=== PATIENT | male | born 1960 | race Caucasian/White ===

== ENCOUNTER 2021-07-25 10:04 | Outpatient (REF) | payer OTHER, SELFPAY ==
[2021-07-25 13:41] LABS: MANUAL DIFF FLAG NO
[2021-07-25 13:45] LABS: Basophils Absolute Auto 0.1 X10*3/uL (0.0-0.2); Basophils Percent Auto 0.6 % (0-2); Eosinophils Absolute Auto 0.6 X10*3/uL (0.0-0.4); Eosinophils Percent Auto 6.8 % (0-4); Hematocrit 40.7 % (42.0-52.0); Hemoglobin 13.5 g/dl (14.0-18.0); Imm Gran Abs Auto 0.03 X10*3/uL (0.00-0.03); Imm Gran Pct Auto 0.4 % (0.0-0.4); Lymphocytes Absolute Auto 1.2 X10*3/uL (1.2-4.9); Mean Corpuscular HGB Conc 33.2 g/dl (31.0-36.0); Mean Corpuscular Hemoglobin 29.6 pg (27.0-33.0); Mean Corpuscular Volume 89.3 fL (80.0-98.0); Mean Platelet Volume 10.1 fL (9.4-12.4); Monocytes Absolute Auto 0.6 X10*3/uL (0.1-1.2); Monocytes Percent Auto 7.4 % (2-11); Neutrophils Absolute Auto 6.01 x10*3/uL (2.0-8.3); Neutrophils Percent Auto 70.8 % (45-73); Platelet Count 219 X10*3/uL (160-400); Red Blood Count 4.56 X10*6/uL (4.60-5.80); Red Cell Distribution Width 13.2 % (11.0-16.0); White Blood Count 8.5 X10*3/uL (4.8-10.8)
[2021-07-25 13:58] LABS: Estimated Average Glucose 171 mg/dL; Hemoglobin A1c % 7.6 %
[2021-07-25 14:12] LABS: Creatinine Urine 132.69 mg/dL
[2021-07-25 14:19] LABS: Alanine Aminotransferase 27 U/L (0-40); Albumin Level 4.4 g/dL (3.5-5.0); Alkaline Phosphatase 170 U/L (39-117); Anion Gap 14 (12-20); Aspartate Amino Transferase 29 U/L (5-37); Bilirubin Total 0.6 mg/dL (0.0-1.0); Blood Urea Nitrogen 18 mg/dL (9-16); Calcium 9.2 mg/dL (8.4-10.2); Carbon Dioxide 24 mmol/L (22-29); Chloride 104 mmol/L (96-108); Cholesterol 175 mg/dL; Estimated Glomerular Filt Rate 55; Glucose Fasting 179 mg/dL (60-99); HDL Cholesterol 28 mg/dL; LDL Cholesterol Calculated 83 mg/dl; Potassium 4.6 mmol/L (3.3-5.1); Sodium 137 mmol/L (135-145); Total Protein 7.2 g/dL (6.5-8.0); Triglycerides 322 mg/dL
[2021-07-25 14:33] LABS: Prostate Specific Antigen Scr 0.93 ng/mL (<0.05-4.0)
== END 2021-07-25 10:05 | disposition home or self-care (01) ==
LOC: HO.10HDL 10:04
PROVIDERS: Visit Provider Internal Medicine
DX: Z12.5 Encounter for screening for malignant neoplasm of prostate (principal); E78.00 Pure hypercholesterolemia, unspecified; I12.9 Hypertensive chronic kidney disease with stage 1 through stage 4 chronic kidney disease, or unspecified chronic kidney disease; N18.9 Chronic kidney disease, unspecified; E11.22 Type 2 diabetes mellitus with diabetic chronic kidney disease; R35.1 Nocturia
CPT/HCPCS: 36415; 80053; 80061; 82043; 83036; 84153; 85025

== ENCOUNTER 2022-02-11 09:25 | Outpatient (REF) | payer OTHER, SELFPAY ==
[2022-02-11 10:22] LABS: MANUAL DIFF FLAG NO
[2022-02-11 10:24] LABS: Basophils Absolute Auto 0.1 X10*3/uL (0.0-0.2); Basophils Percent Auto 0.8 % (0-2); Eosinophils Absolute Auto 0.5 X10*3/uL (0.0-0.4); Eosinophils Percent Auto 5.9 % (0-4); Hematocrit 41.7 % (42.0-52.0); Hemoglobin 14.1 g/dl (14.0-18.0); Imm Gran Abs Auto 0.06 X10*3/uL (0.00-0.03); Imm Gran Pct Auto 0.7 % (0.0-0.4); Lymphocytes Absolute Auto 1.5 X10*3/uL (1.2-4.9); Lymphocytes Percent Auto 17.9 % (20-40); Mean Corpuscular HGB Conc 33.8 g/dl (31.0-36.0); Mean Corpuscular Hemoglobin 29.9 pg (27.0-33.0); Mean Corpuscular Volume 88.3 fL (80.0-98.0); Mean Platelet Volume 9.7 fL (9.4-12.4); Monocytes Absolute Auto 0.7 X10*3/uL (0.1-1.2); Monocytes Percent Auto 8.4 % (2-11); Neutrophils Absolute Auto 5.7 x10*3/uL (2.0-8.3); Neutrophils Percent Auto 66.3 % (45-73); Platelet Count 229 X10*3/uL (160-400); Red Blood Count 4.72 X10*6/uL (4.60-5.80); Red Cell Distribution Width 13.2 % (11.0-16.0); White Blood Count 8.5 X10*3/uL (4.8-10.8)
[2022-02-11 10:49] LABS: Carbon Dioxide 22 mmol/L (22-29); Chloride 106 mmol/L (96-108); Potassium 4.5 mmol/L (3.3-5.1); Sodium 137 mmol/L (135-145)
[2022-02-11 10:50] LABS: Alanine Aminotransferase 28 U/L (0-40); Albumin Level 4.5 g/dL (3.5-5.0); Alkaline Phosphatase 170 U/L (39-117); Anion Gap 14 (12-20); Aspartate Amino Transferase 26 U/L (5-37); Bilirubin Total 0.3 mg/dL (0.0-1.0); Blood Urea Nitrogen 22 mg/dL (9-16); Calcium 9.7 mg/dL (8.4-10.2); Cholesterol 196 mg/dL; Estimated Glomerular Filt Rate 53; Glucose Fasting 142 mg/dL (60-99); HDL Cholesterol 30 mg/dL; LDL Cholesterol Calculated 108 mg/dl; Total Protein 7.6 g/dL (6.5-8.0); Triglycerides 292 mg/dL
[2022-02-11 10:52] LABS: Creatinine Urine 82.01 mg/dL; Microalbum/Creatinine Ratio Ur 41.4 ug/mg cr
[2022-02-11 11:04] LABS: Estimated Average Glucose 169 mg/dL; Hemoglobin A1c % 7.5 %
== END 2022-02-11 09:26 | disposition home or self-care (01) ==
LOC: HO.10HDL 09:25
PROVIDERS: Visit Provider Internal Medicine
DX: I12.9 Hypertensive chronic kidney disease with stage 1 through stage 4 chronic kidney disease, or unspecified chronic kidney disease (principal); N18.9 Chronic kidney disease, unspecified; E11.22 Type 2 diabetes mellitus with diabetic chronic kidney disease; E78.5 Hyperlipidemia, unspecified
CPT/HCPCS: 36415; 80053; 80061; 82043; 83036; 85025

== ENCOUNTER 2022-08-06 11:39 | Outpatient (REF) | payer OTHER, SELFPAY ==
[2022-08-06 13:59] LABS: MANUAL DIFF FLAG NO
[2022-08-06 14:18] LABS: Basophils Absolute Auto 0.1 X10*3/uL (0.0-0.2); Basophils Percent Auto 0.7 % (0-2); Eosinophils Absolute Auto 0.7 X10*3/uL (0.0-0.4); Eosinophils Percent Auto 8.1 % (0-4); Hematocrit 38.7 % (42.0-52.0); Hemoglobin 12.6 g/dl (14.0-18.0); Imm Gran Abs Auto 0.02 X10*3/uL (0.00-0.03); Imm Gran Pct Auto 0.2 % (0.0-0.4); Lymphocytes Absolute Auto 1.6 X10*3/uL (1.2-4.9); Lymphocytes Percent Auto 19.1 % (20-40); Mean Corpuscular HGB Conc 32.6 g/dl (31.0-36.0); Mean Corpuscular Hemoglobin 29.4 pg (27.0-33.0); Mean Corpuscular Volume 90.4 fL (80.0-98.0); Mean Platelet Volume 9.9 fL (9.4-12.4); Monocytes Absolute Auto 0.6 X10*3/uL (0.1-1.2); Monocytes Percent Auto 7.4 % (2-11); Neutrophils Absolute Auto 5.3 x10*3/uL (2.0-8.3); Neutrophils Percent Auto 64.5 % (45-73); Platelet Count 217 X10*3/uL (160-400); Red Blood Count 4.28 X10*6/uL (4.60-5.80); Red Cell Distribution Width 14.4 % (11.0-16.0); White Blood Count 8.2 X10*3/uL (4.8-10.8)
[2022-08-06 14:21] LABS: Alanine Aminotransferase 33 U/L (0-40); Albumin Level 4.3 g/dL (3.5-5.0); Alkaline Phosphatase 150 U/L (39-117); Anion Gap 14 (12-20); Aspartate Amino Transferase 33 U/L (5-37); Bilirubin Total 0.4 mg/dL (0.0-1.0); Blood Urea Nitrogen 14 mg/dL (9-16); Calcium 8.8 mg/dL (8.4-10.2); Carbon Dioxide 24 mmol/L (22-29); Chloride 107 mmol/L (96-108); Estimated Glomerular Filt Rate 58; Glucose Random 144 mg/dL (60-115); Potassium 4.4 mmol/L (3.3-5.1); Sodium 141 mmol/L (135-145); Total Protein 7.1 g/dL (6.5-8.0)
[2022-08-06 14:26] LABS: Estimated Average Glucose 148 mg/dL; Hemoglobin A1c % 6.8 %
== END 2022-08-06 11:40 | disposition home or self-care (01) ==
LOC: HO.HMGCLDS 11:39
PROVIDERS: PCP Internal Medicine; Visit Provider Internal Medicine
DX: E11.22 Type 2 diabetes mellitus with diabetic chronic kidney disease (principal); I12.9 Hypertensive chronic kidney disease with stage 1 through stage 4 chronic kidney disease, or unspecified chronic kidney disease; N18.9 Chronic kidney disease, unspecified; Z79.4 Long term (current) use of insulin
CPT/HCPCS: 36415; 80053; 83036; 85025

== ENCOUNTER 2023-01-09 11:47 | Outpatient (REF) | payer OTHER, SELFPAY ==
[2023-01-09 13:35] LABS: MANUAL DIFF FLAG NO
[2023-01-09 13:37] LABS: Basophils Absolute Auto 0.1 X10*3/uL (0.0-0.2); Basophils Percent Auto 0.7 % (0-2); Eosinophils Absolute Auto 0.3 X10*3/uL (0.0-0.4); Hematocrit 40.5 % (42.0-52.0); Hemoglobin 13.8 g/dl (14.0-18.0); Imm Gran Abs Auto 0.04 X10*3/uL (0.00-0.03); Imm Gran Pct Auto 0.6 % (0.0-0.4); Lymphocytes Absolute Auto 1.4 X10*3/uL (1.2-4.9); Lymphocytes Percent Auto 19.5 % (20-40); Mean Corpuscular HGB Conc 34.1 g/dl (31.0-36.0); Mean Corpuscular Hemoglobin 30.8 pg (27.0-33.0); Mean Corpuscular Volume 90.4 fL (80.0-98.0); Monocytes Absolute Auto 0.6 X10*3/uL (0.1-1.2); Monocytes Percent Auto 8.9 % (2-11); Neutrophils Absolute Auto 4.8 x10*3/uL (2.0-8.3); Neutrophils Percent Auto 66.3 % (45-73); Platelet Count 205 X10*3/uL (160-400); Red Blood Count 4.48 X10*6/uL (4.60-5.80); Red Cell Distribution Width 14.1 % (11.0-16.0); White Blood Count 7.2 X10*3/uL (4.8-10.8)
[2023-01-09 13:54] LABS: Estimated Average Glucose 171 mg/dL; Hemoglobin A1c % 7.6 %
[2023-01-09 14:00] LABS: Alanine Aminotransferase 30 U/L (0-40); Albumin Level 4.2 g/dL (3.5-5.0); Alkaline Phosphatase 168 U/L (39-117); Anion Gap 16 (12-20); Aspartate Amino Transferase 22 U/L (5-37); Bilirubin Total 0.5 mg/dL (0.0-1.0); Blood Urea Nitrogen 25 mg/dL (9-16); Calcium 8.8 mg/dL (8.4-10.2); Carbon Dioxide 20 mmol/L (22-29); Chloride 107 mmol/L (96-108); Cholesterol 185 mg/dL; Estimated Glomerular Filt Rate 42; Glucose Fasting 174 mg/dL (60-99); HDL Cholesterol 30 mg/dL; LDL Cholesterol Calculated 106 mg/dl; Sodium 138 mmol/L (135-145); Total Protein 6.7 g/dL (6.5-8.0); Triglycerides 249 mg/dL
[2023-01-09 14:07] LABS: Creatinine Urine 121.86 mg/dL; Microalbum/Creatinine Ratio Ur 22.9 ug/mg cr
== END 2023-01-09 11:48 | disposition home or self-care (01) ==
LOC: HO.10HDL 11:47
PROVIDERS: Visit Provider Internal Medicine
DX: Z12.5 Encounter for screening for malignant neoplasm of prostate (principal); I12.9 Hypertensive chronic kidney disease with stage 1 through stage 4 chronic kidney disease, or unspecified chronic kidney disease; E11.22 Type 2 diabetes mellitus with diabetic chronic kidney disease; N18.9 Chronic kidney disease, unspecified; R35.1 Nocturia
CPT/HCPCS: 36415; 80053; 80061; 82043; 83036; 84153; 85025

== ENCOUNTER 2023-07-07 11:30 | Outpatient (REF) | payer OTHER, SELFPAY ==
[2023-07-07 13:09] LABS: MANUAL DIFF FLAG NO
[2023-07-07 13:28] LABS: Basophils Absolute Auto 0.1 X10*3/uL (0.0-0.2); Basophils Percent Auto 0.5 % (0-2); Eosinophils Absolute Auto 0.3 X10*3/uL (0.0-0.4); Eosinophils Percent Auto 3.3 % (0-4); Hematocrit 39.5 % (42.0-52.0); Imm Gran Abs Auto 0.06 X10*3/uL (0.00-0.03); Imm Gran Pct Auto 0.6 % (0.0-0.4); Lymphocytes Absolute Auto 1.4 X10*3/uL (1.2-4.9); Lymphocytes Percent Auto 13.7 % (20-40); Mean Corpuscular HGB Conc 32.9 g/dl (31.0-36.0); Mean Corpuscular Hemoglobin 29.8 pg (27.0-33.0); Mean Corpuscular Volume 90.6 fL (80.0-98.0); Mean Platelet Volume 9.8 fL (9.4-12.4); Monocytes Absolute Auto 0.7 X10*3/uL (0.1-1.2); Monocytes Percent Auto 6.5 % (2-11); Neutrophils Absolute Auto 7.6 x10*3/uL (2.0-8.3); Neutrophils Percent Auto 75.4 % (45-73); Platelet Count 233 X10*3/uL (160-400); Red Blood Count 4.36 X10*6/uL (4.60-5.80); Red Cell Distribution Width 14.2 % (11.0-16.0); White Blood Count 10.1 X10*3/uL (4.8-10.8)
[2023-07-07 13:55] LABS: Alanine Aminotransferase 28 U/L (0-40); Albumin Level 4.3 g/dL (3.5-5.0); Alkaline Phosphatase 142 U/L (39-117); Anion Gap 17 (12-20); Aspartate Amino Transferase 25 U/L (5-37); Bilirubin Total 0.4 mg/dL (0.0-1.0); Blood Urea Nitrogen 25 mg/dL (9-16); Calcium 9.5 mg/dL (8.4-10.2); Carbon Dioxide 18 mmol/L (22-29); Chloride 106 mmol/L (96-108); Estimated Glomerular Filt Rate 52; Glucose Random 218 mg/dL (60-115); Sodium 137 mmol/L (135-145); Total Protein 7.5 g/dL (6.5-8.0)
[2023-07-07 13:58] LABS: Thyroid Stimulating Hormone 2.65 uIU/mL (0.32-4.0)
[2023-07-07 14:09] LABS: Estimated Average Glucose 148 mg/dL; Hemoglobin A1c % 6.8 % (<6.0)
[2023-07-07 14:09] LABS: Creatinine Urine 75.16 mg/dL; Microalbum/Creatinine Ratio Ur 31.9 ug/mg cr (<30)
== END 2023-07-07 11:31 | disposition home or self-care (01) ==
LOC: HO.HMGCLDS 11:30
PROVIDERS: PCP Internal Medicine; Visit Provider Internal Medicine
DX: I12.9 Hypertensive chronic kidney disease with stage 1 through stage 4 chronic kidney disease, or unspecified chronic kidney disease (principal); E11.22 Type 2 diabetes mellitus with diabetic chronic kidney disease; N18.9 Chronic kidney disease, unspecified; R60.0 Localized edema
CPT/HCPCS: 36415; 80053; 82043; 82570; 83036; 84443; 85025

== ENCOUNTER 2023-12-03 11:14 | Outpatient (REF) | payer OTHER, SELFPAY ==
[2023-12-03 13:20] LABS: MANUAL DIFF FLAG NO
[2023-12-03 13:33] LABS: Basophils Absolute Auto 0.1 X10*3/uL (0.0-0.2); Basophils Percent Auto 0.6 % (0-2); Eosinophils Absolute Auto 0.7 X10*3/uL (0.0-0.4); Eosinophils Percent Auto 8.4 % (0-4); Hematocrit 40.9 % (42.0-52.0); Hemoglobin 13.8 g/dl (14.0-18.0); Imm Gran Abs Auto 0.03 X10*3/uL (0.00-0.03); Imm Gran Pct Auto 0.4 % (0.0-0.4); Lymphocytes Absolute Auto 1.4 X10*3/uL (1.2-4.9); Lymphocytes Percent Auto 17.1 % (20-40); Mean Corpuscular HGB Conc 33.7 g/dl (31.0-36.0); Mean Corpuscular Hemoglobin 29.6 pg (27.0-33.0); Mean Corpuscular Volume 87.8 fL (80.0-98.0); Mean Platelet Volume 9.8 fL (9.4-12.4); Monocytes Absolute Auto 0.5 X10*3/uL (0.1-1.2); Monocytes Percent Auto 5.6 % (2-11); Neutrophils Absolute Auto 5.5 x10*3/uL (2.0-8.3); Neutrophils Percent Auto 67.9 % (45-73); Platelet Count 243 X10*3/uL (160-400); Red Blood Count 4.66 X10*6/uL (4.60-5.80); Red Cell Distribution Width 13.6 % (11.0-16.0); White Blood Count 8.1 X10*3/uL (4.8-10.8)
[2023-12-03 13:47] LABS: Alanine Aminotransferase 20 U/L (0-40); Albumin Level 4.3 g/dL (3.5-5.0); Alkaline Phosphatase 141 U/L (39-117); Anion Gap 12 (12-20); Aspartate Amino Transferase 24 U/L (5-37); Bilirubin Total 0.3 mg/dL (0.0-1.0); Blood Urea Nitrogen 17 mg/dL (9-16); Calcium 9.5 mg/dL (8.4-10.2); Carbon Dioxide 24 mmol/L (22-29); Chloride 108 mmol/L (96-108); Estimated Glomerular Filt Rate 59; Glucose Random 192 mg/dL (60-115); Iron 43 mcg/dL (45-160); Percent Iron Saturation 14 % (15-50); Potassium 4.1 mmol/L (3.3-5.1); Sodium 140 mmol/L (135-145); Total Iron Binding Capacity 301 mcg/dL (228-428); Total Protein 7.5 g/dL (6.5-8.0); Unsaturated Iron Binding 258 ug/dL
[2023-12-03 14:34] LABS: Vitamin B12 359 pg/mL (200-900)
[2023-12-03 15:07] LABS: Estimated Average Glucose 120 mg/dL; Hemoglobin A1c % 5.8 % (<6.0)
[2023-12-03 16:51] LABS: Creatinine Urine 142.02 mg/dL; Microalbum/Creatinine Ratio Ur 23.2 ug/mg cr (<30)
== END 2023-12-03 11:15 | disposition home or self-care (01) ==
LOC: HO.HMGCLDS 11:14
PROVIDERS: PCP Internal Medicine; Visit Provider Internal Medicine
DX: E11.9 Type 2 diabetes mellitus without complications (principal); N18.9 Chronic kidney disease, unspecified; D64.9 Anemia, unspecified
CPT/HCPCS: 36415; 80053; 82043; 82570; 82607; 83036; 83540; 85025

== ENCOUNTER 2024-01-11 12:00 | Emergency (ER) | payer OTHER, SELFPAY ==
[2024-01-11 12:05] VITALS: BP 139/76; PULSE 92; RESP 19; TEMP 36.6; O2SAT 99; BMI 42.5
--- NOTE | 2024-01-11 12:06 | ED_ITS ---
HPI - General Adult General Chief complaint: Wound/Laceration Stated complaint: Leg lac Time Seen by Provider: 01/11/24 13:24 Source: patient and family Mode of arrival: ambulatory Limitations: no limitations History of Present Illness HPI narrative: 63-year-old male with a history of diabetes presents the ER with complaints of laceration to the right lower leg. Patient reports that he has a healing wound on his right lower leg. He had it covered with a bandage and tried to cut the bandage scissors but he slipped causing a laceration to his right lower leg. Patient reports he is unable to stop the bleeding at home. He has not on any anticoagulation or aspirin therapy. He denies any associated weakness, numbness or tingling of the extremity. His last known tetanus is unknown Related Data Allergies Allergy/AdvReac Type Severity Reaction Status Date / Time No Known Allergies Allergy Verified 01/11/24 12:07 Review of Systems Review of Systems: Yes all other systems are reviewed and are negative Constitutional: Constitutional: Reports no additional constitutional complaints, Denies body ache(s), Denies chills, Denies fever(s), Denies headache(s) and Denies weakness Eyes: Eyes: Reports no additional eye complaints and Denies change in vision ENT: Reports system reviewed and no additional complaints, except as docume nted, Denies dizziness, Denies headache(s), Denies nasal congestion, Denies nasal discharge and Denies neck pain Cardiovascular: Cardiovascular: Reports no additional cardiovascular complaints, Denies chest pain, Denies leg edema and Denies dyspnea Respiratory: Respiratory: Reports no additional respiratory complaints, Denies cough and Denies dyspnea Gastrointestinal: Gastrointestinal: Reports no additional gastrointestinal complaints, Denies abdominal pain, Denies diarrhea, Denies nausea and Denies vomiting Genitourinary: Genitourinary: Denies urinary incontinence Musculoskeletal: Musculoskeletal: Reports no additional musculoskeletal complaints, Denies back pain, Denies arthralgias, Denies joint swelling, Denies neck pain, Denies numbness and Denies tingling Integumentary/Breasts: Skin/Breast: Reports system reviewed and no additional complaints, except as docu, Denies rash and Reports wounds Neurologic: Reports system reviewed and no additional complaints, except as documented, Denies Abnormal speech present, Denies dizziness, Denies headache(s), Denies numbness, Denies tingling and Denies weakness PMFSH Past Medical History Attestation statement: The following information was validated with the patient. Source: old records reviewed and nursing notes reviewed Social History Social History Alcohol intake: never Smoked in Last 30 Days: No Use of substances other than those prescribed or required for medical reasons: No Advance Directives: No Advance Directives Information Provided: No Physical Exam ED Vital Signs: Vital Signs - 24 hr 01/11/24 12:05 01/11/24 13:11 01/11/24 14:46 Temperature 98 F 98.1 F Pulse Rate 92 90 90 Respiratory Rate 19 18 18 Blood Pressure 139/76 122/79 122/79 Pulse Oximetry 99 97 97 Oxygen Delivery Method Room Air Room Air Room Air BMI result Body Mass Index 42.5 Const General: cooperative, healthy appearing, comfortable and no acute distress Orientation/consciousness: patient oriented x3 Limitations: no limitations HENMT Head: Yes normal to inspection Ears: hearing grossly normal bilaterally General nose exam: Normal external nose present Face and sinus: Yes normal facial exam Mouth: Normal oral and palatal mucosa present Throat: Yes posterior oropharynx normal Eyes General: appearance normal, both eyes and all related structures Pupils: Equal, round and reactive pupils present Neck Neck: Yes normal visual inspection Chest Chest palpation & inspection: normal inspection of the chest Resp Effort & Inspection: normal respiratory effort Auscultation: clear to auscultation bilaterally Cardio Rate: regular rate Rhythm: regular rhythm Peripheral pulses: Peripheral pulses 2+ throughout GI Inspection: Yes normal to inspection Palpation (GI): Soft to palpation and nontender Auscultation: normal bowel sounds Back/Spine/Pelvis Thoracic/Lumbar Spine: thoracic and lumbar spine normal to inspection Skin General skin exam: no rashes or lesions noted Neuro General: patient oriented x3, no focal motor deficits and normal sensation to monofilament Cranial nerves: Yes Equal, round and reactive pupils present Cognition (Neuro): normal cognition Speech: No Abnormal speech present Gait exam (Neuro): Normal gait present Motor exam (neuro): 5/5 motor strength present throughout Extrem Other: To the right lower leg there is a laceration which is approximately 4 cm with active bleeding CMS intact distally 2+ DP and PT pulse General: Yes normal to inspection Course Course Course Narrative: RME: 63 yold male presents to the ED after accidently cutting his leg with scizzor while tyring to cut off the bandaid from his leg. tdap ordered. Medications Administered Discontinued Medications Generic Name Dose Route Start Last Admin Trade Name Mary PRN Reason Stop Dose Admin Diphtheria/Tetanus/Acell Pertussis 0.5 ml 01/11/24 12:05 01/11/24 13:10 Diphth,Pertus(Acell),Tet Adult 0.5 Ml Syringe IM 01/11/24 12:06 0.5 ml .ONCE ONE Administration Lidocaine/Epinephrine 20 ml 01/11/24 13:37 01/11/24 13:43 Lidocaine Hcl 1%/Epi 1:100,000 20 Ml Vial INFILTRATI 01/11/24 13:38 Not Given ONCE ONE Lidocaine/Epinephrine 10 ml 01/11/24 13:39 01/11/24 13:57 Lidocaine Hcl 1%/Epi 1:100,000 30 Ml Vial INFILTRATI 01/11/24 13:40 Not Given ONCE ONE Lidocaine/Epinephrine 10 ml 01/11/24 13:40 01/11/24 13:56 Lidocaine Hcl 1%/Epi 1:100,000 10 Ml Vial INFILTRATI 01/11/24 13:41 10 ml ONCE ONE Administration Procedures Laceration Laceration 1: Site: lower extremity Side (If applicable): right Size (cm): 4 Description: linear Depth: simple, single layer Local Anesthetic: lidocaine 1% and with epi Amount of anesthesia used (mL): 10 Pre-repair: wound explored and irrigated extensively (2 L NS) Skin layer closed with: vicryl Size (cm): 5-0 Number of sutures: 3 Technique: simple, interrupted Medical Decision Making Medical Decision Making MDM Narrative: 63-year-old male with a history of diabetes presents the ER with complaints of laceration to the right lower leg.? Patient reports that he has a healing wound on his right lower leg.? He had it covered with a bandage and tried to cut the bandage scissors but he slipped causing a laceration to his right lower leg.? Patient reports he is unable to stop the bleeding at home.? He has not on any anticoagulation or aspirin therapy.? He denies any associated weakness, numbness or tingling of the extremity.? His last known tetanus is unknown To the right lower leg there is a laceration which is approximately 4 cm with active bleeding CMS intact distally 2+ DP and PT pulse Tetanus updated 10 mL of lidocaine with epinephrine was infiltrated into the site which improved bleeding. See procedure note for wound closure. Patient was then observed for 15-20 minutes postprocedure to ensure the bleeding was controlled. No additional bleeding and patient was discharged home Differential Diagnosis Differential Diagnoses: The differential diagnosis associated with the presentation includes Laceration Low suspicion for vascular injury, FB Admission/Observation Consideration of admission/observation: Escalation of care including admission/observation considered Low suspicion for vascular injury, foreign body requiring imaging, urgent orthopedic consultation and/or admission Independent Historian Clinical information obtained from an independent historian. History obtained from or confirmed by: Spouse Tests considered The following testing was considered but not selected: Low suspicion for vascular injury, foreign body requiring imaging, Prescription Management I considered prescription management with: Antibiotic Patient is on antibiotics for left foot infection currently Discharge Plan Discharge Clinical Impression: Laceration Patient Disposition: Home, Self-Care Instructions: Laceration (ED) Additional Instructions: Sutures out in 7-10 days Keep the wound clean covered and dry for the next 24 hours and then you may remove it and change dressing daily. Please keep the site wrapped with plastic wrap while showering and do not get it wet Referrals: Quinton Lovell MD [Primary Care Provider] - 1 week Interventions: ED Discharge Assessment Last Done: 01/11/24 14:46 Discharge Date/Time: 01/11/24 14:47 Print Language: East Timorese
[2024-01-11] MEDS: Diphth,Pertus(ACell),Tet Adult 0.5 ML SYRINGE IM (13:10)
[2024-01-11 13:11] VITALS: BP 122/79; PULSE 90; RESP 18; O2SAT 97
[2024-01-11] MEDS: Lidocaine HCl 1%/Epi 1:100,000 10 ML VIAL INFILTRATI (13:56)
[2024-01-11 14:46] VITALS: BP 122/79; PULSE 90; RESP 18; TEMP 36.7; O2SAT 97
== END 2024-01-11 14:47 | disposition home or self-care (01) ==
PROVIDERS: Emergency Provider Emergency Medicine; PCP Internal Medicine
DX: S81.811A Laceration without foreign body, right lower leg, initial encounter (principal); S80.811A Abrasion, right lower leg, initial encounter; W26.9XXA Contact with unspecified sharp object(s), initial encounter; Y93.9 Activity, unspecified; Y92.9 Unspecified place or not applicable; Y99.8 Other external cause status
CPT/HCPCS: 12002; 90471; 90715; 99284

== ENCOUNTER 2024-06-01 11:23 | Outpatient (REF) | payer OTHER, SELFPAY ==
[2024-06-01 13:09] LABS: MANUAL DIFF FLAG NO
[2024-06-01 13:18] LABS: Basophils Absolute Auto 0.1 X10*3/uL (0.0-0.2); Basophils Percent Auto 0.8 % (0-2); Eosinophils Absolute Auto 0.6 X10*3/uL (0.0-0.4); Eosinophils Percent Auto 10.2 % (0-4); Hematocrit 39.6 % (42.0-52.0); Hemoglobin 13.2 g/dl (14.0-18.0); Imm Gran Abs Auto 0.02 X10*3/uL (0.00-0.03); Imm Gran Pct Auto 0.3 % (0.0-0.4); Lymphocytes Absolute Auto 1.2 X10*3/uL (1.2-4.9); Lymphocytes Percent Auto 19.9 % (20-40); Mean Corpuscular HGB Conc 33.3 g/dl (31.0-36.0); Mean Corpuscular Hemoglobin 29.3 pg (27.0-33.0); Mean Corpuscular Volume 87.8 fL (80.0-98.0); Mean Platelet Volume 9.9 fL (9.4-12.4); Monocytes Absolute Auto 0.5 X10*3/uL (0.1-1.2); Monocytes Percent Auto 8.7 % (2-11); Neutrophils Absolute Auto 3.6 x10*3/uL (2.0-8.3); Neutrophils Percent Auto 60.1 % (45-73); Platelet Count 200 X10*3/uL (160-400); Red Blood Count 4.51 X10*6/uL (4.60-5.80)
[2024-06-01 13:51] LABS: Alanine Aminotransferase 29 U/L (0-40); Albumin Level 4.2 g/dL (3.5-5.0); Alkaline Phosphatase 137 U/L (39-117); Anion Gap 13 (12-20); Aspartate Amino Transferase 27 U/L (5-37); Bilirubin Total 0.3 mg/dL (0.0-1.0); Blood Urea Nitrogen 21 mg/dL (9-16); Calcium 8.8 mg/dL (8.4-10.2); Carbon Dioxide 21 mmol/L (22-29); Chloride 112 mmol/L (96-108); Cholesterol 161 mg/dL (<200); Estimated Glomerular Filt Rate 56; Glucose Fasting 84 mg/dL (60-99); HDL Cholesterol 30 mg/dL (>40); LDL Cholesterol Calculated 85 mg/dL (<100); Potassium 4.1 mmol/L (3.3-5.1); Sodium 142 mmol/L (135-145); Triglycerides 231 mg/dL (<150)
[2024-06-02 11:04] LABS: Free Prostate Spec Ag 0.7 ng/mL; Percent Free Prostate Spec Ag 39 % (calc) (>25); Prostate Specific Ag Total 1.8 ng/mL (< OR = 4.0)
== END 2024-06-01 11:24 | disposition home or self-care (01) ==
LOC: HO.HMGCLDS 11:23
PROVIDERS: PCP Internal Medicine; Visit Provider Internal Medicine
DX: E11.22 Type 2 diabetes mellitus with diabetic chronic kidney disease (principal); E11.40 Type 2 diabetes mellitus with diabetic neuropathy, unspecified; I12.9 Hypertensive chronic kidney disease with stage 1 through stage 4 chronic kidney disease, or unspecified chronic kidney disease; N18.9 Chronic kidney disease, unspecified
CPT/HCPCS: 36415; 80053; 80061; 84154; 85025

== ENCOUNTER 2024-09-29 10:28 | Outpatient (REF) | payer OTHER, SELFPAY ==
[2024-09-29 13:14] LABS: Basophils Absolute Auto 0.1 X10*3/uL (0.0-0.2); Basophils Percent Auto 0.8 % (0-2); Hematocrit 43.9 % (42.0-52.0); Neutrophils Percent Auto 71.3 % (45-73); Red Cell Distribution Width 13.9 % (11.0-16.0)
[2024-09-29 13:16] LABS: Eosinophils Absolute Auto 0.4 X10*3/uL (0.0-0.4); Eosinophils Percent Auto 4.9 % (0-4); Hemoglobin 14.6 g/dl (14.0-18.0); Imm Gran Abs Auto 0.02 X10*3/uL (0.00-0.03); Imm Gran Pct Auto 0.3 % (0.0-0.4); Lymphocytes Absolute Auto 1.1 X10*3/uL (1.2-4.9); Lymphocytes Percent Auto 14.9 % (20-40); Mean Corpuscular HGB Conc 33.3 g/dl (31.0-36.0); Mean Corpuscular Hemoglobin 29.9 pg (27.0-33.0); Mean Corpuscular Volume 89.8 fL (80.0-98.0); Mean Platelet Volume 10.2 fL (9.4-12.4); Monocytes Absolute Auto 0.6 X10*3/uL (0.1-1.2); Monocytes Percent Auto 7.8 % (2-11); Neutrophils Absolute Auto 5.2 x10*3/uL (2.0-8.3); Red Blood Count 4.89 X10*6/uL (4.60-5.80)
[2024-09-29 13:26] LABS: Platelet Count 204 X10*3/uL (160-400); White Blood Count 7.3 X10*3/uL (4.8-10.8)
[2024-09-29 13:29] LABS: Estimated Average Glucose 105 mg/dL; Hemoglobin A1C 133.9316 umol/L; Hemoglobin A1c % 5.3 % (<6.0); Total Hemoglobin (HGBA1C) 3867.4484 umol/L
[2024-09-29 13:46] LABS: Alanine Aminotransferase 42 U/L (0-40); Albumin Level 4.5 g/dL (3.5-5.0); Alkaline Phosphatase 137 U/L (39-117); Anion Gap 16 (12-20); Aspartate Amino Transferase 49 U/L (5-37); Bilirubin Total 0.5 mg/dL (0.0-1.0); Blood Urea Nitrogen 22 mg/dL (9-16); Calcium 9.5 mg/dL (8.4-10.2); Carbon Dioxide 21 mmol/L (22-29); Chloride 112 mmol/L (96-108); Estimated Glomerular Filt Rate 47; Glucose Random 98 mg/dL (60-115); Potassium 5.1 mmol/L (3.3-5.1); Sodium 144 mmol/L (135-145); Total Protein 8.1 g/dL (6.5-8.0)
== END 2024-09-29 10:29 | disposition home or self-care (01) ==
LOC: HO.HMGCLDS 10:28
PROVIDERS: PCP Internal Medicine; Visit Provider Internal Medicine
DX: E11.9 Type 2 diabetes mellitus without complications (principal); I10 Essential (primary) hypertension; N18.9 Chronic kidney disease, unspecified
CPT/HCPCS: 36415; 80053; 83036; 85025

== ENCOUNTER 2025-01-13 10:39 | Outpatient (AMB) | payer OTHER, SELFPAY ==
--- NOTE | 2025-01-13 10:44 | MHC.PC.OV ---
Vital Signs 01/13/25 10:46 Height 5 ft 10 in Weight 322 lb 6 oz BMI 46.3 BP 132/78 Blood Pressure Location Rt brachial Position Sitting Pulse 95 Pulse Source Pulse Oximeter Temp 96.6 F L Temp Source Temporal Artery Scan Pulse Oximetry (%) 96 Oxygen Delivery Method Room Air Intake Visit Reasons: Follow up / Intake Note: Patient is here to follow up on HTN, DM. Marketing Area Manager Required: No Lusterer: Not Required per policy Accompanied by: Self / Same As Patient Allergies No Known Allergies Allergy (Verified 01/13/25 10:46) Tobacco use date assessed: 01/13/25 Dental Screening Dental Screen Date: 01/13/25 Did you have a dental visit in the last 12 months?: Yes Did you have a dental problem in the last 6 months where you did not have access to dental care?: No Was dental information given to patient?: Patient has dentist [facility] Surgical History (Updated 01/13/25 @ 10:56 by DENIS Call) History of ear, nose, and throat (ENT) surgery History of total right knee replacement Social History (Updated 01/13/25 @ 10:45 by DENSI Call) Housing: House Alcohol intake: never Patient Tobacco Use Status: Never used Tobacco e-Cigarette/Vaping Use: Never Used Second Hand Smoke Exposure: No service: No Current occupational status: employed 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 1. Little interest or pleasure in doing things: not at all 2. Feeling down, depressed, or hopeless: not at all 3. Trouble falling or staying asleep, or sleeping too much: not at all 4. Feeling tired or having little energy: not at all 5. Poor appetite or overeating: not at all 6. Feeling bad about yourself - or that you are a failure or have let yourself or your family down: not at all 7. Trouble concentrating on things, such as reading the newspaper or watching television: not at all 8. Moving or speaking so slowly that other people could have noticed. Or the opposite - being so fidgety or restless that you have been moving around a lot more than usual: not at all 9. Thoughts that you would be better off or of hurting yourself in some way: not at all Total score: 0 Depression Screening Interpretation: Negative Depression Screening Done: Yes Source: Developed by Drs. Sundar Luna, Peggy Kevin, Omkar Vega and colleagues, with an educational john from [employer]. Thrive Questionnaire Date Thrive assessed: 01/13/25 I am a: Patient What is your living situation today?: I have a steady place to live Within the past 12 months, did the food you bought not last and you didn't have the money to get more?: Never true Within the past 12 months, did you worry whether your food would run out before you got money to buy more?: Never true Do you have trouble paying for medicines?: No Do you have trouble getting transportation to medical appointments?: No Do you have trouble paying your heating and electricity bill?: No Do you have trouble taking care of your child, family member or friend?: No Do you have trouble with day-to-day activities such as bathing, preparing meals, shopping, managing finances, etc.?: No Are you currently unemployed and looking for a job?: No Are you interested in more education?: No Please select the resources that you would like help with: None Currently or been in a relationship where the following occur: No concerns reported THRIVE Score: 0 AUDIT C Alcohol Use Questionnaire (AUDIT-C) 1. How often do you have a drink containing alcohol?: Never Total Score: 0 MELODIE-7 AMB Questionnaire MELODIE-7 Date MELODIE - 7 assessed: 01/13/25 Feeling nervous, anxious, or on edge: 0 = Not at all Not being able to stop or control worryin = Not at all Worrying too much about different things: 0 = Not at all Trouble relaxin = Not at all Being so restless that it is hard to sit still: 0 = Not at all Becoming easily annoyed or irritable: 0 = Not at all Feeling afraid as if something awful might happen: 0 = Not at all Total MELODIE-7 score (0-4 normal; 5-9 mild; 10-14 moderate; 15-21 severe): 0 Source: Developed by Peggy MensahW. Herberth, Omkar Vega and colleagues, with an educational john from [employer]. Physical exam (Primary Care) Depression Screening Interpretation: Negative Currently or been in a relationship where the following occur: No concerns reported Results AMB Hemoglobin A1c AMB Hemoglobin A1c 5.6 % Last Edit by DENIS Call on 01/13/25 11:10 Coding Assessment & Plan Assessment & Plan Orders: Orders AMB Hemoglobin A1c Today Z13.9 - Encounter for screening, unspecified
[2025-01-13 10:46] VITALS: BP 132/78; PULSE 95; TEMP 35.9; O2SAT 96; BMI 46.3
--- OUTSIDE RECORDS SUMMARY | 2025-01-13 12:25 | XMS_ITS ---
Author Organization [facility] Address [address] [place] [address] Care Team Providers Care Sodium Methylate Operator Name Role Phone Quinton Lovell MD Primary Care Provider Unavaila Brian Scott [phone] REASON FOR VISIT Cx 06/22/24 appt Encounters Encounter [facility] Date [facility] [address] [facility]/19/[facility]24 Brian Hutchins Plan Of Treatment No Information Progress Notes * Eliel DE LEÓNDOB: [birth year] (64 yo M)Acc No.[id number]:04/19/2024 Patient:?Eliel De León :1960???Age:64 Y???Sex:Male Address:[address] [place] [address] [facility] [place] [address] * true * Date:? Generated for Printi ng/Fachrisg/eTransmitting on:?01/13/2025 12:25 PM EDT
--- OUTSIDE RECORDS SUMMARY | 2025-01-13 12:25 | XMS_ITS ---
Author Organization [facility] Address [address] [place] [address] Care Team Providers Care Director Video Name Role Phone Nas CASTRO, Quinton Primary Care Provider Brian Fernández Unavailable [phone] Encounters Encounter Location Date Provider Diagnosis [facility] [address] [place] [address] 06/22/2024 Brian Hutchins Plan Of Treatment No Information Progress Notes * Eliel DE LEÓNDOB: [birth year] (64 yo M)Acc No.[id number]:06/22/2024 Progress Note Patient:Eliel LOVE Provider:?Brian Hutchins DPM :1960???Age:64 Y???Sex:Male Vaughn e:06/22/2024 Address:[address] [place] [address] [address] [facility] [place] Pcp:Quinton Lovell MD Subjective: * Chief Complaints: * ??? * Medical History:? Objective: * Vitals:? Assessment: Plan: * Treatment: * Images: * The named appointment provid er may or may not be the originator of this progress note, and it is not deemed complete until electronically signed by the appointment provider. Sign off status: Pending * Provider:?Brian Hutchins DPM Date:?2023 Generated for Printi ng/Faxing/eTransmitting on:?01/13/2025 12:25 PM EDT
--- OUTSIDE RECORDS SUMMARY | 2025-01-13 12:25 | XMS_ITS | Patient Health Record ---
Author [facility] Address [address] [facility] [place] [address] Care Team Providers Care Drywall Mechanic Name Role Phone Quinton Lovell MD Primary Care Provider Brian Fernández Unavailable [phone] Rosemary Brown Unavailable [phone] Allergies No Known Allergies Results Component Value Reference Range Notes HEMOGLOBIN A1C (GLYCOHEMOGLO BIN) Reviewed date:03/29/2024 01:10:05 PM Interpretation: Performing Lab: Notes/Report: HEMOGLOBIN A1C % (HH) 5.8 Reason For Referral No Information Medications Medication SIG (Take, Route, Frequency, Duration) Notes Start Date End Date Status Insulin Active glipiZIDE 10 MG 1 tablet 30 minutes before breakfast Orally Twice a day Active AFO-fixed . 1 . Wear daily for . 03/29/2024 Active Losartan Potassium A ctive Extra Depth Orthopedic Shoes (1 Pair) with Customized Heat Molded Multidensity Innersoles (3 Pair) as directed Dx: NIDDM/Polyneuropathy (E11.42), Hammertoe Foot Deformity (M20.41,M20.42), Preulcerative Skin Lesion(s) (L85.1 09/13/2020 Unknown Simvastatin Unknown metFORMIN HCl 1000 MG 1 tablet with a me al Orally Twice a day Active Lisinopril 30 MG 1 tablet Orally Once a day Unknown Lantus Active AFO-fixed . 1 . Wear daily for . 09/13/2020 Unknown Immunizations Vaccine Route Administration Date Status Comme nts Influenza Unknown 09/13/2020 Administered Social History Tobacco Use: Social History Observation [...] Are you an other tobacco user? No Problems Problem Type SNOMED Code ICD Code Onset Dates Problem Status W/U Status Risk Notes Problem Polyneuropathy due to type 2 diabetes mellitus (985427244) Type 2 diabetes mellitus with diabetic polyneuropathy (E11.42) Active confirmed Vital Signs Height 5ft 11in in 03/29/2024 Weight 290 lbs 03/29/2024 BMI 40.44 kg/m2 03/29/2024 Procedures Procedure Date Ordered Date Performed Result Body Sit e 50763-LULVPVD NAIL, 6 OR MORE 03/29/2024 N/A 10632-TUWI SKIN LESIONS, 2 TO 4 03/29/2024 N/A Encounters Encounter Location Date Provider Diagnosis [address] [address] 03/29/2024 Brian Hutchins Type 2 diabetes mellitus with diabetic polyneuropathy E11.42 ; Tinea unguium B35.1 and Left foot drop M21.[address] [address] 04/19/2024 Brian Hutchins [address] [address] 04/19/2024 Brian Hutchins Assessments Encounter Date Diagnosis (ICD Code) Assessment Notes Treatment Notes Treatment Clinical Notes Section Notes 03/29/2024 Type 2 diabetes mellitus with diabetic polyneuropathy (ICD-10 - E11.42) 03/29/2024 Tinea unguium (ICD-10 - B35.1) 03/29/2024 Left foot drop (ICD-10 - M21.372) Plan Of Treatment Pending Test Test Name Order Date [id number]-WFKXHHN NAIL, 6 OR MORE 03/29/2024 49680-IGAX SKIN LESIONS, 2 TO 4 03/29/20 24 Insurance Providers Payer Name Payer Address Payer Phone Subscriber Number Group Number Insured Name Patient Relationship to Insured Coverage Start Date Coverage End Date [facility] [address] [place] [id number] [phone] [id number] Eliel Tay Self - patient is the insured Medical (General) History Medical History History ICD Code Neuropathy type II diabetes High blood pressure Lung disease asthma Surgical History Surgery Date(Month/Year) back surgery 08/2014 3 sinus surgery 2012 foot sx Blister 11/2018
--- OUTSIDE RECORDS SUMMARY | 2025-01-13 12:26 | XMS_ITS | Data Portability ---
Author Organization [facility] [address] Address [address] [place] [address] Care Team Providers Care Senior Front End Developer Name Role Phone NAYELI GALINDO Primary Care Provider [phone] Assessment No assessment recorded. Plan of Treatment Reminders Order Date Submit Date Provider Last Modified By Organization Details Last Modified Time Details Appointments None recorded. Lab glucose, fingerstick , blood 2022 023 THEE [facility] [place], [address], 3 10:17:47 Referral wound care referral 2022 023 [email or web address] 26 [facility], [address] [place] [address], [address], 3 07:45:56 Procedures None recorded. Surgeries None recorded. Imaging None recorded. Medication Orders cephalexin 500 mg capsule 2022 023 [email or web address] 247 [id number], [address] [place], [address], 3 18:53:01 Patient TargetsNo targets recorded. Patient Instructions Encounter Date Encounter Id Patient Instructions Last Modified By Organization Details Last Modified Time 03/02/2023 [id number] application of wound dressing* THEE Not available 03/04/2023 08:25:58 Return to [facility] in 2 days for dressing change and wound re-evaluation. Schedule an appointment with the wound care clinic as soon as possible. Go directly to the ER if: The rash spreads beyond the dressing The are becomes painful There are red streaks coming up your leg You develop a fever Your blood sugar level increases from you average levels [email or web address] Not available 03/02/2023 10:18:07 Reason for Referral Referring Physician: Sneha niño, Urgent Care, Encounter Date: 03/02/2023 Results Created Date Observation Date Name Description Value Unit Range Abnormal Flag Note LastModifiedBy Organization Detail LastModifiedTime 03/02/2003/02/2023 gluco se, finge rstic k, blood blood sugar - non fasting 145 mg/dL 80-140 = normal Not Available [address], [address], 03/02/2023 10:08:45 03/02/2003/02/2023 gluco se, finge rstic k, blood blood sugar - fasting mg/dL 80-125 = normal Not Available [address], [address], 03/02/2023 10:08:45 Result Notes None recorded. Problems Name Problem SNOMED Code Status Onset Date Resolution Date Notes Provider Name and Address Organization Details Recorded Time Diabetes mellitus 65367446 Active 2022 Helen hinton, [place] - [facility] 3 09:36:40 Hypertensive disorder 32171319 Active 2022 Helen hinton [place] - [facility] 3 09:36:48 Arthritis 1240226 Active 2022 Helen hinton, [place] - [facility] 3 09:37:45 Problem Notes None recorded. Procedures Surgical History Date Name Laterality Status Provider Name and Address Organization Details Recorded Time 3 Wound Dressing completed SNEHA SHELDON MD On license of [facility] [place], [address], [place] - [facility] 03/11/2023 19:08:03 Imaging Results None recorded. Procedure Notes None recorded. Medical Equipment None Reported. Allergies No known drug allergies Medications Name Sig Start Date Stop Date Status Note LastModified by Organization Details LastModified Time meloxicam 15 mg tablet TAKE 1 TABLET BY MOUTH ONCE DAILY 03/02 completed Not Available Not Available Not Available glipizide 10 mg tablet TAKE 1 TABLET BY MOUTH TWICE A DAY active Not Available Not Available No t Available simvastatin 10 mg tablet TAKE 1 TABLET BY MOUTH AT BEDTIME. 03/02 completed Not Available Not Available Not Available Humalog U-100 Insulin 100 unit/mL subcutaneou s solution INJECT 25 UNIT SUBCUTANE OUSLY THREE TIMES A DAY WITH MEALS active Not Available Not Available No t Available Neredekal.comToCoderwall Ultra Test strips USE TO TEST 6 TIMES A DAY 03/02 completed Not Available Not Available Not Available cephalexin 500 mg capsule Take 2 capsules twice a day by oral route for 7 days. 2022 active Not Available Not Available Not Avai lable Advair Diskus 500 mcg-50 mcg/dose powder for inhalation INHALE 2 PUFFS DIRECTED TWICE A DAY active Not Available Not Available No t Available clobetasol 0.05 % topical ointment PLEASE SEE ATTACHED FOR DETAILED DIRECTION S 03/02 completed Not Available Not Available Not Available albuterol sulfate HFA 90 mcg/actuati on aerosol inhaler INHALE 1 PUFF BY MOUTH EVERY DAY DIRECTED active Not Available Not Available No t Available losartan 100 mg tablet TAKE 1 TABLET BY MOUTH EVERY DAY active Not Available Not Available No t Available valsartan 160 mg tablet TAKE 1 TABLET BY MOUTH EVERY DAY 03/02 completed Not Available Not Available Not Available Euflexxa 10 mg/mL (mw 2.4-3.6 million) intra-artic ular syringe 03/02 completed Not Available Not Available Not Available Levemir U-100 Insulin 100 unit/mL subcutaneou s solution active Not Available Not Available N ot Available Trulicity 0.75 mg/0.5 mL subcutaneou s pen injector INJECT 0.5 ML (0.75 MG TOTAL) UNDER THE SKIN EVERY 7 DAYS 03/02 completed Not Available Not Available Not Available Dexcom G6 Sensor device DIRECTED EVERY 10 DAYS 90 DAYS 03/02 completed Not Available Not Available Not Available Dexcom G6 Transmitter device USE DIRECTED 90 03/02 completed Not Available Not Available Not Available Baqsimi 3 mg/actuatio n nasal spray INSTILL 1 SPRAY NASALLY ONCE NEEDED active Not Available Not Available No t Available Semglee (insulin glargine-yf gn) 100 unit/mL subcutaneou s solution INJECT 65 UNITS UNDER THE SKIN NIGHTLY AT BEDTIME. active Not Available Not Available No t Available Vitals Date Recorded Body height Body mass index (BMI) Body weight Pain severity - 0-10 verbal numeric rating [Score] - Reported Respiratory rate Body temperature Oxygen saturation Oxygen saturation in Arterial blood by Pulse oximetry Heart rate Systolic blood pressure Diastolic blood pressure Provider Name and Address Organization Details Last Updated DateTime 3 177.8 cm 47.3 kg/m2 550969. 48 g 0 18 /min 97 [degF] 97 % 97 % 81 /min 136 mm[Hg] 86 mm[Hg] Helen [facility] 3 09:39:15 Social History Question Answer Notes LastModified by Organizat ion Details LastModified Time Tobacco Smoking Status Never Smoker [facility] 03/02/2023 09:37:51 What Is Your Level Of Alcohol Consumption? None Information not available 03/02/2023 Do You Use Any Illicit Or Recreational Drugs? No Information not available 03/02/2023 Have You Recently Traveled Abroad? No Information not available 03/02/2023 Do You Or Have You Ever Used Any Other Forms Of Tobacco Or Nicotine? No Information not available 03/02/2023 Sex: Unknown Functional Status None recorded. Mental Status None recorded. Family History Relationship Description Onset Age of this Age Resolved Age Notes LastModified by Organization Details LastModified Time Father Diabetes mellitus [email or web address] Not available 2022 09:37:35 Mother Diabetes mellitus [email or web address] Not available 2022 09:37:35 Medical History No medical history recorded. Past Encounters Encounter ID Performer Location Encounter Start Date Encounter Closed Date Diagnosis/Indication Diagnosis SNOMED-CT Code Diagnosis ICD10 Code Diagnosis Note [id number] [address] [place] [address] 03/13/2020 08:01:58 03/13/2020 09:06:51 [id number] [facility] [place] [address] 08/13/2021 09:20:42 08/13/2021 12:30:07 [id number] [address] [facility] [place] [address] 02/06/2016 11:33:15 02/06/2016 15:10:00 [id number] [address] [facility] [place] [address] 02/04/2017 09:25:30 02/04/2017 11:05:18 [id number] SNEHA SHELDON MD [address] [facility] [place] [address] 03/02/2023 08:12:40 03/02/2023 10:19:06 Open wound of lower leg 962090321 S81.802A Peripheral neuropathy due to type 2 diabetes mellitus 7285680310 107 E11.42 Health Concerns Section Related Observation LastModified by Organization Detai ls LastModified Time None Recorded Concern Status LastModified by Organization Details LastModified Time None Recorded Advance Directives Directive None Recorded Payers Encounter Date Sequence Insurance Name Policy Number Policy Oconnell Covered Member ID Oconnell Member ID Guarantor Name 03/02/2023 1 [facility] - [facility] [id number] 1 Eliel De León [id number] Eliel De León Notes Date Note Type Note Provider Name and Address Organization Details Recorded Time 03/02/2023 text/html open sore on bilateral legs x1 week. 62 yo male with Type 2 Diabetes who has had a rash on both lower legs for months. He is followed by a [employer] [facility] who prescribed clobetasol for the rash. He states that the skin over the rash stated to blister and peal off 1 week ago. He was still applying the clobetasol but the rash is spreading and the skin is still falling off. He has peripheral neuropathy so he doesn't feel pain in the area. SNEHA SHELDON MD [address] [place], [address], [place] - [facility] 03/11/2023 19:08:23
--- OUTSIDE RECORDS SUMMARY | 2025-01-13 12:26 | XMS_ITS ---
Author Organization [facility] Address [address] [facility] [place] [address] Care Team Providers Care Payroll Manager Name Role Phone Quinton Lovell MD Primary Care Provider Natea Brian Scott [phone] REASON FOR VISIT questions on balance Encounters Encounter Location Date Provider Diagnosis [facility] [address] [place] [address] 04/19/2024 Brian Hutchins Plan Of Treatment No Information Progress Notes * Eliel DE LEÓNDOB: [birth year] (64 yo M)Acc No.[id number]:04/19/2024 Patient:?Eliel De León :1960???Age:64 Y???Sex:Male Address:[address] [facility] [place], [address] * true * Date:? Generated for Printi ng/Fachrisg/eTransmitting on:?01/13/2025 12:25 PM EDT
== END 2025-01-13 11:27 | disposition home or self-care (01) ==
LOC: HO.HMCH 10:40
PROVIDERS: PCP Internal Medicine; Visit Provider Internal Medicine
DX: Z13.9 Encounter for screening, unspecified (principal)

== ENCOUNTER → 2025-01-13 10:39 | Outpatient (BNVA) | payer OTHER, SELFPAY | PROVIDERS: PCP Internal Medicine; Visit Provider Internal Medicine | DX: E11.9 Type 2 diabetes mellitus without complications (principal); E66.9 Obesity, unspecified; Z68.42 Body mass index [BMI] 45.0-49.9, adult; I10 Essential (primary) hypertension | CPT/HCPCS: 83036; 96127 ==

== ENCOUNTER 2025-03-28 09:45 | Outpatient (AMB) | payer OTHER, SELFPAY ==
[2025-03-28 08:49] VITALS: BP 130/80; PULSE 93; TEMP 36.2; O2SAT 99; BMI 43.9
--- NOTE | 2025-03-28 08:49 | MHC.PC.OV ---
Vital Signs 03/28/25 08:49 Height 5 ft 10 in Weight 306 lb BMI 43.9 BP 130/80 Blood Pressure Location Lt brachial Position Sitting Pulse 93 Pulse Source Pulse Oximeter Temp 97.1 F Temp Source Axillary Pulse Oximetry (%) 99 Oxygen Delivery Method Room Air Intake Visit Reasons: Routine L Ear ( Croke) Inspection Supervisor Required: No Accompanied by: Self / Same As Patient Allergies No Known Allergies Allergy (Verified 01/18/25 06:38) Tobacco use date assessed: 03/28/25 Fall risk assessment: No Falls in past year Last assessed Fall Risk: 03/28/25 Dental Screening Dental Screen Date: 03/28/25 Did you have a dental visit in the last 12 months?: Yes Did you have a dental problem in the last 6 months where you did not have access to dental care?: No [facility] Medical History Essential hypertension Diabetes mellitus Obesity (BMI 30-39.9) Surgical History History of ear, nose, and throat (ENT) surgery History of total right knee replacement Family History (Updated 03/28/25 @ 10:04 by Karen Wright MA) Mother No problems noted. Father No problems noted. 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 1. Little interest or pleasure in doing things: not at all 2. Feeling down, depressed, or hopeless: not at all 3. Trouble falling or staying asleep, or sleeping too much: not at all 4. Feeling tired or having little energy: not at all 5. Poor appetite or overeating: not at all 6. Feeling bad about yourself - or that you are a failure or have let yourself or your family down: not at all 7. Trouble concentrating on things, such as reading the newspaper or watching television: not at all 8. Moving or speaking so slowly that other people could have noticed. Or the opposite - being so fidgety or restless that you have been moving around a lot more than usual: not at all 9. Thoughts that you would be better off or of hurting yourself in some way: not at all Total score: 0 Source: Developed by Drs. Sundar Luna, Peggy Kevin, Omkar Vega and colleagues, with an educational john from [employer]. Thrive Questionnaire Date Thrive assessed: 03/28/25 I am a: Patient Within the past 12 months, did the food you bought not last and you didn't have the money to get more?: Never true Within the past 12 months, did you worry whether your food would run out before you got money to buy more?: Never true Do you have trouble paying for medicines?: No Do you have trouble getting transportation to medical appointments?: No Do you have trouble paying your heating and electricity bill?: No Do you have trouble taking care of your child, family member or friend?: No Do you have trouble with day-to-day activities such as bathing, preparing meals, shopping, managing finances, etc.?: No Are you currently unemployed and looking for a job?: No Are you interested in more education?: No THRIVE Score: 0 AUDIT C Alcohol Use Questionnaire (AUDIT-C) 1. How often do you have a drink containing alcohol?: Never 3. How often do you have six or more drinks on one occasion?: Never Total Score: 0 MELODIE-7 AMB Questionnaire MELODIE-7 Date MELODIE - 7 assessed: 03/28/25 Feeling nervous, anxious, or on edge: 0 = Not at all Not being able to stop or control worryin = Not at all Worrying too much about different things: 0 = Not at all Trouble relaxin = Not at all Being so restless that it is hard to sit still: 0 = Not at all Becoming easily annoyed or irritable: 0 = Not at all Feeling afraid as if something awful might happen: 0 = Not at all Total MELODIE-7 score (0-4 normal; 5-9 mild; 10-14 moderate; 15-21 severe): 0 Source: Developed by Drs. Sundar Luna, Peggy Kevin, Omkar Vega and colleagues, with an educational john from [employer]. Physical exam (Primary Care) Vital Signs: Last Vital Signs Temp 97.1 F 03/28/25 08:49 Pulse 93 03/28/25 08:49 BP 130/80 03/28/25 08:49 Pulse Ox 99 03/28/25 08:49 Oxygen Delivery Method Room Air 03/28/25 08:49 BMI result Body Mass Index 43.9 Tobacco/Smoking Status: Tobacco use Status Tobacco use date assessed 03/28/25 03/28/25 08:50 Patient Tobacco Use Status Never used Tobacco 03/28/25 08:50 e-Cigarette/Vaping Use Never Used 03/28/25 08:50 PHQ-9: PHQ-9 Score PHQ-9: Total score 0 03/28/25 10:42 Thrive Assessment: Date of Thrive Assessment Date Thrive assessed 03/28/25 03/28/25 08:50 Office Procedures Cerumen Removal From which ear canal was the cerumen removed: left Removal: irrigation, otoscope w/curette and cerumen loop/spoon Notes: patient tolerated procedure well 81399-Pps Irrigation/Lavage Coding Level of Care Code Est Pt Level 4 (56610) Complex EM visit Add On G2211 Diagnoses Diabetes mellitus E11.9 Impacted cerumen of left ear H61.22 Knee pain M25.569 CPT Codes Office Procedure - CPT: 91022-Jwx Irrigation/Lavage ([id number]) Assessment & Plan Assessment & Plan (1) Diabetes mellitus: Code(s): E11.9 - Type 2 diabetes mellitus without complications Category: Medical Plan: Stop the glipizide ordered. Blood work ordered. Will adjust the insulin doage accordingly. (2) Impacted cerumen of left ear: Code(s): H61.22 - Impacted cerumen, left ear Plan: Patient tolerated procedure well (3) Knee pain: Code(s): M25.569 - Pain in unspecified knee Plan: Patient is requesting PT referral to strengthen legs. Plan History of Present Illness - The patient is a 65-year-old male presenting with ear pain and blockage. - Reports an ear infection starting a couple of weeks ago, likely due to air conditioning exposure. - Ear blockage lasted five to seven days, with residual pain. - History of sinus polyps with surgeries ten years ago, no recent issues. - Managing diabetes with insulin, metformin, and glipizide; plans to stop glipizide. - Knee replacement last year, returned to work, experiencing leg discomfort. - Reports heart murmur, awaiting echocardiogram approval. 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 - Physical activity: Reports working seven days a week, leading to leg discomfort. Review of Systems - Ears: Reports ear pain and blockage for five to seven days, currently improved. - Endocrine: Reports well-controlled blood sugars with current medication regimen. - Musculoskeletal: Reports leg discomfort following knee replacement surgery. Physical Exam General: Cooperative and healthy appearing Nutritional Appearance: Well nourished Orientation/consciousness: Patient oriented x3 Limitations: No limitations Head: Normal to inspection General: Appearance normal, both eyes and all related structures Neck: Normal visual inspection Chest: Normal palpation of entire chest wall Respiratory: N ormal respiratory effort Neurology: Patient oriented x3, but reports a history of knee replacement and requires physical therapy for legs. Results Plan 1. Acute Otitis Media - Plan to clean the ear canal to remove excessive cerumen. 2. Diabetes Mellitus - Discontinue glipizide due to risk of hypoglycemia with insulin use. - Monitor blood glucose levels closely after discontinuation. 3. Osteoarthritis Of The Knee - Recommend physical therapy to address leg discomfort. 4. Heart Murmur - Follow up on echocardiogram approval with insurance for further evaluation. Discussion Notes I discussed with the patient the plan to clean the ear canal to alleviate symptoms of ear blockage. We also reviewed the decision to discontinue glipizide due to the risk of hypoglycemia and the need to monitor blood glucose levels closely. I recommended physical therapy for leg discomfort following knee replacement surgery. We will follow up on the echocardiogram approval with the insurance company to evaluate the heart murmur further. Patient Instructions - Stop taking glipizide and monitor your blood sugar levels closely. - Attend physical therapy sessions to help with leg discomfort. - Follow up with the insurance company regarding the echocardiogram approval. Orders: Orders AMB Cerumen Removal Today H61.22 - Impacted cerumen, left ear PT Evaluation and Treatment Today M25.569 - Pain in unspecified knee Basic Metabolic Panel Today E11.9 - Type 2 diabetes mellitus without complications, H61.22 - Impacted cerumen, left ear, M25.569 - Pain in unspecified knee Lipid Panel Today E11.9 - Type 2 diabetes mellitus without complications, H61.22 - Impacted cerumen, left ear, M25.569 - Pain in unspecified knee Complete Blood Count no Diff Today E11.9 - Type 2 diabetes mellitus without complications, H61.22 - Impacted cerumen, left ear, M25.569 - Pain in unspecified knee Liver Panel Today E11.9 - Type 2 diabetes mellitus without complications, H61.22 - Impacted cerumen, left ear, M25.569 - Pain in unspecified knee Thyroid Stimulating Hormone Today E11.9 - Type 2 diabetes mellitus without complications, H61.22 - Impacted cerumen, left ear, M25.569 - Pain in unspecified knee Hemoglobin A1c Today E11.9 - Type 2 diabetes mellitus without complications, H61.22 - Impacted cerumen, left ear, M25.569 - Pain in unspecified knee
--- OUTSIDE RECORDS SUMMARY | 2025-03-28 10:19 | XMS_ITS | Data Portability ---
Author Organization [facility], [address] Address [address] [place] [address] Care Team Providers Care Public Affairs Director Name Role Phone NAYELI GALINDO Primary Care Provider Assessment No assessment recorded. Plan of Treatment Reminders Order Date Submit Date Provider Last Modified By Organization Details Last Modified Time Details Appointments None recorded. Lab glucose, fingerstick , blood 2022 023 THEE _[facility], [facility] [place], [address], 3 10:17:47 Referral wound care referral 2022 023 [email or web address] 26 [facility], [address] [place] [address], [address], 3 07:45:56 Procedures None recorded. Surgeries None recorded. Imaging None recorded. Medication Orders cephalexin 500 mg capsule 2022 023 [email or web address] 247 [facility][id number], [address] [place], [address], 3 18:53:01 Patient TargetsNo targets recorded. Patient Instructions Encounter Date Encounter Id Patient Instructions Last Modified By Organization Details Last Modified Time 03/02/2023 [id number] application of wound dressing* THEE Not available 03/04/2023 08:25:58 Return to [facility] in 2 days for dressing change and wound re-evaluation. Schedule an appointment with the wound care clinic as soon as possible. Go directly to the ER if: The rash spreads beyond the dressing The are becomes painful There are red streaks coming up your leg You develop a fever Your blood sugar level increases from you average levels [email or web address] Not available 03/02/2023 10:18:07 Reason for Referral Referring Physician: Sneha niño, Urgent Care, Encounter Date: 03/02/2023 Results Created Date Observation Date Name Description Value Unit Range Abnormal Flag Note LastModifiedBy Organization Detail LastModifiedTime 03/02/2003/02/2023 gluco se, finge rstic k, blood blood sugar - non fasting 145 mg/dL 80-140 = normal Not Available [address] [place] [address], [id number], 03/02/2023 10:08:45 03/02/2003/02/2023 gluco se, finge rstic k, blood blood sugar - fasting mg/dL 80-125 = normal Not Available [address] [place] [address], [phone], 03/02/2023 10:08:45 Result Notes None recorded. Problems Name Problem SNOMED Code Status Onset Date Resolution Date Notes Provider Name and Address Organization Details Recorded Time Diabetes mellitus 60440313 Active 2022 Helen hinton, [place] - [facility] 3 09:36:40 Hypertensive disorder 85853701 Active 2022 Helen hinton, [place] - [facility] 3 09:36:48 Arthritis 9830423 Active 2022 Helen hinton, [place] - [facility] 3 09:37:45 Problem Notes None recorded. Procedures Surgical History Date Name Laterality Status Provider Name and Address Organization Details Recorded Time 3 Wound Dressing completed SNEHA SHELDON MD [facility] [place], [address], [place] - [facility] 03/11/2023 19:08:03 Imaging [...] Not Available Not Available No t Available [employer] Ultra Test strips USE TO TEST 6 [...] height Body mass index (BMI) Body weight Respiratory rate Body temperature Oxygen saturation Oxygen saturation in Arterial blood by Pulse oximetry Heart rate Systolic And Diastolic Provider Name and Address Organization Details Last Updated DateTime 3 177.8 cm 47.3 kg/m2 441050. 48 g 18 /min 97 [degF] 97 % 97 % 81 /min 136/86 mm[Hg] Helen CRAIN [facility] 3 09:39:15 Social History Question Answer Notes LastModified by [employer] Details LastModified Time Tobacco Smoking Status Never Smoker Helen hinton [facility] 03/02/2023 09:37:51 Have You Recently Traveled Abroad? No Information not available 03/02/2023 Sex: Unknown Functional Status Question Answer Note LastModified by [employer] Details LastModified Time Do you use any illicit or recreational drugs? No Information not available 03/02/2023 Do you or have you ever used any other forms of tobacco or nicotine? No Information not available 03/02/2023 What is your level of alcohol consumption? None Information not available 03/02/2023 Mental Status None recorded. Family History Relationship [...] SNOMED-CT Code Diagnosis ICD10 Code Diagnosis Note [id number] [address] [place] [address] 03/13/2020 08:01:58 03/13/2020 09:06:51 [id number] [address] [facility] [place] [address] 08/13/2021 09:20:42 08/13/2021 12:30:07 [id number] [address] [place] [address] 02/06/2016 11:33:15 02/06/2016 15:10:00 [id number] [address] [place] [address] 02/04/2017 09:25:30 02/04/2017 11:05:18 [id number] SNEHA SHELDON MD [address] [place] [address] 03/02/2023 08:12:40 03/02/2023 10:19:06 Open wound of lower leg 002690411 S81.802A Peripheral neuropathy due to type 2 diabetes mellitus 3135996724 107 E11.42 Health Concerns Section Related Observation LastModified by Organization Detai ls LastModified Time None Recorded Concern Status LastModified by Organization Details LastModified Time None Recorded Advance Directives Directive None Recorded Payers Insurance Date Sequence Insurance Name Policy Number Policy Oconnell Covered Member ID Oconnell Member ID Guarantor Name 03/13/2023 1 [facility] [id number] 1 Eliel De León [id number] Eliel De León 03/13/2023 1 [facility] [id number] 1 Nancy James [id number] Eliel De León Notes Date Note Type Note Provider Name and Address Organization Details Recorded Time 03/02/2023 text/html open sore on bilateral legs x1 week. 62 yo male with Type 2 Diabetes who has had a rash on both lower legs for months. He is followed by a Flooring Mechanic who prescribed clobetasol for the rash. He states that the skin over the rash stated to blister and peal off 1 week ago. He was still applying the clobetasol but the rash is spreading and the skin is still falling off. He has peripheral neuropathy so he doesn't feel pain in the area. SNEHA SHELDON MD [address] [facility] [place], [address], [place] - [facility] 03/11/2023 19:08:23
== END 2025-03-28 11:01 | disposition home or self-care (01) ==
LOC: HO.HMCHD 09:46
PROVIDERS: PCP Internal Medicine; Visit Provider Internal Medicine
DX: E11.9 Type 2 diabetes mellitus without complications (principal); H61.22 Impacted cerumen, left ear; M25.561 Pain in right knee

== ENCOUNTER → 2025-03-28 09:45 | Outpatient (BNVA) | payer OTHER, SELFPAY | PROVIDERS: PCP Internal Medicine; Visit Provider Internal Medicine | DX: H61.22 Impacted cerumen, left ear (principal); E11.9 Type 2 diabetes mellitus without complications; H92.02 Otalgia, left ear; M79.604 Pain in right leg; R01.1 Cardiac murmur, unspecified; Z79.84 Long term (current) use of oral hypoglycemic drugs; Z79.899 Other long term (current) drug therapy; Z96.651 Presence of right artificial knee joint | CPT/HCPCS: 69210; 96127 ==

== ENCOUNTER 2025-05-24 08:20 | Outpatient (REF) | payer OTHER, SELFPAY ==
--- OUTSIDE RECORDS SUMMARY | 2024-04-07 04:30 | XMS_ITS ---
Author Organization [facility] Address [address] [place] [address] Care Team Providers Care Tool And Gauge Inspector Name Role Phone Mery, Kartik Primary Care Provider Brian Hutchins Unavailable [phone] Rosemary Brown Unavailable [phone] REASON FOR VISIT Seen Sooner Medications Medication [...] 04/07/2024 Encounters Encounter Location Date Provider Diagnosis [facility] [place] [address] [place] [address] 04/07/2024 Rosemary Brown Plan Of Treatment Next Appt Details Provider Name:Savi henry, 06/06/2025 10:00:00 AM, [address] [place], [address], Progress Notes * HITESH ElielDOB: [birth year] (65 yo M)Acc No.[id number]:04/07/2024 Progress Notes Patient: Betzaida VILLEGAS Edrory Provider: Betzaida Brown DPM :1960 A ge:64 Y S ex:Male Date:04/07/2024 Address:[address] [place] [address] Pcp:Angel Ordonez Subjective: * Chief Complaints: * [...] enies. C ardiovascular: Pacemaker d enies. M DIMENSION MILL WORKER d enies. W PW d enies. C [...] yes, occasional, walking. Marital status: . 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 * Medications: T aking Lantus , Taking [...] 04/07/2024 Generated for Nelia ayoub/Kendell/Jonn on: 0 05/24/2025 08:59 AM EDT
--- OUTSIDE RECORDS SUMMARY | 2024-06-22 05:15 | XMS_ITS ---
Author Organization [facility] [place] Address [address] [place] [address] Care Team Providers Care Consumer Marketing Analyst Name Role Phone Angel Ordonez Primary Care Provider Brian Hutchins [phone] Encounters Encounter Location Date Provider Diagnosis [address] [address] 06/22/2024 Brian Hutchins Plan Of Treatment Next Appt Details Provider Name:Savi henry, 06/06/2025 10:00:00 AM, [address] [place], [address], Progress Notes * Eliel DE LEÓNDOB: [birth year] (65 yo M)Acc No.[id number]:06/22/2024 Progress Note Patient: Betzaida ENRIQUEZKAM Eliel Provider: King Hutchins DPM :1960 A ge:64 Y S ex:Male Date:06/22/2024 Address: [address] [facility] [id number] Pcp:Angel Ordonez Subjective: * Chief Complaints: * * Medical History: Objective: * Vitals: Assessment: Plan: * Treatment: * Images: * The named appointment provid er may or may not be the originator of this progress note, and it is not deemed complete until electronically signed by the appointment provider. Sign off status: Pending * Provider: King Hutchins DPM Date: 1 Generated for Nelia ayoub/Kendell/Jonn on: 0 05/24/2025 08:58 AM EDT
--- OUTSIDE RECORDS SUMMARY | 2025-05-24 08:59 | XMS_ITS | Clinical Summary ---
Author Organization [facility] Address [address] [facility] [address] [place] [phone] Phone Care Team Providers Care Senior Environmental Scientist Name Role Phone Angel Ordonez MD Primary Care Provid er Allergies Active Allergy Reactions Criticality Noted Date Comments Nsaids (Non-Steroidal Anti-Inflammatory Drug) Bronchospasm,Wheezing 12/11/2011 Medications albuterol 90 mcg/actuation inhaler Inhale 2 puffs into the lungs every 6 (six) hours as needed. 023 Active ADVAIR DISKUS 500-50 mcg/dose DISKUS Inhale 500 mcg/actuation of fluticasone into the lungs 2 (two) times a day. Uses during Winter months 023 Active DEXCOM G7 REFUND CLERK Misc by Miscellaneous route as needed. 1 each 023 Active ONETOUCH ULTRA TEST Strp stripsIndicatio ns:Type 2 diabetes mellitus with diabetic peripheral angiopathy without gangrene, with long-term current use of insulin Used to test glucose 7 times daily 700 strip 3 023 Active fluticasone propionate (FLONASE) 50 mcg/actuation nasal spray 1 spray by Nasal route daily. 024 Active aspirin 325 MG tablet Take 325 mg by mouth 2 (two) times a day. 024 Active valsartan (DIOVAN) 160 MG tablet Take 1 tablet by mouth every morning. 024 Active metFORMIN (GLUCOPHAGE) 500 MG tabletIndicatio ns:Type 2 diabetes mellitus with peripheral neuropathy Take 1 tablet (500 mg total) by mouth 2 (two) times a day with meals. 180 tablet 2 025 Active LANTUS U-100 INSULIN 100 unit/mL injection vialIndications :Type 2 diabetes mellitus with peripheral neuropathy Inject 50 Units under the skin nightly at bedtime. 50 mL 3 025 Active NOVOLOG U-100 INSULIN ASPART 100 unit/mL injection vialIndications :Type 2 diabetes mellitus with peripheral neuropathy Inject 35 Units under the skin 3 (three) times a day before meals. 100 mL 3 025 Active DEXCOM G7 SENSOR DeviIndications :Type 2 diabetes mellitus with peripheral neuropathy CHANGE EVERY 10 DAYS DIRECTED. 9 each 3 025 Active OZEMPIC 2 mg/dose (8 mg/3 mL) subcutaneous injection penIndications: Type 2 diabetes mellitus with peripheral neuropathy INJECT 2 MG SUBCUTANEOUSLY EVERY 7 DAYS 3 mL 5 025 Active semaglutide (OZEMPIC) 2 mg/dose (8 mg/3 mL) subcutaneous injection penIndications: Type 2 diabetes mellitus with peripheral neuropathy Inject 2 mg under the skin every 7 days. 3 mL 5 025 2024 Discontinued Active Problems Problem Noted Date Diagnosed Date Type 2 diabetes mellitus wit h hypoglycemia without coma, with long-term current use of insulin 04/17/2025 Assessment & Plan (04/17/2025 10:32 PM EDT): Suboptimal control because of more frequent hypoglycemia usually overnight which may be related to larger doses of NovoLog mostly given after dinner and 40 units of Lantus at 8 PM. Patient is using a Dexcom G7 which alerts him to the lows but he tends to overtreat. No severe hypoglycemia. His PCP recommended to stop the glipizide more recently likely because of the hypoglycemias. He gained 12 pounds since 10/2024. -Reviewed symptoms, prevention and treatment of hypoglycemia and increased risk of weight gain with frequent hypoglycemia -Decrease Lantus to 38 units and continue to decrease by 2 to 4 units if overnight or fasting hypoglycemia -Discussed importance to deliver NovoLog within 15 minutes before start of meal if all possible. If 2-hour after meal blood sugars trending low, patient to decrease his NovoLog dose by 2 to 4 units -Continue to stay off of glipizide because of risk of hypoglycemia -Continue metformin and Ozempic -Continue to work on carbohydrate controlled meal plan and try to increase physical activity as tolerated -Call with blood sugar problems -Follow-up in 3 months, and lab slip to PCPs labs Polyneuropathy due to type 2 diabetes mellitus 0 03/18/2023 03/18/2023 Type 2 diabetes mellitus with peripheral neuropa thy 03/18/2023 Assessment & Plan (11/01/2024 1:09 PM EST): Control is reasonable based upon the readings the patient is reading off of his meter. He does not want to download his dexcom G7 due to his insurance charging for this to be done. No frequent or severe hypoglycemia. He questions being able to increase his ozempic dosing to help curb his appetite. Discussed that there isn't a higher dose of ozempic. Discussed the dosing options for mounjaro. He doesn't want to switch at this time. Will maintain his medication regimen. Continue to work on eating healthy and being. To call or message with any issues managing his glucose levels. Up to date with ophtho. Foot and nail care good. Labs to done with PCP Assessment & Plan (03/15/2024 3:34 PM EDT): Control is unknown as the patient does not want us to download his dexcom G7 due to his insurance charging for this to be done. No frequent or severe hypoglycemia. He would like to try increasing his ozempic to 2 mg to see if he can further improve his glucose control and lessen his insulin. Discussed continuing to cut back on the insulin when the ozempic increases to help prevent lows. Continue to work on eating healthy and being. To call or message with any issues managing his glucose levels. Up to date with ophtho. Foot and nail care good. Labs to be done with PCP Assessment & Plan (12/19/2023 9:11 AM EDT): Control is doing very good based upon the patient's recall of his A1C. He is using the dexcom G& CGM to monitor his glucose levels but we don't download it due to the cost from the insurance company to the patient. No frequent or severe lows. Reviewed how to dose his insulin the night prior to surgery. Taking 10 units of lantus instead of 20 and no novolog the morning of the procedure. Will increase his ozempic to help further improve his glucose levels and hopefully be able to lower his insulin usage further. Continue to work on eating healthy and being active. To call or message with any issues managing her glucose levels. Up to date with [facility]. Labs were done at [facility] will get a copy Assessment & Plan (03/18/2023 9:11 AM EDT): Control is reasonable based upon the patient's recent blood work. His daily control is unknown as the patient doesn't wanty his dexcom G6 downloaded due to be charged for it. He needs his insulin changed due to insurance coverage. Sent to his pharmacy. He would like to meet with dieticians to help improve his glucose through improvement in his diet. Will send the referral. Continue to work on eating healthier and being active. To call or message with any issues managing his glucose levels. Up to date with [facility]. Primary hypertension 11/01/2021 Assessment & Plan (11/01/2024 12:53 PM EST): Blood pressure was elevated today. He states it was due to running late for his visit. He will discuss with his PCP to determine if adjustments are needed to his medications Assessment & Plan (09/25/2022 1:35 PM EST): Systolic blood pressure is somewhat elevated today, 162/80 Edward is at tail end of Prednisone taper for respiratory infection which may be affecting his BP. Encouraged heart healthy, low sodium diet. Educated to contact PCP if any unexplained headaches or vision changes. Should return to normal following cessation of steroid. Assessment & Plan (08/19/2022 9:50 AM EST): Well managed with BP today 132/78 Antihypertensive regimen includes ARB. Encouraged heart healthy, low sodium diet with gentle exercise. Continue to monitor. Assessment & Plan (03/19/2022 12:45 PM EDT): Elevated blood pressure today 150/98. Reports he did not take his medications today since he was unsure whether he should. Instructed him to always take his medications unless instructed specifically by medical provider to not take them or take them differently. Antihypertensive regimen includes ARB. Encouraged heart healthy, low sodium diet with gentle exercise. Continue to monitor. Assessment & Plan (11/01/2021 3:27 PM EST): Currently on ARB with today's blood pressure 128/84. Goal BP <130/80 Monitor. Other hyperlipidemia 11/01/2021 Assessment & Plan (09/25/2022 2:07 PM EST): Recent LDL 108 Goal LDL 70 (optimal) - 100 Continue statin therapy Encouraged heart healthy diet and gentle daily exercise Assessment & Plan (08/19/2022 9:53 AM EST): Recent LDL 108 Goal LDL 70 (optimal) - 100 Continue statin therapy Strongly encouraged heart healthy diet and gentle daily exercise Assessment & Plan (03/19/2022 1:24 PM EDT): Statin therapy Not able to view any recent labs Encouraged healthy diet and exercise as tolerates. Assessment & Plan (11/01/2021 3:29 PM EST): Statin therapy Not able to view any recent labs Encouraged healthy diet and exercise as tolerates. Eosinophil count raised 04/29/2012 Overview (11/12/2014): Eosinophilia Uncoded Elevated IgE 04/29/2012 Overview (11/12/2014): Elevated IgE Uncoded AERD/Samter's Triad 12/11/2011 Overview (11/12/2014): AERD/Samter's Triad Asthma 12/11/2011 Overview (11/12/2014): Asthma Loss of sense of smell 12/11/2011 Overview (11/12/2014): Loss of sense of smell Nasal polyp 12/11/2011 Overview (11/12/2014): Nasal polyp; (History of nasal polyposis) Obesity 12/04/2011 Overview (11/12/2014): Obesity Type 2 diabetes mellitus wit h diabetic peripheral angiopathy without gangrene, with long-term current use of insulin 12/04/2011 Overview (09/27/2023): Diabetes mellitus type 2, Dx 2004. Weight cycling. 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 History of weight cycling. He is followed by [facility] and thinking about getting the gastric sleeve procedure. He started a 1600-calorie diet about 6 weeks ago and reports a 27 pound weight loss so far. He is interested in adding Ozempic to his diabetes regimen to facilitate weight loss. He is using a DexMediamorph G7 CGM but he declined the download because of charges involved. Had some hypoglycemia to the 60s after dinner and 2 AM while using between 65 to 75 units of Levemir at bedtime. He is using 35 units of Humalog with lunch and dinner currently and skips the breakfast Humalog on workdays because of fear of hypoglycemia while at work. On days off takes 10 units of Humalog before breakfast. He is also on glipizide 10 mg twice a day and metformin 500 mg twice a day. We discussed symptoms, prevention and treatment of hypoglycemia. Plan to add Ozempic 0.5 mg weekly. Parallel to starting the Ozempic decrease the NovoLog to 10 units before meals. If blood sugar tends to go over 180-200 2 hours after meals, patient may increase the NovoLog by 2 to 4 units. Decrease the Levemir or Lantus by 4 to 6 units if overnight or fasting blood sugar gets below the 70s to 80s. Call if blood sugar below 70 or over 250 repeatedly. Assessment & Plan (08/12/2023 12:07 PM EST): Control is good based upon the patient's recall of his last A1C being 6.8% with his PCP. He is using the dexcom G7 to monitor his daily glucose levels. He doesn't want this downloaded as the insurance charges him for the download. No frequent or severe hypoglycemia. His weight loss management clinic and his PCP want him to use ozempic or another weekly GLP-1 to help with weight loss. Review the risks and benefits of ozempic, discuss without a recent eye exam will not prescribe ozepemic due to the increased risk of developing retinopathy. He will try to have an eye exam done prior to his up coming visit with Dr Velarde. He is also going to look at the insurance coverage of mounjaro as this medication has the most dosing adjusting capability without the noted increased risk of developing retinopathy. In September his insurance is changing his insulin coverage, he will discuss with Dr Velarde at his next visit to have his insulins changed to what is covered. Continue to work on eating healthier and trying to be active. To call or message with any issues managing his glucose levels. Up to date with ophtho, but needs to schedule his follow up. Assessment & Plan (09/25/2022 2:11 PM EST): Eliel has maintained good glycemic control since September of 2021 overall. His diabetic regimen includes GLP1ra, Metformin, and basal-bolus MDI as well as conintuing a fairly healthy diet with his A1c never >7.3% and minimal to no lows during the last year. Unfortunately he recently received a steroid joint injection and started a prednisone taper for respiratory infection over the winter holidays (last 2 weeks) which has temporarily elevated his sugars. His average glucose is 223 which is 60mg/dL higher than one month ago. He additionally had a rare set of lows when he was ill with a respiratory infection. He reports a minimal appetite with poor intake during this time while continuing diabetic medications. We discussed sick day rules with diabetes and especially use of insulin. We also decreased his basal insulin by 15% for now. Eliel is on the latter end of his Prednisone taper. Today we increased his sliding scale bolus insulin by +2u across the scale to be gradually decreased as his sugars normalize following cessation of Prednisone. This should provide improved coverage for his recent elevated PPGs. Consider optimizing his GLP1ra therapy in future if PPGs remain elevated following Prednisone taper. Finally we discussed the importance of keeping his A1c in a good range for eligibility for a TKR later in the spring. Eliel is eager to continue good diabetic control. Reviewed hypoglycemia prevention, recognition and management. Encouraged to continue to make healthy diet choices and remain as physically active as tolerates. Encouraged to contact us with any concerns or question and follow up in 6 weeks. Assessment & Plan (08/19/2022 10:16 AM EST): Improved A1c at 6.8% versus 7.5% in late spring/early summer. His GMI is currently 7.3%. Eliel reports his sugars were slightly higher due to interrupted GLP1ra therapy for a few weeks. Eliel tried to compensate by increasing his basal insulin during this interim. He also has had sporadic steroid injections for his knee which affected his sugars. His diabetic foot wound is completely resolved. His most recent GFR is 58 with 1.27 creatinine. Eliel tries to eat healthy and finds physical activity sometimes difficult due to knee pain. He reports performing seated exercises a few times per week. Plan- Continue Semglee 75u nightly. Discussed decreasing basal insulin by 20% (50u) if more than 1-2 low FPG per week. Reviewed optimal FPG 70-130, safer 90-130. More responsive bolus therapy would likely improve his PPG and daytime sugars overall. We discussed the goal of sliding scale bolus therapy and how it works. Humalog as follows 15 minutes prior to eating: Blood Sugar Insulin <100 0 110-150 2 151-200 4 201-250 6 251-300 8 301-350 10 >350 12 Reviewed target 2 hours PPG is <180, ideally <150. Plan to establish sliding scale and taper off glipizide starting next visit which ultimately would reduce the risk of hypoglycemia. Reviewed hypoglycemia prevention, recognition and management. 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 Encouraged to continue to make healthy diet choices and remain as physically active as tolerates. Encouraged to contact us with any concerns or question and follow up in 6 weeks. Assessment & Plan (03/19/2022 1:26 PM EDT): Current diabetes control requiring increased insulin likely due to Cortizone injections to joints in late November. Eliel increased his bolus insulin from max dose of 8u SSI to 25u per meal. Reports no true low sugars per glucometer, but a few into 40s on CGM. Unable to verify. Although 3 months since his last injection and continues on 25u bolus insulin per meal without lows per report. Continues also on glipizide 10 mg bid, metformin 500mg bid, Trulicity 0.75mg weekly, and Lantus 75u nightly. Average glucose per CGM reader 170 which would approximately be 200 if his report concerning low sugars is accurate. Most recent A1C is 7.5% which is slightly increased from October at 7.3%. Expects another set of steroid injections in 2 weeks. TDD presently 150u plus other diabetic medications. Discussed risks and benefits of his very high intensity insulin therapy with minimal data to review. Encouraged to decrease Lantus to 60u if FPG <100 more than 50% of the time with target 110-130. Encouraged to decrease Humalog to 20 if any blood sugars <70. Reviewed hypoglycemia prevention, recognition and management. No medications adjusted today. Baqsimi added with demonstration and instruction provided. Discussed printing download of CGM data prior to next visit and bringing glucometer as well. Encouraged to contact us if he gets another steroid injection and we can safely cover his higher sugars with insulin and reduce safely via messaging or phone if necessary. Encouraged to continue to make healthy diet choices and remain as physically active as tolerates. Encouraged to contact us with any concerns or question and follow up in 3 months. Assessment & Plan (11/01/2021 4:35 PM EST): Eliel is a pleasant 61 year old type 2 diabetic of many years who had been on MDI, now only on basal insulin with twice daily glipizide and metformin. His overall glucose control has improved significantly since starting his CGM and lifestyle modifications following with a neurology physician assistant. Reports he had 6.5% not long ago . His glucose patterns are most elevated from 6 pm to 11 pm after dinner and slightly less so 8 am to 3 pm. More recent FPGs trend in lower 100s which contraindicate an increase in his basal insulin. Reports he had numerous lows on high dose SSI. Optimal goal would be to discontinue glipizide and resume bolus insulin if necessary as it tends to be a safer medication. Unable to discuss at length with Eliel today due to time restriction. Poor candidate for SGLT2i therapy due to history of diabetic foot wound. He is a good candidate for GLP1ra therapy with its cardio-protective benefits as well as modest weight loss. Discussed risks and benefits of low dose Trulicity with Eliel in agreement. Reviewed hypoglycemia prevention, recognition and management. Encouraged to continue to make healthy diet choices and remain as physically active as tolerates. Encouraged to contact us with any concerns or question and follow up in 6 weeks with plan to discuss certain aspects of his Hx and therapy in greater depth. Encounters Date Type Department Care Team Description 04/26/2025 Telephone [facility] [address] [place] [address] [place] [address] Colleen Velarde MD Lab Orders Faxed 04/22/2025 Refill [facility] Endocrinology [address] [phone] Shannon Alejandro PA-C Medication Refill 04/11/2025 2:40 PM EDT Office Visit [facility] [address] [place] [address] Colleen Velarde MD Type 2 diabetes mellitus with hypoglycemia without coma, with long-term current use of insulin (Primary Dx); Type 2 diabetes mellitus with peripheral neuropathy 03/27/2025 Refill [facility] Endocrinology [address] [place] [address] [place] [address] Shannon Alejandro PA-C Medication Refill 03/17/2025 Refill [facility] Endocrinology [address] [place] [address] [place] [address] Colleen Velarde MD Medication Refill from Last 3 Months Immunizations Immunization Administration Dates Next Due Flu H1n1 Tiv Preservative Free 09/07/2009 INFLUENZA, SPLIT VIRUS, TRIVALENT PF 09/13/2020 INFLUENZA, SPLIT VIRUS, TRIV ALENT W/ PRESERVATIVE IM 05/12/2020,07/18/2016,06/27/2014,07/05,09/07/2009,08/01/2008 Influenza Quadrivalent MDCK w/Preservative IM 06/15/2017 Influenza, Unspecified Formulation 07/24/1999, Pneumococcal polysaccharide PPSV23 05/22/2020 Td (adult) 5 Lf Tetanus Toxo id, PF, Adsorbed 07/18/1993 Tdap 07/25/2010 Zoster recombinant 07/26/2020,05/22/2020 Social History Tobacco Use Types Packs/Day Years Used Date Smoking Tobacco: Never Passive Smoke Exposure: Never Smokeless Tobacco: Never Tobacco Cessation:Counseling Given: Not Answered Alcohol Use Standard Drinks/Week Comments Not Currently 0 (1 standard drink = 0.6 oz pur e alcohol) Education Answer Date Recorded Are you interested in more education? Not on kendall e 01/20/2023 Are you concerned about learning? Not on file 01/20/2023 No 01/20/2023 No 01/20/2023 Digital Access Answer Date Recorded No 02/16/2023 No 02/16/2023 Reliable internet access at home? Not on file 02/16/2023 Device with a working camera? Not on file Sex and Gender Information Value Date Recorded Sex Assigned at Not on file Legal Sex Male 6:34 PM EST Gender Identity Not on file Sexual Orientation Not on file Last Filed Vital Signs Vital Sign Reading Time Taken Comments Blood Pressure 115/70 04/11/2025 2:29 PM EDT Pulse 83 04/11/2025 2:29 PM EDT Temperature 36.4 C (97.6 F) 11/01/2024 9:51 AM EST Respiratory Rate 21 11/01/2024 9:51 AM EST Oxygen Saturation 98% 04/11/2025 2:29 PM EDT Inhaled Oxygen Concentration - - Weight 140.6 kg (310 lb) 04/11/2025 2:29 PM EDT Height 180.3 cm (5' 10.98 ) 11/01/2024 9:[address] Body Mass Index 43.26 11/01/2024 9:51 AM EST Plan of Treatment Upcoming Encounters Date Type Department Care Team (Late st Contact Info) Description 11/14/2025 8:20 AM EST Office Visit [facility] [address] [place] [phone] Colleen Velarde MD [address] [place] [phone] [email or web address] Health Maintenance Due Date Last Done Comments DEPRESSION SCREENING 1973 HIV ONE-TIME SCREENING (18-65 YEARS) 1979 COLOGUARD 2006 COLONOSCOPY 2006 COLORECTAL CANCER SCREENING 2006 FIT TEST 2006 FOBT 2006 09/23/2002 SIGMOIDOSCOPY 2006 VIRTUAL COLONOSCOPY 2006 DIABETIC EYE EXAM 11/12/2014 02/22/1998, , 09/16/1996, Additional history exists Adult Td,Tdap Booster 07/25/2020 07/25/2010, 993 RSV VACCINE (1 - Risk 60-74 years 1-dose series) 2021 PNEUMOCOCCAL VACCINES (50+ years) (2 of 2 - PCV) 05/22/2021 05/22/2020 CREATININE LEVEL 01/10/2024 01/09/2023, 12/04/2011 LIPID PANEL 01/10/2024 01/09/2023, 12/22, 01/09/2023, Additional history exists POTASSIUM LEVEL 01/10/2024 01/09/2023, 12/04/2011 COVID-19 VACCINE ( - season) 2024 08/05/2021 HEMOGLOBIN A1C 06/04/2024 12/03/2023, 2 , 08/06/2022, Additional history exists BLOOD PRESSURE 10/12/2025 04/11/2025 HEPATITIS C SCREENING Completed 03/19/2013 ZOSTER VACCINES Completed 07/26/2020, 05/22/2020 SMOKING STATUS SCREENING (Once After 26 Yrs) Completed 11/01/2024 HEPATITIS A VACCINES Aged Out No long er eligible based on patient's age to complete this topic HIB VACCINES Aged Out No longer eligi ble based on patient's age to complete this topic MENINGOCOCCAL VACCINES (ACWY) Aged Out No longer eligible based on patient's age to complete this topic MENINGOCOCCAL VACCINES (B) Aged Out N o longer eligible based on patient's age to complete this topic Medical Devices Not on file Procedures Procedure Name Priority Date/Time Associated Diagnosis Comments OUTSIDE HEMOGLOBIN A1C Routine 12/03/2023 OUTSIDE HDL Routine 01/09/2023 OUTSIDE POTASSIUM LEVEL Routine 01/09/2023 OUTSIDE SERUM CREATININE LEVEL Routine 01/09/2023 OUTSIDE HEPATITIS C VIRUS SCREENING Routine 03/19/2013 from Last 3 Months or Most Recently Relevant to Health Maintenance Results * Outside HbA1c (12/03/2023) Hemoglobin A1c - External 5.8 % Result [facility] Provider MD LAB BLOOD ORDERABLES Adeola l Result * Outside Potassium Level (01/09/2023) Pathologist [facility] Potassium level - External 5 3.4 - 5.0 mmol/L Result [facility] Provider MD LAB BLOOD ORDERABLES Adeola l Result * (ABNORMAL) Outside Serum Creatinine Level (01/09/2023) Pathologist [facility] Creatinine, serum - External 1.67(A) 0.8 - 1.3 mg/dL Result [facility] Provider MD LAB BLOOD ORDERABLES Adeola l Result * (ABNORMAL) Outside HDL (01/09/2023) Pathologist [facility] HDL - External 30(A) 40 - 80 mg/dL Result [facility] [facility] LAB BLOOD ORDERABLES Adeola l Result * Outside Hepatitis C Virus Screening (03/19/2013) Pathologist [facility] Hepatitis C Screening - External Neg Result [facility] Provider MD LAB BLOOD ORDERABLES Adeola l Result from Last 3 Months or Most Recently Relevant to Health Maintenance Insurance [facility] COMMUNITY [facility]ICE [facility] COMMUNITY CHOICE [facility] [place] [address] [facility] [place] [address] [facility] [address] [facility] COMMUNITY CHOICE Care Teams Senior Environmental Scientist Relationship Specialty Start Date End Date Angel Ordonez MD [address] [place] [id number] PCP - General Internal Medicine 04/11/25 Additional Source Comments The information contained in this document represents components of the legal health record. It is not the complete legal health record.[facility]
--- OUTSIDE RECORDS SUMMARY | 2025-05-24 08:59 | XMS_ITS | Patient Health Record ---
Author Organization [facility] Sergei Address [address] [facility] [place] [address] Care Team Providers Care Sales Counselor Name Role Phone MeryAngel Primary Care Provider Brian Hutchins Unavailable [phone] Savi Cantu Unavailable [phone] Allergies No Known Allergies Reason For Referral No Information Medications Medication SIG (Take, Route, Frequency, Duration) Notes Start Date End Date Status Lantus Active Losartan Potassium A ctive glipiZIDE 10 MG 1 tablet 30 minutes before breakfast Orally Twice a day Active Insulin Active AFO-fixed . 1 . Wear daily; Dura tion: . 03/29/2024 Active AFO-fixed . 1 . Wear daily; Dura tion: . 09/13/2020 Unknown Lisinopril 30 MG 1 tablet Orally Once a day Unknown Extra Depth Orthopedic Shoes (1 Pair) with Customized Heat Molded Multidensity Innersoles (3 Pair) as directed Dx: NIDDM/Polyneuropathy (E11.42), Hammertoe Foot Deformity (M20.41,M20.42), Preulcerative Skin Lesion(s) (L85.1 02/17/2025 Active metFORMIN HCl 1000 MG 1 tablet with a me al Orally Twice a day Active Simvastatin Unknown Extra Depth Orthopedic Shoes (1 Pair) with Customized Heat Molded Multidensity Innersoles (3 Pair) as directed Dx: NIDDM/Polyneuropathy (E11.42), Hammertoe Foot Deformity (M20.41,M20.42), Preulcerative Skin Lesion(s) (L85.1 09/13/2020 Unknown Immunizations Vaccine Route Administration Date Status Comme nts Influenza Unknown 09/13/2020 Administered Social History Tobacco Use: Social History Observation Description Date Details (start date - stop date) Never Smoker NA - NA Tobacco use other than smoking: Question Answer Notes Are you an other tobacco user? No Tobacco Control (Standard) Question Answer Notes Tobacco use: Nonsmoker Additional Findings: Tobacco non-user Current no nsmoker AUDIT-C (Standard) Question Answer Notes Did you have a drink containing alcohol in the p ast year? No Points 0 Interpretation Negative Problems Problem Type SNOMED Code ICD Code Onset Dates Problem Status W/U Status Risk Notes Problem Acquired hammer toe of right foot (596455484687 9105) Other hammer toe(s) (acquired), right foot (M20.41) Active confirmed Problem Acquired hammer toe of left foot (932243839645 9103) Other hammer toe(s) (acquired), left foot (M20.42) Active confirmed Problem Type 2 diabetes mellitus with diabetic polyneuropathy (E11.42) Active confirmed Vital Signs Blood pressure diastolic 65 mm Hg 02/17/2025 Height 5 ft 10 in in 02/17/2025 Blood pressure systolic 130 mm Hg 02/17/2025 Weight 290 lbs 02/17/2025 BMI 41.61 kg/m2 02/17/2025 Encounters Encounter Location Date Provider Diagnosis [facility] [address] [address] 02/17/2025 Savi Alondra Other hammer toe(s) (acquired), right foot M20.41 ; Other hammer toe(s) (acquired), left foot M20.42 ; Type 2 diabetes mellitus with diabetic polyneuropathy E11.42 and Tinea unguium B35.1 Assessments Encounter Date Diagnosis (ICD Code) Assessment Notes Treatment Notes Treatment Clinical Notes Section Notes 02/17/2025 Other hammer toe(s) (acquired), right foot (ICD-10 - M20.41) Patient Educated with: DIABETIC FOOT CARE INSTRUCTIONS. pdf (DIABETIC FOOT CARE INSTRUCTIONS. pdf) 02/17/2025 Other hammer toe(s) (acquired), left foot (ICD-10 - M20.42) 02/17/2025 Type 2 diabetes mellitus with diabetic polyneuropathy (ICD-10 - E11.42) 02/17/2025 Tinea unguium (ICD-10 - B35.1) Plan Of Treatment Pending Test Test Name Order Date [id number] NAIL, 6 OR MORE 03/29/2024 [id number] SKIN LESIONS, 2 TO 4 03/29/20 24 Next Appt Details Provider Name:Savi henry, 06/06/2025 10:00:00 AM, [address] [place], [address], Insurance Providers Payer Name Payer Address Payer Phone Subscriber Number Group Number Insured Name Patient Relationship to Insured Coverage Start Date Coverage End Date [facility] ([facility] [address] [place] [address] [id number] El[address] Tay Self - patient is the insured Medical (General) History Medical History History ICD Code Neuropathy type II diabetes High blood pressure Lung disease asthma Surgical History Surgery Date(Month/Year) back surgery 08/2014 3 sinus surgery 2012 foot sx Blister 11/2018
[2025-05-24 10:58] LABS: Hematocrit 42.7 % (42.0-52.0); Hemoglobin 14.7 g/dl (14.0-18.0); Mean Corpuscular HGB Conc 34.4 g/dl (31.0-36.0); Mean Corpuscular Hemoglobin 31.0 pg (27.0-33.0); Mean Corpuscular Volume 90.1 fL (80.0-98.0); NRBC Abs Auto 0.000 X10*3/uL (0.0-0.012); NRBC Pct Auto 0.0 /100WBC (0.0-0.2); Platelet Count 246 X10*3/uL (160-400); Red Blood Count 4.74 X10*6/uL (4.60-5.80); White Blood Count 8.8 X10*3/uL (4.8-10.8)
[2025-05-24 11:09] LABS: Hemoglobin A1C 135.7581 umol/L; Total Hemoglobin (HGBA1C) 3751.6107 umol/L
[2025-05-24 11:41] LABS: Vitamin B12 309 pg/mL (200-900)
[2025-05-24 11:58] LABS: Thyroid Stimulating Hormone 1.80 uIU/mL (0.32-4.0)
[2025-05-24 13:02] LABS: Microalbum/Creatinine Ratio Ur 10.7 ug/mg cr (<30)
[2025-05-24 13:15] LABS: Alanine Aminotransferase 137 U/L (0-40); Albumin Level 4.8 g/dL (3.5-5.0); Alkaline Phosphatase 191 U/L (39-117); Anion Gap 15 (12-20); Aspartate Amino Transferase 81 U/L (5-37); Blood Urea Nitrogen 24 mg/dL (9-16); Calcium 9.8 mg/dL (8.4-10.2); Carbon Dioxide 21 mmol/L (22-29); Chloride 108 mmol/L (96-108); Cholesterol 203 mg/dL (<200); Estimated Glomerular Filt Rate 42; HDL Cholesterol 30 mg/dL (>40); Potassium 4.4 mmol/L (3.3-5.1); Sodium 140 mmol/L (135-145); Total Protein 7.8 g/dL (6.5-8.0); Triglycerides 282 mg/dL (<150)
== END 2025-05-24 08:21 | disposition home or self-care (01) ==
LOC: HO.HMGCLDS 08:20
PROVIDERS: PCP Internal Medicine; Referring Provider Internal Medicine; Visit Provider Internal Medicine
DX: E11.42 Type 2 diabetes mellitus with diabetic polyneuropathy (principal); H61.22 Impacted cerumen, left ear; M25.569 Pain in unspecified knee
CPT/HCPCS: 36415; 80053; 80061; 82043; 82248; 82570; 82607; 83036; 84443; 85027

== ENCOUNTER 2025-05-31 08:36 | Outpatient (REF) | payer OTHER, SELFPAY ==
[2025-05-31 13:24] LABS: Appearance Urine Clear; Glucose Urine UA Negative (Negative); PH 5.5 (5.0-9.0); Specific Gravity - Urine 1.015 (1.005-1.025); UMIC TRIGGER UACC YES
[2025-05-31 13:59] LABS: UACC Culture Trigger YES
[2025-06-01 03:30] LABS: HBS Num1 0.00 mIU/mL (0-7.99); HBc Num1 0.08 S/CO (0.00-0.79); HBsAGNum1 0.39 S/CO (0.00-0.99); Hepatitis A Antibody IgM 0.17 Index (0-0.79); Hepatitis B Surface Antigen Negative (Negative); ~HepC Num1 0.10 S/CO (0.00-0.79); ~Hepatitis A Antibody IgM Nonreactive (Nonreactive); ~Hepatitis B Surface Antibody NONREACTIVE (Nonreactive); ~Hepatitis C Antibody Nonreactive (Nonreactive)
== END 2025-05-31 08:37 | disposition home or self-care (01) ==
LOC: HO.HMGCLDS 08:36
PROVIDERS: PCP Student in an Organized Health Care Education/Training Program; Visit Provider Student in an Organized Health Care Education/Training Program
DX: R74.8 Abnormal levels of other serum enzymes (principal); E11.22 Type 2 diabetes mellitus with diabetic chronic kidney disease; I12.9 Hypertensive chronic kidney disease with stage 1 through stage 4 chronic kidney disease, or unspecified chronic kidney disease; Z18.32 Retained tooth; R01.1 Cardiac murmur, unspecified; E78.5 Hyperlipidemia, unspecified; Z79.4 Long term (current) use of insulin
CPT/HCPCS: 36415; 81001; 82436; 84133; 84300; 86704; 86706; 86709; 86803; 87086; 87088; 87186; 87340

== ENCOUNTER 2025-05-31 08:36 | Outpatient (AMB) | payer OTHER, SELFPAY ==
--- OUTSIDE RECORDS SUMMARY | 2024-04-07 04:30 | XMS_ITS ---
Author Organization [facility] [place] Address [address] [place] [address] Care Team Providers Care Clinical Services Manager Name Role Phone Mery, Kartik Primary Care Provider [phone] Brian Hutchins Unavailable [phone] Rosemary Brown Unavailable [phone] REASON FOR VISIT Seen Sooner Medications Medication [...] 04/07/2024 Encounters Encounter Location Date Provider Diagnosis [facility] [place] [address] [place] [address] 04/07/2024 Rosemary Brown Plan Of Treatment Next Appt Details Provider Name:Savi henry, 06/06/2025 10:00:00 AM, [address] [place], [address], Progress Notes * HITESH ElielDOB: [birth year] (65 yo M)Acc No.[id number]:04/07/2024 Progress Notes Patient: Betzaida VILLEGAS Edrory Provider: Betzaida Brown DPM :1960 A ge:64 Y S ex:Male Date:04/07/2024 Address:[address] [place] [address] Pcp:Angel Ordonez Subjective: * Chief Complaints: * [...] enies. C ardiovascular: Pacemaker d enies. M AUTO MECHANICS INSTRUCTOR d enies. W PW d enies. C [...] yes, occasional, walking. Marital status: . 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 * Medications: T aking Lantus , Taking [...] 0 04/07/2024 Generated for Nelia ayoub/Kendell/Jonn on: 0 05/31/2025 09:40 AM EDT
--- OUTSIDE RECORDS SUMMARY | 2024-06-22 05:15 | XMS_ITS ---
Author Organization [facility] [place] Address [address] [place] [address] Care Team Providers Care Cryptologic Technician Technical Name Role Phone Angel Ordonez Primary Care Provider Brian Hutchins [phone] Encounters Encounter Location Date Provider Diagnosis [address] [address] 06/22/2024 Brian Hutchins Plan Of Treatment Next Appt Details Provider Name:Savi henry, 06/06/2025 10:00:00 AM, [address] [place], [address], Progress Notes * Eliel DE LEÓNDOB: [birth year] (65 yo M)Acc No.[id number]:06/22/2024 Progress Note Patient: Betzaida ENRIQUEZKAM Eliel Provider: King Hutchins DPM :1960 A ge:64 Y S ex:Male Date:06/22/2024 Address: [address] [facility] [id number] Pcp:Angel Ordonez Subjective: * Chief Complaints: * [...] 1 Generated for Nelia ayoub/Kendell/Jonn on: 0 05/31/2025 09:40 AM EDT
--- NOTE | 2025-05-31 08:46 | MHC.PC.OV ---
Vital Signs 05/31/25 08:52 Height 5 ft 10 in Weight 330 lb BMI 47.3 BP 132/68 Blood Pressure Location Lt brachial Position Sitting Respiration 18 Pulse 87 Pulse Source Pulse Oximeter Temp 97.7 F Temp Source Temporal Artery Scan Pulse Oximetry (%) 98 Oxygen Delivery Method Room Air Intake Visit Reasons: per dr Kessler-echo referral Computer Applications Instructor Required: No Accompanied by: Self / Same As Patient Allergies No Known Allergies Allergy (Verified 05/31/25 08:46) Tobacco use date assessed: 03/28/25 Dental Screening Dental Screen Date: 03/28/25 HPI HPI Comments History of Present Illness Details The patient is a 65-year-old male presenting with concerns regarding kidney function and elevated liver enzymes. The patient reports a history of diabetes mellitus type 2 and hypertension. Specifically, the patient notes he has been informed of a decline in kidney function, currently at Stage 3B chronic kidney disease based on the estimated glomerular filtration rate (eGFR). This decline in kidney function has been suggested to be associated with the patient's history of diabetes and possibly hypertension. Over the past few months, the patient has reported increased frequency of urination with a strong odor. This history led to consideration for further evaluation of potential underlying kidney issues. Additionally, the patient has admitted to being on aspirin in the past for polyps, but medication adherence remained consistent throughout. The patient discussed he had previously ceased the use of statins due to unclear reasons, although known to have hyperlipidemia. Furthermore, elevated liver enzymes were noted in prior evaluations. Differential causes discussed included possible hepatitis or fatty liver disease, although no direct medication-related toxicity was implicated. The patient had been on Losartan, recognized for its renal protective effects, which he took for hypertension. The patient also recalls a history of a heart murmur, initially scheduled for ultrasound evaluation, which was previously denied by insurance and never completed. 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 Medications for diabetes management included Glargine, Lispro, and Metformin, although concerns pertaining to Metformin's impact on kidney function were highlighted. 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 - Suffers from back issues post-surgery and experiences associated drop foot - Gained weight over the years; lifestyle more sedentary now as a business intelligence consultant [facility] Medical History (Updated 05/31/25 @ 09:30 by Gutierrez Kessler MD) Murmur, cardiac CKD stage 3 due to type 2 diabetes mellitus Elevated liver enzymes Essential hypertension Diabetes mellitus Obesity (BMI 30-39.9) Surgical History History of ear, nose, and throat (ENT) surgery History of total right knee replacement Family History (Updated 03/28/25 @ 10:04 by Karen Wright MA) Mother No problems noted. Father No problems noted. 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 Sundar Luna, Peggy Kevin, Omkar Vega and colleagues, with an educational john from [employer]. Review of Systems Const Details: - Genitourinary: Reports increased urination with foul smell - Cardiovascular: Reports history of heart murmur - Respiratory: Denies any current issues, but uses inhalers seasonally - Gastrointestinal: Denies recent pain, but notes liver enzyme elevation concerns - Musculoskeletal: Reports previous back surgery and foot drop - General: Reports increased weight gain, but denies dizziness All systems reviewed & are unremarkable except as noted in HPI and below Physical exam (Primary Care) Vital Signs: Last Vital Signs Temp 97.7 F 05/31/25 08:52 Pulse 87 05/31/25 08:52 Resp 18 05/31/25 08:52 BP 132/68 05/31/25 08:52 Pulse Ox 98 05/31/25 08:52 Oxygen Delivery Method Room Air 05/31/25 08:52 BMI result Body Mass Index 47.3 Tobacco/Smoking Status: Tobacco use Status Tobacco use date assessed 03/28/25 05/31/25 08:49 Patient Tobacco Use Status Never used Tobacco 05/31/25 08:49 e-Cigarette/Vaping Use Never Used 05/31/25 08:49 Thrive Assessment: Date of Thrive Assessment Date Thrive assessed 03/28/25 05/31/25 08:49 Const Other: General: +Alert and oriented, Well nourished, No acute distress. Eye: Pupils are equal, round and reactive to light, Intact accommodation, Extraocular movements are intact, Normal conjunctiva, Vision unchanged. HENT: Normocephalic, Atraumatic, Tympanic membranes are clear, Normal hearing, Oral mucosa is moist, No pharyngeal erythema, Ear canals patent. Respiratory: Lungs CTA bilaterally, No wheeze, Respirations are non-labored. Cardiovascular: Regular rate, Regular rhythm, S1 auscultated, S2 auscultated, Murmur present, Good pulses equal in all extremities, Normal peripheral perfusion, No edema. Gastrointestinal: Soft, Non-tender, Non-distended, Normal bowel sounds, No organomegaly. Musculoskeletal: Normal range of motion, Normal strength, No tenderness, No swelling, No deformity, Normal gait. Integumentary: Warm, Dry, [place], Intact. Neurologic: Alert, Oriented, Normal sensory, Normal motor function, No focal defects, Cranial Nerves II-XII are grossly intact, Normal deep tendon reflexes. Psychiatric: Cooperative, Appropriate mood & affect, Normal judgment. Coding Level of Care Code Est Pt Level 4 (05027) Complex EM visit Add On G2211 Diagnoses Elevated liver enzymes R74.8 CKD stage 3 due to type 2 diabetes mellitus E11.22; N18.30 Type 2 diabetes mellitus with stage 3b chronic kidney disease, with long-term current use of insulin E11.22; N18.32; Z79.4 Diabetes mellitus type: type 2 Diabetes mellitus usp insulin use: with usp use Diabetes mellitus complication status: with kidney complications Diabetes mellitus complication detail: with chronic kidney disease Chronic kidney disease stage: stage 3 (moderate) Chronic kidney disease stage 3 subtype: stage 3b (GFR 30-44) Essential hypertension I10 Murmur, cardiac R01.1 Hyperlipidemia E78.5 Assessment & Plan Assessment & Plan (1) Elevated liver enzymes: Comment: Blood work demonstrated elevated liver enzymes with large elevation in ALT and AST. We will obtain hepatitis panel and ultrasound to rule out hepatitis and fatty liver. Patient currently on no such medication that can worsen liver functions Code(s): R74.8 - Abnormal levels of other serum enzymes Category: Medical (2) CKD stage 3 due to type 2 diabetes mellitus: Comment: - Chronic kidney disease stage 3B based on eGFR discussed. Considerations include contribution from diabetes and hypertension. Planning for further nephrology consultation and renal ultrasound, UA & lytes Code(s): E11.22 - Type 2 diabetes mellitus with diabetic chronic kidney disease; N18.30 - Chronic kidney disease, stage 3 unspecified Category: Medical (3) Diabetes mellitus: Comment: Current medications Glargine 50U QHS, Lispro 25U TIDAC, and Metformin & Ozempic noted (last A1c at 5.6). - Advices to hold Metformin due to kidney function concerns. - Continued outpatient follow up with endocrinology Code(s): E11.9 - Type 2 diabetes mellitus without complications Category: Medical Qualifiers: Diabetes mellitus type: type 2 Diabetes mellitus predatory animal exterminator insulin use: with usp use Diabetes mellitus complication status: with kidney complications Diabetes mellitus complication detail: with chronic kidney disease Chronic kidney disease stage: stage 3 (moderate) Chronic kidney disease stage 3 subtype: stage 3b (GFR 30-44) Qualified Code(s): E11.22 - Type 2 diabetes mellitus with diabetic chronic kidney disease; N18.32 - Chronic kidney disease, stage 3b; Z79.4 - rat exterminator (current) use of insulin (4) Essential hypertension: Comment: - Well-controlled on Losartan. Continued monitoring and lifestyle modifications discussed. Code(s): I10 - Essential (primary) hypertension Category: Medical (5) Murmur, cardiac: Comment: Audible murmur her along left sternal border. Patient does endorse that he does get short of breath on ambulation and does have some associated lower extremity swelling seen on exam. Given these findings we will obtain an echo. Previous echo ordered was not completed. Code(s): R01.1 - Cardiac murmur, unspecified Category: Medical (6) Hyperlipidemia: Code(s): E78.5 - Hyperlipidemia, unspecified Plan: - Considering reinitiating statins if liver profile allows. Continuing monitoring lipid levels and addressing cardiovascular risk. Plan I reviewed the concerns associated with the patient's chronic kidney disease, highlighting the influence of diabetes and hypertension. For diabetes, I emphasized the importance of effective management and frequent endocrinology consultations. Elevated liver enzymes warranted the evaluation with a proposed liver ultrasound considering potential etiologies, such as hepatitis and fatty liver disease. I addressed hyperlipidemia, recognizing the past statin discontinuation and discussing its cardiovascular risk implications. For each concern, I outlined the importance of observance and regular follow-up to optimize health outcomes. I reassured the patient about the ultrasound and echocardiogram plans due to the heart murmur and previous insurance issues. Orders: Orders UA CC w/rflx Micro + Cult Today E11.22 - Type 2 diabetes mellitus with diabetic chronic kidney disease, N18.30 - Chronic kidney disease, stage 3 unspecified US abdomen complete Today E11.22 - Type 2 diabetes mellitus with diabetic chronic kidney disease, N18.30 - Chronic kidney disease, stage 3 unspecified, R74.8 - Abnormal levels of other serum enzymes Hepatitis A,B,C Profile Today R74.8 - Abnormal levels of other serum enzymes Electrolytes Urine Today E11.22 - Type 2 diabetes mellitus with diabetic chronic kidney disease, N18.30 - Chronic kidney disease, stage 3 unspecified CA echo transthoracic complete Today R01.1 - Cardiac murmur, unspecified Referrals Nephrology Referral E11.22 - Type 2 diabetes mellitus with diabetic chronic kidney disease, N18.30 - Chronic kidney disease, stage 3 unspecified Patient Instructions: - Hold Metformin until your next blood work to protect your kidneys. - Schedule and attend the renal and liver ultrasounds as discussed. - Follow up with an studio receptionist regarding diabetes treatment. - Maintain regular blood pressure checks and continue taking Losartan. - Discuss restarting a statin with your healthcare provider. - Increase water intake but be mindful of when you can have access on the bus. - Monitor any changes in your symptoms, especially with voiding, and report them. - Follow up in three months for reassessment.
[2025-05-31 08:52] VITALS: BP 132/68; PULSE 87; RESP 18; TEMP 36.5; O2SAT 98; BMI 47.3
--- OUTSIDE RECORDS SUMMARY | 2025-05-31 09:40 | XMS_ITS | Clinical Summary ---
Author Organization [facility] Address [address] [facility] [address] [place] [phone] Phone Care Team Providers Care Locomotive Operator Helper Name Role Phone Angel Ordonez MD Primary Care Provid er Allergies Active Allergy Reactions Criticality Noted Date Comments Nsaids (Non-Steroidal Anti-Inflammatory Drug) Bronchospasm,Wheezing 12/11/2011 Medications albuterol 90 mcg/actuation inhaler Inhale 2 puffs into the lungs every 6 (six) hours as needed. 03/14/20 23 Active ADVAIR DISKUS 500-50 mcg/dose DISKUS Inhale 500 mcg/actuation of fluticasone into the lungs 2 (two) times a day. Uses during Winter months 03/15/20 23 Active DEXCOM G7 MERCHANDISING COORDINATOR Misc by Miscellaneous route as needed. 1 each 03/20/20 23 Active KnownUCH ULTRA TEST Strp stripsIndication s:Type 2 diabetes mellitus with diabetic peripheral angiopathy without gangrene, with long-term current use of insulin Used to test glucose 7 times daily 700 strip 3 08/12/20 23 Active fluticasone propionate (FLONASE) 50 mcg/actuation nasal spray 1 spray by Nasal route daily. 12/16/19 24 Active aspirin 325 MG tablet Take 325 mg by mouth 2 (two) times a day. 02/20/20 24 Active valsartan (DIOVAN) 160 MG tablet Take 1 tablet by mouth every morning. 12/31/19 24 Active metFORMIN (GLUCOPHAGE) 500 MG tabletIndication s:Type 2 diabetes mellitus with peripheral neuropathy Take 1 tablet (500 mg total) by mouth 2 (two) times a day with meals. 180 tablet 2 11/01/19 25 Active LANTUS U-100 INSULIN 100 unit/mL injection vialIndications: Type 2 diabetes mellitus with peripheral neuropathy Inject 50 Units under the skin nightly at bedtime. 50 mL 3 11/01/19 25 Active NOVOLOG U-100 INSULIN ASPART 100 unit/mL injection vialIndications: Type 2 diabetes mellitus with peripheral neuropathy Inject 35 Units under the skin 3 (three) times a day before meals. 100 mL 3 03/17/20 25 Active DEXCOM G7 SENSOR DeviIndications: Type 2 diabetes mellitus with peripheral neuropathy CHANGE EVERY 10 DAYS DIRECTED. 9 each 3 03/28/20 25 Active OZEMPIC 2 mg/dose (8 mg/3 mL) subcutaneous injection penIndications:T ype 2 diabetes mellitus with peripheral neuropathy INJECT 2 MG SUBCUTANEOUSLY EVERY 7 DAYS 3 mL 5 04/25/20 25 Active Active Problems Problem Noted Date Diagnosed Date [...] [facility] glucose [facility]. [facility] will get a copy Assessment & Plan [...] his glucose levels. Up to date with [facility]. Primary hypertension 11/01/2021 Assessment & Plan [...] mellitus type 2, Dx 2004. Weight cycling. 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 History of weight cycling. He is followed by [facility] weight management and thinking about getting the gastric sleeve procedure. He started a 1600-calorie diet about 6 weeks ago and reports a 27 pound weight loss so far. He is interested in adding Ozempic to his diabetes regimen to facilitate weight loss. 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 Encouraged to continue to make healthy [...] CGM and lifestyle modifications following with a pot operator. Reports he had 6.5% not long ago [...] Care Team Description 04/26/2025 Telephone [facility] [address] [place] [address] Colleen Velarde MD Lab Orders Faxed ; Results 04/22/2025 Refill [facility] [place] [address] [place] [address] Shannon Alejandro PA-C Medication Refill 04/11/2025 2:40 PM EDT Office Visit [facility] [address] [place] [address] Colleen Velarde MD Type 2 diabetes mellitus with hypoglycemia without coma, with long-term current use of insulin (Primary Dx); Type 2 diabetes mellitus with peripheral neuropathy 03/27/2025 Refill [facility] [address] [place] [address] [place] [address] Shannon Alejandro PA-C Medication Refill 03/17/2025 Refill [facility] [address] [place] [address] Colleen Velarde MD Medication Refill from Last [...] 8:20 AM EST Office Visit [facility] [address] [place] [address] [place] [address] Colleen Velarde MD [address] [address] Health Maintenance Due Date Last Done Comments [...] 01/10/2024 01/09/2023, 12/04/2011 LIPID PANEL 01/10/2024 01/09/2023, 2 , 01/09/2023, Additional history exists POTASSIUM LEVEL 01/10/2024 01/09/2023, 12/04/2011 HEMOGLOBIN A1C 06/04/2024 12/03/2023, 2 , 08/06/2022, Additional history exists INFLUENZA VACCINE (#1) 2025 , 05/12/2020, 06/15/2017, Additional history exists COVID-19 VACCINE ( - 2024- season) 2025 08/05/2021 BLOOD PRESSURE 10/12/2025 04/11/2025 HEPATITIS C SCREENING [...] (12/03/2023) Hemoglobin A1c - External 5.8 % [facility] Provider MD LAB BLOOD ORDERABLES Adeola l Result * Outside Potassium Level (01/09/2023) Potassium level - External 5 3.4 - 5.0 mmol/L Result [facility] Provider MD LAB BLOOD ORDERABLES Adeola l Result * (ABNORMAL) Outside Serum Creatinine Level (01/09/2023) Creatinine, serum - External 1.67(A) 0.8 - 1.3 mg/dL Result [facility] MD LAB BLOOD ORDERABLES Adeola l Result * (ABNORMAL) Outside HDL (01/09/2023) HDL - External 30(A) 40 - 80 mg/dL Result [facility] Provider MD LAB BLOOD ORDERABLES Adeola l Result * Outside Hepatitis C Virus Screening (03/19/2013) Hepatitis C Screening - External Neg Result [facility] Provider MD LAB BLOOD ORDERABLES Adeola l Result from Last 3 Months or Most Recently Relevant to Health Maintenance Insurance [facility] [place] [address] [facility]UN[facility] CHOICE [facility] [place] [address] [facility] [place] [address] [facility] CHOICE [facility] COMMUNITY CHOICE [place] [address] Care Teams Locomotive Operator Helper Relationship Specialty Start Date End Date Angel Ordonez MD [address] [place] [id number] PCP - General Internal Medicine 04/11/25 Additional Source Comments The information contained in this document represents components of the legal health record. It is not the complete legal health record.[facility]
--- OUTSIDE RECORDS SUMMARY | 2025-05-31 09:40 | XMS_ITS | Encounter Summary ---
Author Organization [facility] Address [address] [facility] [address] [place] [address] Phone Care Team Providers Care Chemical Recovery Operator Name Role Phone Angel Ordonez MD Primary Care Provid er Reason for Visit * Reason Onset Date Comments Lab Orders Faxed 04/26/2025 Results 04/26/2025 Encounter Details Date Type Department Care Team (Late st Contact Info) Description 04/26/2025 Telephone [facility] [address] [place] [address] Colleen Velarde MD [address] [place] [address] [email or web address] Lab Orders Faxed ; Results Social History Tobacco Use Types Packs/Day Years Used Date Smoking Tobacco: Never Passive Smoke Exposure: Never Smokeless Tobacco: Never Alcohol Use Standard Drinks/Week Comments Not Currently [...] on file Sexual Orientation Not on file documented as of this encounter Progress Notes * Barby Azul - 05/30/2025 1:03 PM EDT Patient would like the lab results, please call [phone] * Barby Azul - 04/26/2025 1:01 PM EDT Patient requests lab orders (04/11/25) be faxed to [facility] / [place] location Printed and Faxed [phone] documented in this encounter Plan of Treatment Upcoming Encounters Date Type Department Care Team (Late st Contact Info) Description 11/14/2025 8:20 AM EST Office Visit [facility] [address] [place] [address] Colleen Velarde MD [address] [place] [address] [email or web address] documented as of this encounter Visit Diagnoses Not on filedocumented in this encounter Care Teams Chemical Recovery Operator Relationship Specialty Start Date End Date Angel Ordonez MD [address] [place] [address] PCP - General Internal Medicine 04/11/25 documented as of this encounter Additional Source Comments The information contained in this document represents components of the legal health record. It is not the complete legal health record.[facility]
--- OUTSIDE RECORDS SUMMARY | 2025-05-31 09:40 | XMS_ITS | Patient Health Record ---
Author Organization [facility] Address [address] [facility] [place] [address] Care Team Providers Care Order Caller Name Role Phone MeryAngel Primary Care Provider Brian Hutchins Unavailable [phone] Savi Cantu Unavailable [phone] Allergies No Known Allergies Reason For Referral [...] Problem Acquired hammer toe of right foot (2353189807732607 ) Other hammer toe(s) (acquired), right foot (M20.41) Active confirmed Problem Acquired hammer toe of left foot (8989029140543731 ) Other hammer toe(s) (acquired), left foot (M20.42) Active confirmed Problem Polyneuropathy due to type 2 diabetes mellitus (871666715) Type 2 diabetes mellitus with diabetic polyneuropathy (E11.42) Active confirmed Vital Signs Blood pressure diastolic 65 mm Hg 02/17/2025 Height 5 ft 10 in in 02/17/2025 Blood pressure systolic 130 mm Hg 02/17/2025 Weight 290 lbs 02/17/2025 BMI 41.61 kg/m2 02/17/2025 Encounters Encounter Location Date Provider Diagnosis [facility] [address] [address] 02/17/2025 Savi Cantu Other hammer toe(s) (acquired), right foot M20.41 [...] Treatment Pending Test Test Name Order Date 65580-WEUHESA NAIL, 6 OR MORE 03/29/2024 02392-JNCB SKIN LESIONS, 2 TO 4 03/29/20 24 Next Appt Details Provider Name:Savi henry, 06/06/2025 10:00:00 AM, [address] [place], [address], Insurance Providers Payer Name Payer Address Payer Phone Subscriber Number Group Number Insured Name Patient Relationship to Insured Coverage Start Date Coverage End Date [facility] ([facility] [address] [place], [place] [id number] Tay Self - patient is the insured Medical (General) History Medical History History ICD Code Neuropathy type II diabetes High blood pressure Lung disease asthma Surgical History Surgery Date(Month/Year) back surgery 08/2014 3 sinus surgery 2012 foot sx Blister 11/2018
== END 2025-05-31 09:31 | disposition home or self-care (01) ==
LOC: HO.HMCHD 08:37
PROVIDERS: PCP Student in an Organized Health Care Education/Training Program; Visit Provider Student in an Organized Health Care Education/Training Program
DX: I12.9 Hypertensive chronic kidney disease with stage 1 through stage 4 chronic kidney disease, or unspecified chronic kidney disease (principal); E11.22 Type 2 diabetes mellitus with diabetic chronic kidney disease; N18.32 Chronic kidney disease, stage 3b; Z79.4 Long term (current) use of insulin; R74.8 Abnormal levels of other serum enzymes; R01.1 Cardiac murmur, unspecified; E78.5 Hyperlipidemia, unspecified

== ENCOUNTER 2025-06-16 09:28 | Outpatient (AMB) | payer OTHER, SELFPAY ==
[2025-06-16 09:51] VITALS: BP 142/70; PULSE 108; O2SAT 96; BMI 48.1
--- NOTE | 2025-06-16 09:51 | HO.NEPHOV_ITS ---
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 Accompanied by: Self / Same As Patient Allergies No Known Allergies Allergy (Verified 06/16/25 09:52) Medication List - Last Reconciled 06/16/25 by Derrick Corona MD albuterol sulfate 90 mcg/actuation 2 inhalations inhalation BID blood sugar diagnostic (OneTouch Ultra Test strips) check blood sugar three times daily blood sugar diagnostic (OneTouch Ultra Test strips) As directed- To test sugar 7 x daily blood-glucose sensor (DexS5 Tech G7 Sensor device) test blood sugar three times daily fluticasone propion-salmeterol 500-50 mcg/dose (Wixela Inhub) 2 inhalations inhalation BID insulin aspart U-100 (Novolog U-100 Insulin aspart) 25 units subcut TID insulin glargine (Lantus U-100 Insulin) 50 units subcut BEDTIME losartan 100 mg PO DAILY semaglutide (Ozempic) mg subcut QWEEK HPI Comments Details: - The patient is a 65-year-old male presenting with chronic kidney disease. - Chronic Kidney Disease: Kidney function decreased to 42 mL/min, previously s table in the 50s. - Diabetes Mellitus: 10-12 year history, A1c in the 5 range. - Hypertension: Managed with Losartan 100 mg daily. - Urinary Tract Infection: Treated with Nitrofurantoin. - Drop Foot: Result of back surgery 10 years ago. - Elevated Liver Enzymes: Abdominal ultrasound planned. Physical Exam General: Awake. Comfortable. HENT: Neck supple. Mucosa moist. Pulmonary: Lungs aeration equal. No rales. Cardiology: Heart S1-S2 heard. No gallop. Abdomen: Soft. Non tender. Bowel sounds normal. Neurologic: No involuntary movements. No myoclonus. Drop foot noted, likely due to previous back surgery. Extremities: No edema. No rash. Uses cane for ambulation due to drop foot. [facility] Medical History (Updated 06/16/25 @ 12:34 by Derrick Corona MD) Murmur, cardiac CKD stage 3 due to type 2 diabetes mellitus Elevated liver enzymes Essential hypertension Diabetes mellitus Obesity (BMI 30-39.9) Surgical History History of ear, nose, and throat (ENT) surgery History of total right knee replacement Family History Mother No problems noted. Father No problems noted. 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 Cognitive needs: Yes (Cane) Hearing needs: No Vision needs: Yes (Glasses) Physical Exam Vital Signs: Last Vital Signs Pulse 108 H 06/16/25 09:51 BP 120/70 06/16/25 10:09 Pulse Ox 96 06/16/25 09:51 Oxygen Delivery Method Room Air 06/16/25 09:51 BMI result Body Mass Index 48.1 Results Reviewed Nephrology Results: Hgb, (14.0-18.0) 14.7 g/dl 05/24/25 WBC, (4.8-10.8) 8.8 X10*3/uL 05/24/25 Plt Count, (160-400) 246 X10*3/uL 05/24/25 Sodium, (135-145) 140 mmol/L 05/24/25 Potassium, (3.3-5.1) 4.4 mmol/L 05/24/25 Chloride, (96-108) 108 mmol/L 05/24/25 Carbon Dioxide, (22-29) 21 mmol/L L 05/24/25 BUN, (9-16) 24 mg/dL H 05/24/25 Creatinine, (0.5-1.4) 1.65 mg/dL H 05/24/25 Calcium, (8.4-10.2) 9.8 mg/dL 05/24/25 Urine Protein, (Neg-Trace) Negative mg/dL 05/31/25 Urine Creatinine 130.39 mg/dL 05/24/25 Assessment & Plan Assessment & Plan (1) CKD stage 3 due to type 2 diabetes mellitus: Comment: - Chronic kidney disease stage 3B based on eGFR Code(s): E11.22 - Type 2 diabetes mellitus with diabetic chronic kidney disease; N18.30 - Chronic kidney disease, stage 3 unspecified Category: Medical Plan 1. Chronic Kidney Disease in the setting of longstanding diabetes mellitus and obesity. Renal function has been relatively stable for the last 3 years. Recent decline in EGFR may be due to hypoperfusion. Recent urinalysis was benign and therefore glomerular nephritis or interstitial disease seem unlikely. Obstruction needs to be ruled out. Ultrasonogram has already been ordered - Monitor kidney function with follow-up blood tests in 4-6 weeks. - Consider adjusting Losartan dosage after reviewing test results. 2. Diabetes Mellitus - Continue current diabetes management with insulin, monitor A1c levels. 3. Hypertension - Continue Losartan 100 mg daily, monitor blood pressure regularly. We will benefit from weight loss 4. Urinary Tract Infection - Completed course of Nitrofurantoin, monitor for recurrence of symptoms. 5. Elevated Liver Enzymes - Abdominal ultrasound scheduled to assess liver condition. We will returned to the office once the baseline workup is completed Further management will be based on the outcome of the baseline investigations Orders: Orders Electrolytes 4 Weeks E11.22 - Type 2 diabetes mellitus with diabetic chronic kidney disease, N18.30 - Chronic kidney disease, stage 3 unspecified Creatinine 4 Weeks E11.22 - Type 2 diabetes mellitus with diabetic chronic kidney disease, N18.30 - Chronic kidney disease, stage 3 unspecified Blood Urea Nitrogen 4 Weeks E11.22 - Type 2 diabetes mellitus with diabetic chronic kidney disease, N18.30 - Chronic kidney disease, stage 3 unspecified Coding Level of Care Code New Pt Level 4 (03835) Diagnoses CKD stage 3 due to type 2 diabetes mellitus E11.22; N18.30
[2025-06-16 10:09] VITALS: BP 120/70
== END 2025-06-16 10:16 | disposition home or self-care (01) ==
LOC: HO.HKA 09:29
PROVIDERS: PCP Student in an Organized Health Care Education/Training Program; Referring Provider Student in an Organized Health Care Education/Training Program; Visit Provider Internal Medicine Hypertension Specialist
DX: E11.22 Type 2 diabetes mellitus with diabetic chronic kidney disease (principal); N18.30 Chronic kidney disease, stage 3 unspecified
CPT/HCPCS: 99204

== ENCOUNTER 2025-07-18 08:59 | Outpatient (REF) | payer OTHER, SELFPAY ==
--- OUTSIDE RECORDS SUMMARY | 2024-06-22 05:15 | XMS_ITS ---
Author Organization [facility] Address [address] [place] [address] Care Team Providers Care Manager Case Management Name Role Phone Angel Ordonez Primary Care Provider Savi Cantu Unavailable [phone] Brian Hutchins Unavailable [phone] Encounters Encounter Location Date Provider Diagnosis [facility] [address] [place] [address] 06/22/2024 Brian Hutchins Plan Of Treatment No Information Progress Notes * Eliel PROCTORDOB: [birth year] (65 yo M)Acc No.[id number]:06/22/2024 Progress Note Patient: Eliel BLANCAS Provider: King Hutchins DPM :1960 A ge:64 Y S ex:Male Date:06/22/2024 Address:[address] [place] [address] [id number] Pcp:Angel Ordonez Subjective: * Chief Complaints: * [...] DPM Date: Generated for Nelia ayoub/Kendell/Dannyransmitting on: 09:45 AM EDT
--- OUTSIDE RECORDS SUMMARY | 2025-07-18 09:45 | XMS_ITS | Patient Health Record ---
Author Organization [facility] benjamin Sergei Address [address] [facility] [place] [address] Care Team Providers Care Fleet Service Manager Name Role Phone MeryAngel Primary Care Provider [phone] Savi Cantu Unavailable [phone] Brian Hutchins Unavailable [phone] Allergies No Known Allergies Results Component Value Reference Range Notes HEMOGLOBIN A1C (GLYCOHEMOGLO BIN) Reviewed date:06/06/2025 08:33:51 AM Interpretation: Performing Lab: Notes/Report: HEMOGLOBIN A1C % (HH) 5.5 Reason For Referral No Information Medications Medication SIG (Take, Route, Frequency, Duration) Notes Start Date End Date Status Simvastatin Unknown AFO-fixed . 1 . Wear daily; Duration: . 09/13/2020 Unknown Extra Depth Orthopedic Shoes (1 Pair) with Customized Heat Molded Multidensity Innersoles (3 Pair) as directed Dx: NIDDM/Polyneuropathy (E11.42), Hammertoe Foot Deformity (M20.41,M20.42), Preulcerative Skin Lesion(s) (L85.1 09/13/2020 Unknown Losartan Potassium A ctive Lantus Active Insulin Active glipiZIDE 10 MG 1 tablet 30 minutes before breakfast Orally Twice a day Not-Taking AFO-fixed . 1 . Wear daily; Duration: . Active metFORMIN HCl 1000 MG 1 tablet with a me al Orally Twice a day Not-Taking Lisinopril 30 MG 1 tablet Orally Once a day Unknown Extra Depth Orthopedic Shoes (1 Pair) with Customized Heat Molded Multidensity Innersoles (3 Pair) as directed Dx: NIDDM/Polyneuropathy (E11.42), Hammertoe Foot Deformity (M20.41,M20.42), Preulcerative Skin Lesion(s) (L85.1 02/17/2025 Active Immunizations Vaccine Route Administration Date Status Comme nts Influenza Unknown 09/13/2020 Administered Influenza Unknown 05/23/2024 Administered Social History Tobacco Use: Social History [...] Problem Acquired hammer toe of right foot (4753722675161100 ) Other hammer toe(s) (acquired), right foot (M20.41) Active confirmed Problem Acquired hammer toe of left foot (9616851209185955 ) Other hammer toe(s) (acquired), left foot (M20.42) Active confirmed Problem Polyneuropathy due to type 2 diabetes mellitus (370515260) Type 2 diabetes mellitus with diabetic polyneuropathy (E11.42) Active confirmed Vital Signs Blood pressure diastolic 65 mm Hg 06/06/2025 Height 5js17mo in 06/06/2025 Blood pressure systolic 130 mm Hg 06/06/2025 Weight 328 lbs 06/06/2025 BMI 47.06 kg/m2 06/06/2025 Procedures Procedure Date Ordered Date Performed Result Body Sit e 05708-VAYOCTA NAIL, 6 OR MORE 06/06/2025 N/A 21887-MKVB SKIN LESIONS, 2 TO 4 06/06/2025 N/A Encounters Encounter Location Date [facility] [address] [address] 02/17/2025 Savi Cantu Other hammer toe(s) (acquired), right foot M20.41 ; Other hammer toe(s) (acquired), left foot M20.42 ; Type 2 diabetes mellitus with diabetic polyneuropathy E11.42 and Tinea unguium B35.[address] [facility] [address] [place] [address] 06/06/2025 Savi Cantu Type 2 diabetes mellitus with diabetic polyneuropathy E11.42 ; Tinea unguium B35.1 and Left foot drop M21.372 [facility] [place] [address] [facility] [address] [place] [address] 06/27/[address] [facility] [address] [place] [address] 07/01/2025 Brian Hutchins Assessments Encounter Date Diagnosis (ICD Code) Assessment Notes Treatment Notes Treatment Clinical Notes Section Notes 02/17/2025 Other hammer toe(s) (acquired), right foot (ICD-10 - M20.41) Patient Educated with: DIABETIC FOOT CARE INSTRUCTIONS. pdf (DIABETIC FOOT CARE INSTRUCTIONS. pdf) 06/06/2025 Type 2 diabetes mellitus with diabetic polyneuropathy (ICD-10 - E11.42) 06/06/2025 Tinea unguium (ICD-10 - B35.1) 06/06/2025 Left foot drop (ICD-10 - M21.372) 02/17/2025 Other hammer toe(s) (acquired), left foot (ICD-10 - M20.42) 02/17/2025 Type 2 diabetes mellitus with diabetic polyneuropathy (ICD-10 - E11.42) 02/17/2025 Tinea unguium (ICD-10 - B35.1) Plan Of Treatment Pending Test Test Name Order Date 95814-BKMETHA NAIL, 6 OR MORE 03/29/2024 58050-ZTLJUFT NAIL, 6 OR MORE 06/06/2025 31037-GHGY SKIN LESIONS, 2 TO 4 06/06/20 25 53315-RDTC SKIN LESIONS, 2 TO 4 03/29/20 24 Insurance Providers Payer Name Payer Address Payer Phone Subscriber Number Group Number Insured Name Patient Relationship to Insured Coverage Start Date Coverage End Date [facility]) [address] [place] [id number] [phone] [id number] El[address] Tay Self - patient is the insured Medical (General) History Medical History History ICD Code Neuropathy type II diabetes High blood pressure Lung disease asthma Surgical History Surgery Date(Month/Year) back surgery 08/2014 3 sinus surgery 2013 foot sx Blister 11/2018
--- OUTSIDE RECORDS SUMMARY | 2025-07-18 09:46 | XMS_ITS | Clinical Summary ---
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 1 each 03/20/20 23 Active Re-[employer] TechnologiesUCH ULTRA TEST Strp stripsIndication s:Type 2 diabetes [...] her glucose levels. [facility] will get a copy Assessment [...] his glucose levels. Up to date with [facility]. Primary hypertension 11/01/2021 Assessment & Plan (11/01/2024 [...] mellitus type 2, Dx 2004. Weight cycling. 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 History of weight cycling. 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 Encouraged to continue to make healthy [...] CGM and lifestyle modifications following with a school clerk. Reports he had 6.5% not long ago [...] Team Description 04/26/2025 Telephone [facility] [address] [place] [address] Colleen Velarde MD Lab Orders Faxed ; Results 04/22/2025 Refill [facility] [place] [address] [facility] [place] [phone] Shannon Alejandro PA-C Medication Refill from Last 3 Months Immunizations [...] 8:20 AM EST Office Visit [facility] [address] [place] [address] Colleen Velarde MD [address] [place] [address] [email or web address] Health Maintenance Due Date Last Done Comments DEPRESSION SCREENING 1973 HIV ONE-TIME SCREENING (18-65 YEARS) 1979 COLOGUARD 2006 COLONOSCOPY 2006 COLORECTAL CANCER SCREENING 2006 FIT TEST 2006 FOBT 2006 09/23/2002 SIGMOIDOSCOPY 2006 VIRTUAL COLONOSCOPY 2006 RSV VACCINE (1 - Risk 50-74 years 1-dose series) 2011 DIABETIC EYE EXAM 11/12/2014 02/22/1998, , 09/16/1996, Additional history exists Adult Td,Tdap Booster 07/25/2020 07/25/2010, 993 PNEUMOCOCCAL VACCINES (50+ years) (2 of 2 - PCV) 05/22/2021 05/22/2020 CREATININE LEVEL 01/10/2024 01/09/2023, 12/04/2011 LIPID PANEL 01/10/2024 01/09/2023, 12/22, 01/09/2023, Additional history exists POTASSIUM LEVEL 01/10/2024 01/09/2023, 12/04/2011 HEMOGLOBIN A1C 06/04/2024 12/03/2023, 12/22, 08/06/2022, Additional history exists INFLUENZA VACCINE (#1) 2025 , 05/12/2020, 06/15/2017, Additional history exists COVID-19 VACCINE ( season) 2025 08/05/2021 BLOOD PRESSURE 10/12/2025 04/11/2025 [...] (12/03/2023) Hemoglobin A1c - External 5.8 % us Historical Provider LAB BLOOD ORDERABLES Adeola l Result * Outside Potassium Level (01/09/2023) Potassium level - External 5 3.4 - 5.0 mmol/L Historical Provider MD LAB BLOOD ORDERABLES Adeola l Result * (ABNORMAL) Outside Serum Creatinine Level (01/09/2023) [facility] Creatinine, serum - External 1.67(A) 0.8 - 1.3 mg/dL Result [facility] Provider MD LAB BLOOD ORDERABLES Adeola l Result * (ABNORMAL) Outside HDL (01/09/2023) [facility] HDL - External 30(A) 40 - 80 mg/dL Result [facility] Provider MD LAB BLOOD ORDERABLES Adeola l Result * Outside Hepatitis C Virus Screening (03/19/2013) [facility] Hepatitis C Screening - External Neg Result [facility] Provider MD LAB BLOOD ORDERABLES Adeola l Result from Last 3 Months or Most Recently Relevant to Health Maintenance Insurance [employer] [place] [id number] [facility] [place] [facility] [place] [place] [id number] [facility]ICE [facility] CHOICE [facility] CHOICE Care Teams Rn Admit Relationship Specialty Start Date End Date Angel Ordonez MD [address] [place] [phone] PCP - General Internal Medicine 04/11/25 Additional Source Comments The information contained in this document represents components of the legal health record. It is not the complete legal health record.[facility]
[2025-07-18 10:53] LABS: Appearance Urine Clear; Glucose Urine UA Negative (Negative); PH 5.5 (5.0-9.0); Specific Gravity - Urine 1.015 (1.005-1.025); UMIC TRIGGER UACC YES
[2025-07-18 10:54] LABS: Anion Gap 12 (12-20); Blood Urea Nitrogen 17 mg/dL (9-16); Carbon Dioxide 21 mmol/L (22-29); Chloride 110 mmol/L (96-108); Estimated Glomerular Filt Rate 48; Potassium 4.4 mmol/L (3.3-5.1); Sodium 139 mmol/L (135-145)
[2025-07-18 11:00] LABS: UACC Culture Trigger YES
== END 2025-07-18 09:00 | disposition home or self-care (01) ==
LOC: HO.HMGCLDS 08:59
PROVIDERS: PCP Student in an Organized Health Care Education/Training Program; Visit Provider Internal Medicine Hypertension Specialist
DX: E11.22 Type 2 diabetes mellitus with diabetic chronic kidney disease (principal); N18.30 Chronic kidney disease, stage 3 unspecified
CPT/HCPCS: 36415; 80051; 81001; 82565; 84520; 87086

== ENCOUNTER 2025-07-26 09:21 | Outpatient (AMB) | payer OTHER, SELFPAY ==
--- OUTSIDE RECORDS SUMMARY | 2024-04-07 03:30 | XMS_ITS ---
Author Organization [facility] [place] Address [address] [facility] [place] [address] Care Team Providers Care Employment Clerk Name Role Phone Mery, Kartik Primary Care Provider [phone] Savi Cantu Unavailable [phone] Rosemary Brown Unavailable [phone] REASON FOR VISIT Seen Sooner Medications Medication SIG (Take, Route, Frequency, Duration) Notes Start Date End Date Status Extra Depth Orthopedic Shoes (1 Pair) with Customized Heat Molded Multidensity Innersoles (3 Pair) as directed Dx: NIDDM/Polyneuropathy (E11.42), Hammertoe Foot Deformity (M20.41,M20.42), Preulcerative Skin Lesion(s) (L85.1 09/13/2020 Unknown Simvastatin Unknown metFORMIN HCl 1000 MG 1 tablet with a me al Orally Twice a day Active Lisinopril 30 MG 1 tablet Orally Once a day Unknown AFO-fixed . 1 . Wear daily; Dura tion: . 09/13/2020 Unknown Insulin Active glipiZIDE 10 MG 1 tablet 30 minutes before breakfast Orally Twice a day Active Losartan Potassium A ctive Lantus Active Social History Tobacco Use: Social History Observation Description Date Details (start date - stop date) Never Smoker NA - NA Tobacco Use/Smoking Question Answer Notes Are you a: nonsmoker Additional Findings: Tobacco Non-User Current no n-smoker Alcohol Screen Question Answer Notes Did you have a drink containing alcohol in the p ast year? No Points 0 Interpretation Negative Tobacco use other than smoking: Question Answer Notes Are you an other tobacco user? No Vital Signs Height 5 ft 10 in in 04/07/2024 Weight 295 lbs lbs 04/07/2024 BMI 42.32 kg/m2 04/07/2024 Encounters Encounter Location Date Provider Diagnosis [facility] [place] [address] [facility] [place] [address] 04/07/2024 Rosemary Brown Plan Of Treatment No Information Progress Notes * Eliel DE LEÓNDOB: [birth year] (65 yo M)Acc No.[id number]:04/07/2024 Progress Notes Patient: Eliel BLANCAS Provider: Betzaida Brown DPM :1960 A ge:64 Y S ex:Male Date:04/07/2024 Address:[address] [place] [address] [place] Pcp:Angel Ordonez Subjective: * Chief Complaints: * 1 . Seen Sooner. * ROS: G eneral/Constitutional: Nausea d enies. V omiting d enies. H arnold Thirst d enies. L oss appetite d enies. C hills d enies. F atigue d enies.?Fever d enies. N ight Sweats d enies. U nexplained weight loss d enies. U nexplained weight gain d enies. H EENTM: Dentures d enies. D izziness d enies. G lasses/contacts d enies. R etinopathy d enies. B lurred/double vision d enies. T MJ?denies. D ischarge/drainage d enies. I mplants d enies. S ore throat d enies. D ental implants d enies. H shalonda of hearing d enies. D ifficulty chewing/swallowing/speaking d enies. N ose bleeds d enies. S ore mouth d enies. ? R espiratory: On Oxygen d enies. P neumonia/pleurisy d enies.?Bronchitis d enies. E mphysema d enies. C oughing d enies. C ough blood?denies. S hortness of breath d enies. W heezing d enies. C ardiovascular: Pacemaker d enies. M MANHOLE BUILDER d enies. W PW d enies. C HF d enies. H eart attack d enies. S eptal defect d enies. R apid beat d enies. C hest pain d enies. A trial Fib. d enies. M urmur/Palpitations d enies. G astrointestinal: Hemorrhoids d enies. S tomach/Abdominal pain d enies. D ark blood stool d enies. I rritable bowel d enies. C onstipation d enies. D iarrhea d enies. H ematology: Swelling d enies. C lots d enies. V aricose Veins d enies. B ruising d enies. B leeding problem d enies. G enitourinary: Blood urine d enies. F requent/Painfu/urination/bladder control d enies. K idney stones d enies. I nfection (UTI) d enies. N ephropathy d enies. s ex trans dis (STD) d enies. P rostate d enies. M usculoskeletal: Hammertoes d enies. B unions d enies. B ack Pain d enies. M uscle Cramps/ Resting d enies. M uscle cramps / walking d enies.?Generalized aches and pains d enies. W eakness d enies. I nteg.: Watson d enies. S cars d enies. C orns/calluses?denies. I ngrown nails d enies. P ainful nails d enies. O pen Sores d enies. R ashes d enies. N eurologic: Difficulty sleeping d enies. B rain disorder d enies. N umbness d enies. B alance trouble d enies. C onfusion d enies. F ainting/blackouts d enies. T ingling d enies. T remors d enies. * Medical History: N europathy, type II diabetes, High blood pressure, Lung disease, Asthma. * Surgical History: b ack surgery 08/2014, 3 sinus surgery 2012, foot sx Blister 11/2018. * Family History: M other: , heart attack, foot problems, diagnosed with Diabetic - NIDDM. F ather: , heart attack, foot problems, diagnosed with Diabetic - NIDDM. * Social History: T obacco Use: T obacco Use/Smoking A re you a: n onsmoker A dditional Findings: Tobacco Non-User C urrent non-smoker Tobacco use other than smoking A re you an other tobacco user? N o D rugs/Alcohol: D rugs H ave you used drugs other than those for medical reasons in the past 12 months? N o Alcohol Screen D id you have a drink containing alcohol in the past year? N o P oints 0 I nterpretation N egative M iscellaneous: C affeine: yes, frequency:, 2-3 cups per day. Children: no. Exercise: yes, occasional, walking. Marital status: . 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 * Medications: T aking Lantus , Taking Losartan Potassium , Taking glipiZIDE 10 MG Tablet 1 tablet 30 minutes before breakfast Orally Twice a day , Taking Insulin , Taking metFORMIN HCl 1000 MG Tablet 1 tablet with a meal Orally Twice a day , Unknown Lisinopril 30 MG Tablet 1 tablet Orally Once a day , Unknown Simvastatin , Unknown Extra Depth Orthopedic Shoes (1 Pair) with Customized Heat Molded Multidensity Innersoles (3 Pair) as directed Dx: NIDDM/Polyneuropathy (E11.42), Hammertoe Foot Deformity (M20.41,M20.42), Preulcerative Skin Lesion(s) (L85.1 , Unknown AFO-fixed . Ankle-Foot Orthotic 1 . Wear daily Objective: * Vitals: H t: 5 ft 10 in, Wt:295 lbs, BMI:42.32, Shoe size: 9.5 W, Ht-cm: 177.8 cm, Wt-k.81 kg. Assessment: Plan: * Treatment: * Images: * The named appointment provid er may or may not be the originator of this progress note, and it is not deemed complete until electronically signed by the appointment provider. Sign off status: Pending * Provider: Betzaida Brown, ALIYA Date: 0 04/07/2024 Generated for Nelia ayoub/Kendell/Jonn on: 1 09/25/2024 10:13 AM EST
--- OUTSIDE RECORDS SUMMARY | 2024-06-22 04:15 | XMS_ITS ---
Author Organization [facility] Address [address] [place] [address] Care Team Providers Care Chain Person Name Role Phone Angel Ordonez Primary Care Provider [phone] Savi Cantu Unavailable [phone] Brian Hutchins Unavailable [phone] Encounters Encounter Location Date Provider Diagnosis [facility] [address] [place] [address] 06/22/2024 Brian Hutchins Plan Of Treatment No Information Progress Notes * Eliel PROCTORDOB: [birth year] (65 yo M)Acc No.[id number]:06/22/2024 Progress Note Patient: Eliel BLANCAS Provider: King Hutchins DPM :1960 A ge:64 Y S ex:Male Date:06/22/2024 Address:[address] [place] [address] [id number] Pcp:Angel Ordonez Subjective: * Chief Complaints: * * Medical History: Objective: * Vitals: Assessment: Plan: * Treatment: * Images: * The named appointment provid er may or may not be the originator of this progress note, and it is not deemed complete until electronically signed by the appointment provider. Sign off status: Pending * Provider: King Hutchins DPM Date: Generated for Nelia ayoub/Kendell/Dannyransmitting on: 09/25/2024 10:13 AM EST
--- NOTE | 2025-07-26 09:28 | HO.NEPHOV_ITS ---
Vital Signs 07/26/25 09:29 Height 5 ft 10 in Weight 329 lb BMI 47.2 BP 152/84 H Blood Pressure Location Rt brachial Position Sitting Pulse 105 H Pulse Source Pulse Oximeter Pulse Oximetry (%) 96 Oxygen Delivery Method Room Air Intake Visit Reasons: 6 wks f/u w/ Confirmed Administrative Representative Required: No Accompanied by: Self / Same As Patient Allergies No Known Allergies Allergy (Verified 07/26/25 09:31) Medication List - Last Reconciled 07/26/25 by Derrick Corona MD albuterol sulfate 90 mcg/actuation 2 inhalations inhalation BID blood sugar diagnostic (OneTouch Ultra Test strips) check blood sugar three times daily blood sugar diagnostic (OneTouch Ultra Test strips) As directed- To test sugar 7 x daily blood-glucose sensor (Valutao G7 Sensor device) test blood sugar three times daily fluticasone propion-salmeterol 500-50 mcg/dose (Wixela Inhub) 2 inhalations inhalation BID insulin aspart U-100 (Novolog U-100 Insulin aspart) 25 units subcut TID insulin glargine (Lantus U-100 Insulin) 50 units subcut BEDTIME semaglutide (Ozempic) mg subcut QWEEK HPI Comments Details: - The patient is a 65-year-old male presenting with chronic kidney disease. - Chronic Kidney Disease: Kidney function decreased to 42 mL/min, previously stable in the 50s. - Diabetes Mellitus: 10-12 year history, A1c in the 5 range. - Hypertension: Managed with Losartan 100 mg daily. - Urinary Tract Infection: Treated with Nitrofurantoin. - Drop Foot: Result of back surgery 10 years ago. - Elevated Liver Enzymes: Abdominal ultrasound planned. 07/26/25 Doing well. Lost few lbs Off Losartan 100 mg qd . Was on Valsartan 160 mg and has stopped it too - ? why [facility] Medical History (Updated 06/16/25 @ 12:34 by Derrick Corona MD) Murmur, cardiac CKD stage 3 due to type 2 diabetes mellitus Elevated liver enzymes Essential hypertension Diabetes mellitus Obesity (BMI 30-39.9) Surgical History History of ear, nose, and throat (ENT) surgery History of total right knee replacement Family History Mother No problems noted. Father No problems noted. 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 Lungs entry equal no rales. Heart S1-S2 heard no gallop or rub. Abdomen soft nontender. Neuro alert awake oriented. No asterixis. Extremities no edema. Results Reviewed Results Reviewed: Abd USG _ Jun 2025 Normal kidneys Nephrology Results: Hgb, (14.0-18.0) 14.7 g/dl 05/24/25 WBC, (4.8-10.8) 8.8 X10*3/uL 05/24/25 Plt Count, (160-400) 246 X10*3/uL 05/24/25 Sodium, (135-145) 139 mmol/L 07/18/25 Potassium, (3.3-5.1) 4.4 mmol/L 07/18/25 Chloride, (96-108) 110 mmol/L H 07/18/25 Carbon Dioxide, (22-29) 21 mmol/L L 07/18/25 BUN, (9-16) 17 mg/dL H 07/18/25 Creatinine, (0.5-1.4) 1.47 mg/dL H 07/18/25 Calcium, (8.4-10.2) 9.8 mg/dL 05/24/25 Urine Protein, (Neg-Trace) Negative mg/dL 07/18/25 Urine Creatinine 130.39 mg/dL 05/24/25 Assessment & Plan Assessment & Plan (1) CKD stage 3 due to type 2 diabetes mellitus: Comment: - Chronic kidney disease stage 3B based on eGFR Code(s): E11.22 - Type 2 diabetes mellitus with diabetic chronic kidney disease; N18.30 - Chronic kidney disease, stage 3 unspecified Category: Medical Plan 1. Chronic Kidney Disease in the setting of longstanding diabetes mellitus and obesity. Renal function has been relatively stable for the last 3 years. Recent decline in EGFR may be due to hypoperfusion. Recent urinalysis was benign and therefore glomerular nephritis or interstitial disease seem unlikely. No Obstruction eGFR at 48 ml/mt Clsoe to baseline NEeds to loose weight Maintain A1C < 7% and BP < 130/80 restart Valsartan at 80 mg QD As he continues to lose weight with Ozempic and diet, we need to watch BP And lower and DC Valsartan as indicated 2. Diabetes Mellitus - Continue current diabetes management with insulin, monitor A1c levels. 3. Hypertension as above Orders: Orders Basic Metabolic Panel 8 Weeks E11.22 - Type 2 diabetes mellitus with diabetic chronic kidney disease, I10 - Essential (primary) hypertension, N18.30 - Chronic kidney disease, stage 3 unspecified Medications: New valsartan 80 mg PO DAILY 90 tabs 1RF Coding Level of Care Code Est Pt Level 4 (58911) Diagnoses CKD stage 3 due to type 2 diabetes mellitus E11.22; N18.30
[2025-07-26 09:29] VITALS: BP 152/84; PULSE 105; O2SAT 96; BMI 47.2
--- OUTSIDE RECORDS SUMMARY | 2025-07-26 10:13 | XMS_ITS | Patient Health Record ---
Author Organization [facility] benjamin Sergei Address [address] [address] Care Team Providers Care Morphologist Name Role Phone MeryAngel Primary Care Provider [phone] Savi Cantu Unavailable [phone] Brian Hutchins Unavailable [phone] Allergies No Known Allergies Results Component Value [...] Problem Acquired hammer toe of right foot (0861109022737271 ) Other hammer toe(s) (acquired), right foot (M20.41) Active confirmed Problem Acquired hammer toe of left foot (5341848377936152 ) Other hammer toe(s) (acquired), left foot (M20.42) Active confirmed Problem Polyneuropathy due to type 2 diabetes mellitus (024092554) Type 2 diabetes mellitus with diabetic polyneuropathy (E11.42) Active confirmed Vital Signs Blood pressure diastolic 65 mm Hg 06/06/2025 Height 4hk19mq in 06/06/2025 Blood pressure systolic 130 mm Hg 06/06/2025 Weight 328 lbs 06/06/2025 BMI 47.06 kg/m2 06/06/2025 Procedures Procedure Date Ordered Date Performed Result Body Sit e 99304-UPZRJSO NAIL, 6 OR MORE 06/06/2025 N/A 62155-VIPI SKIN LESIONS, 2 TO 4 06/06/2025 N/A Encounters Encounter Location Date [facility] [address] [address] 02/17/2025 Savi Cantu Other hammer toe(s) (acquired), right foot M20.41 ; Other hammer toe(s) (acquired), left foot M20.42 ; Type 2 diabetes mellitus with diabetic polyneuropathy E11.42 and Tinea unguium B35.1 [facility] [address] [place] [address] 06/06/2025 Savi Cantu Type 2 diabetes mellitus with diabetic polyneuropathy E11.42 ; Tinea unguium B35.1 and Left foot drop M21.372 [facility] [place] [address] [facility] [address] [place] [address] 06/27/2025 [facility] [address] [place] [address] 07/01/2025 Brian Hutchins Assessments Encounter Date Diagnosis [...] Treatment Pending Test Test Name Order Date 66553-[id number] NAIL, 6 OR MORE 03/29/2024 96702-MHBPAUL NAIL, 6 OR MORE 06/06/2025 39568-ZOPP SKIN LESIONS, 2 TO 4 06/06/20 25 52020-GNAG SKIN LESIONS, 2 TO 4 03/29/20 24 Insurance Providers Payer Name Payer Address Payer Phone Subscriber Number Group Number Insured Name Patient Relationship to Insured Coverage Start Date Coverage End Date [facility]) [address] [place] [id number] Eliel Tay Self - patient is the insured Medical (General) History Medical History History ICD Code Neuropathy type II diabetes High blood pressure Lung disease asthma Surgical History Surgery Date(Month/Year) back surgery 08/2014 3 sinus surgery 2013 foot sx Blister 11/2018
--- OUTSIDE RECORDS SUMMARY | 2025-07-26 10:14 | XMS_ITS | Data Portability ---
Author Organization [facility]ks [facility], [address] Address [address] [place] [address] Care Team Providers Care Preschool Paraprofessional Name Role Phone NAYELI GALINDO Primary Care Provider Assessment No assessment recorded. Plan of Treatment Reminders Order Date Submit Date Provider Last Modified By Organization Details Last Modified Time Details Appointments None recorded. Lab glucose, fingerstick , blood 2022 023 THEE _[facility], [facility] [place], [address], 3 10:17:47 Referral wound care referral 2022 023 [email or web address] 26 [facility], [address] [place] [address], [address], 3 07:45:56 Procedures None recorded. Surgeries None recorded. Imaging None recorded. Medication Orders cephalexin 500 mg capsule 2022 023 [email or web address] 247 [facility]/Pharmacy #[id number], [address] [place], [address], 3 18:53:01 Patient TargetsNo targets recorded. Patient Instructions Encounter Date Encounter Id Patient Instructions Last Modified By Organization Details Last Modified Time 03/02/2023 [id number] application of wound dressing* THEE Not available 03/04/2023 08:25:58 Return to [facility] in 2 days for dressing change and wound re-evaluation. Schedule an appointment with the wound care clinic as soon as possible. Go directly to the ER if: The rash spreads beyond the dressing The are becomes painful There are red streaks coming up your leg You develop a fever Your blood sugar level increases from you average levels [email or web address] Not available 03/02/2023 10:18:07 Reason for Referral Referring Physician: Sneha niño, Urgent Care, Encounter Date: 03/02/2023 Results Created Date Observation Date Name Description Value Unit Range Abnormal Flag Note LastModifiedBy Organization Detail LastModifiedTime 03/02/2003/02/2023 gluco se, finge rstic k, blood blood sugar - non fasting 145 mg/dL 80-140 = normal Not Available [address] [place] [address], [address], 03/02/2023 10:08:45 03/02/2003/02/2023 gluco se, finge rstic k, blood blood sugar - fasting mg/dL 80-125 = normal Not Available [address] [place] [address], [address], 03/02/2023 10:08:45 Result Notes None recorded. Problems Name Problem SNOMED Code Status Onset Date Resolution Date Notes Provider Name and Address Organization Details Recorded Time Diabetes mellitus 67186991 Active 2022 Helen hinton, [place] - [facility] 3 09:36:40 Hypertensive disorder 93067778 Active 2022 Helen hinton, [place] - [facility] 3 09:36:48 Arthritis 8720131 Active 2022 Helen hinton, [place] - [facility] 3 09:37:45 Problem Notes None recorded. Procedures Surgical History Date Name Laterality Status Provider Name and Address Organization Details Recorded Time 3 Wound Dressing completed SNEHA SHELDON MD [facility] [place], [address], [place] - [facility] 03/11/2023 19:08:03 Imaging [...] Not Available Not Available No t Available KuonaToJaman Ultra Test strips USE TO TEST 6 [...] Updated DateTime 3 177.8 cm 47.3 kg/m2 112679. 48 g 0 18 /min 97 [degF] 97 % 97 % 81 /min 136/86 mm[Hg] Helen CRAIN [facility] 3 09:39:15 Social History Question Answer Notes LastModified by [employer] Details LastModified Time Tobacco Smoking Status Never Smoker Helen hinton [facility] 03/02/2023 09:37:51 Have You Recently Traveled Abroad? No Information not available 03/02/2023 Sex: Unknown Functional Status Question Answer Note LastModified by [employer] Details LastModified Time Do you use any [...] Diagnosis SNOMED-CT Code Diagnosis ICD10 Code Diagnosis IMO Codes Diagnosis Note [id number] 21009_[address]ulwant [address] [place] [address] 03/13/2020 08:01:58 03/13/2020 09:06:51 [id number] 20999_[address]les eyАлександр treet _[address] [facility] [place] [address] 08/13/2021 09:20:42 08/13/2021 12:30:07 [id number] [address] [place] [address] 02/06/2016 11:33:15 02/06/2016 15:10:00 [id number] [address] [place] [address] 02/04/2017 09:25:30 02/04/2017 11:05:18 [id number] SNEHA SHELDON MD [address] [place] [address] 03/02/2023 08:12:40 03/02/2023 10:19:06 Open wound of lower leg 564559942 S81.802A Peripheral neuropathy due to type 2 diabetes mellitus 3135897913 107 E11.42 Health Concerns Section Related Observation LastModified by Organization Detai ls LastModified Time None Recorded Concern Status LastModified by Organization Details LastModified Time None Recorded Advance Directives Directive None Recorded Payers Insurance Date Sequence Insurance Name Policy Number Policy Oconnell Covered Member ID Oconnell Member ID Guarantor Name 03/13/2023 1 [facility] IN[facility]MN[facility] PLAN (INDEMNITY) [id number] 1 Eliel De León [id number] Eliel De León 03/13/2023 1 [employer] (PPO) [id number] 1 Nancy James [id number] Eliel De León Notes Date Note Type Note Provider Name and Address Organization Details Recorded Time 03/02/2023 text/html open sore on bilateral legs x1 week. 62 yo male with Type 2 Diabetes who has had a rash on both lower legs for months. He is followed by a [employer] who prescribed clobetasol for the rash. He states that the skin over the rash stated to blister and peal off 1 week ago. He was still applying the clobetasol but the rash is spreading and the skin is still falling off. He has peripheral neuropathy so he doesn't feel pain in the area. SNEHA SHELDON MD [address] [place], [address], [place] - [facility] 03/11/2023 19:08:23
--- OUTSIDE RECORDS SUMMARY | 2025-07-26 10:14 | XMS_ITS | Clinical Summary ---
Author Organization [facility] Address [address] [place] [address] Phone Care Team Providers Care Optometric Tech Name Role Phone Angel Ordonez MD Primary [...] Winter months 03/15/20 23 Active DEXCOM G7 CURRENCY EXAMINER Misc by Miscellaneous route as needed. 1 each 03/20/20 23 Active TWINLINXUCH ULTRA TEST Strp stripsIndication s:Type 2 diabetes [...] her glucose [facility]. [facility] at [facility] will get a copy Assessment & Plan [...] his glucose levels. Up to date with [facility]. Primary hypertension 11/01/2021 Assessment & Plan [...] mellitus type 2, Dx 2004. Weight cycling. 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 History of weight cycling. 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 Encouraged to continue to make healthy [...] CGM and lifestyle modifications following with a dental chairside assistant. Reports he had 6.5% not long [...] Team Description 04/26/2025 Telephone [facility] [address] [place] [address] Colleen Velarde MD Lab Orders Faxed ; Results from Last 3 Months Immunizations Immunization Administration [...] 8:20 AM EST Office Visit [facility] [address] [place] [address] Colleen Velarde MD [address] [place] [address] [email or web address] Health Maintenance Due Date Last Done Comments [...] 01/10/2024 01/09/2023, 12/04/2011 LIPID PANEL 01/10/2024 01/09/2023, 042 , 01/09/2023, Additional history exists POTASSIUM LEVEL 01/10/2024 01/09/2023, 12/04/2011 HEMOGLOBIN A1C 06/04/2024 12/03/2023, 04/2 , 08/06/2022, Additional history exists INFLUENZA VACCINE (#1) 2025 , 05/12/2020, 06/15/2017, Additional history exists COVID-19 VACCINE (2024- season) 2025 08/05/2021 BLOOD PRESSURE 10/12/2025 04/11/2025 [...] - External 5.8 % us Historical Provider MD LAB BLOOD ORDERABLES Adeola l Result * Outside Potassium Level (01/09/2023) Potassium level - External 5 3.4 - 5.0 mmol/L us Historical Provider MD LAB BLOOD ORDERABLES Adeola l Result * (ABNORMAL) Outside Serum Creatinine Level (01/09/2023) Creatinine, serum - External 1.67(A) 0.8 - 1.3 mg/dL Historical Provider MD LAB BLOOD ORDERABLES Adeola l Result * (ABNORMAL) Outside HDL (01/09/2023) Pathologist [facility] HDL - External 30(A) 40 - 80 mg/dL [facility] Provider MD LAB BLOOD ORDERABLES Adeola l Result * Outside Hepatitis C Virus Screening (03/19/2013) Pathologist [facility] Hepatitis C Screening - External Neg [facility] Provider MD LAB BLOOD ORDERABLES Adeola l Result from Last 3 Months or Most Recently Relevant to Health Maintenance Insurance [employer] CHOICE [employer] CHOICE [facility] COMM[facility] CHOICE [facility] CHOICE [facility] [place] [address] [facility] [place] [address] [facility]ICE [facility] [place] [address] [facility] CHOICE Care Teams Optometric Tech Relationship Specialty Start Date End Date Angel Ordonez MD [address] [place] [address] PCP - General Internal Medicine 04/11/25 Additional Source Comments The information contained in this document represents components of the legal health record. It is not the complete legal health record.[facility]
== END 2025-07-26 11:12 | disposition home or self-care (01) ==
LOC: HO.HKA 09:21
PROVIDERS: PCP Student in an Organized Health Care Education/Training Program; Visit Provider Internal Medicine Hypertension Specialist
DX: E11.22 Type 2 diabetes mellitus with diabetic chronic kidney disease (principal); N18.30 Chronic kidney disease, stage 3 unspecified
CPT/HCPCS: 99214

== ENCOUNTER 2025-08-29 13:44 | Outpatient (REF) | payer OTHER, SELFPAY ==
[2025-08-29 16:43] LABS: Anion Gap 15 (12-20); Blood Urea Nitrogen 23 mg/dL (9-16); Calcium 9.3 mg/dL (8.4-10.2); Carbon Dioxide 23 mmol/L (22-29); Chloride 106 mmol/L (96-108); Cholesterol 190 mg/dL (<200); Estimated Glomerular Filt Rate 50; HDL Cholesterol 34 mg/dL (>40); Potassium 4.3 mmol/L (3.3-5.1); Sodium 140 mmol/L (135-145); Triglycerides 328 mg/dL (<150)
[2025-08-29 16:46] LABS: Appearance Urine Cloudy; Glucose Urine UA Negative (Negative); PH 5.5 (5.0-9.0); Specific Gravity - Urine 1.010 (1.005-1.025); UMIC TRIGGER UACC YES
[2025-08-29 18:17] LABS: UACC Culture Trigger YES
--- OUTSIDE RECORDS SUMMARY | 2025-08-29 22:32 | XMS_ITS | Data Portability ---
Author Organization BREANN Burks [facility], [address] Address [address] [place] [address] Care Team Providers Care Fur Ironer Name Role Phone NAYELI GALINDO Primary Care Provider [phone] Assessment No assessment recorded. Plan of Treatment Reminders Order Date Submit Date Provider Last Modified By Organization Details Last Modified Time Details Appointments None recorded. Lab glucose, fingerstick , blood 2022 023 THEE _[facility], [facility] [place], [address], 3 10:17:47 Referral wound care referral 2022 023 [email or web address] 26 [facility], [address] [place] [address], [address], 3 07:45:56 Procedures None recorded. Surgeries None recorded. Imaging None recorded. Medication Orders cephalexin 500 mg capsule 2022 023 [email or web address] 247 [facility]/Pharmacy #[id number], [address] [place], [address], 3 18:53:01 Patient TargetsNo targets recorded. Patient Instructions Encounter Date Encounter Id Patient Instructions Last Modified By Organization Details Last Modified Time 03/02/2023 [id number] application of wound dressing* THEE Not available 03/04/2023 08:25:58 Return to [facility] in 2 days for dressing change and wound re-evaluation. Schedule an appointment with the wound care clinic as soon as possible. Go directly to the ER if: The rash spreads beyond the dressing The are becomes painful There are red streaks coming up your leg You develop a fever Your blood sugar level increases from you average levels [id number] Not available 03/02/2023 10:18:07 Reason for Referral Referring Physician: Sneha niño, Urgent Care, Encounter Date: 03/02/2023 Results Created Date Observation Date Name Description Value Unit Range Abnormal Flag Note LastModifiedBy Organization Detail LastModifiedTime 03/02/2003/02/2023 gluco se, finge rstic k, blood blood sugar - non fasting 145 mg/dL 80-140 = normal Not Available [address] [place] [address], [address], 03/02/2023 10:08:45 03/02/2003/02/2023 gluco se, finge rstic k, blood blood sugar - fasting mg/dL 80-125 = normal Not Available [address] [place] [address], [address], 03/02/2023 10:08:45 Result Notes None recorded. Problems Name Problem SNOMED Code Status Onset Date Resolution Date Notes Provider Name and Address Organization Details Recorded Time Diabetes mellitus 39759351 Active 2022 Helen hinton, [place] - [facility] 3 09:36:40 Hypertensive disorder 40724779 Active 2022 Helen hinton, [place] - [facility] 3 09:36:48 Arthritis 6336169 Active 2022 Helen hinton, [place] - [facility] 3 09:37:45 Problem Notes None recorded. Procedures Surgical History Date Name Laterality Status Provider Name and Address Organization Details Recorded Time 3 Wound Dressing completed SNEHA SHELDON MD [facility] [place], [address], [place] - [facility] 03/11/2023 19:08:03 Imaging [...] Not Available Not Available No t Available [employer] Ultra Test strips USE TO TEST 6 [...] Reported Respiratory rate Body temperature Oxygen saturation Heart rate Systolic And Diastolic Provider Name and Address Organization Details Last Updated DateTime 3 177.8 cm 47.3 kg/m2 291844. 48 g 0 18 /min 97 [degF] 97 % 81 /min 136/86 mm[Hg] Helen CRAIN [facility] 3 09:39:15 Social History Question Answer Notes LastModified by [employer] Details LastModified Time Tobacco Smoking Status Never Smoker Helen hinton [facility] 03/02/2023 09:37:51 Have You Recently Traveled Abroad? No Information not available 03/02/2023 Sex: Unknown Functional Status Question Answer Note LastModified by [employer] Details LastModified Time Do you use any [...] ICD10 Code Diagnosis IMO Codes Diagnosis Note [id number] 21009_Hadl eyRussellS treet _[address] [place] [address] 03/13/2020 08:01:58 03/13/2020 09:06:51 [id number] 20999_[address]l eyRussellS treet [address] [facility] [place] [address] 08/13/2021 09:20:42 08/13/2021 12:30:07 [id number] [address] [place] [address] 02/06/2016 11:33:15 02/06/2016 15:10:00 [id number] [address] [place] [address] 02/04/2017 09:25:30 02/04/2017 11:05:18 [id number] SNEHA SHELDON MD [address] [place] [address] 03/02/2023 08:12:40 03/02/2023 10:19:06 Open wound of lower leg 816275572 S81.802A Peripheral neuropathy due to type 2 diabetes mellitus 7706047936 107 E11.42 Health Concerns Section Related Observation LastModified by Organization Detai ls LastModified Time None Recorded Concern Status LastModified by Organization Details LastModified Time None Recorded Advance Directives Directive None Recorded Payers Insurance Date Sequence Insurance Name Policy Number Policy Oconnell Covered Member ID Oconnell Member ID Guarantor Name 03/13/2023 1 [facility] IN[facility] (INDEMNITY) [id number] 1 Eliel De León [id number] Eliel De León 03/13/2023 1 [employer] (PPO) [id number] 1 Nancy James [id number] Eliel De León Notes Date Note Type Note Provider Name and Address Organization Details Recorded Time 03/02/2023 text/html open sore on bilateral legs x1 week. 62 yo male with Type 2 Diabetes who has had a rash on both lower legs for months. He is followed by a Caterer Helper who prescribed clobetasol for the rash. He states that the skin over the rash stated to blister and peal off 1 week ago. He was still applying the clobetasol but the rash is spreading and the skin is still falling off. He has peripheral neuropathy so he doesn't feel pain in the area. SNEHA SHELDON MD [address] [place], [address], [place] - [facility] 03/11/2023 19:08:23
--- OUTSIDE RECORDS SUMMARY | 2025-08-29 22:32 | XMS_ITS | Clinical Summary ---
Author Organization [facility] Address [address] [facility] [address] [place] [address] Phone Care Team Providers Care Dredge Runner Name Role Phone Angel Ordonez MD Primary [...] Winter months 03/15/20 23 Active DEXCOM G7 HAND SURGEON Misc by Miscellaneous route as needed. 1 each 03/20/20 23 Active seasonax GmbHUCH ULTRA TEST Strp stripsIndication s:Type 2 diabetes [...] her glucose levels. [facility] will get a copy Assessment [...] his glucose levels. Up to date with [facility]. Primary hypertension 11/01/2021 Assessment & Plan [...] mellitus type 2, Dx 2004. Weight cycling. 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 History of weight cycling. 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 Encouraged to continue to make healthy [...] CGM and lifestyle modifications following with a investment sales assistant. Reports he had 6.5% not long [...] his Hx and therapy in greater depth. Immunizations Immunization Administration Dates Next Due Flu [...] 8:20 AM EST Office Visit [facility] [address] [place] [address] Colleen Velarde MD [address] [place] [address] [email or web address] Health Maintenance Due Date Last Done Comments [...] (12/03/2023) Hemoglobin A1c - External 5.8 % Historical Provider LAB BLOOD ORDERABLES Adeola l Result * Outside Potassium Level (01/09/2023) Potassium level - External 5 3.4 - 5.0 mmol/L Historical Provider LAB BLOOD ORDERABLES Adeola l Result * (ABNORMAL) Outside Serum Creatinine Level (01/09/2023) Creatinine, serum - External 1.67(A) 0.8 - 1.3 mg/dL Historical Provider LAB BLOOD ORDERABLES Adeola l Result * (ABNORMAL) Outside HDL (01/09/2023) HDL - External 30(A) 40 - 80 mg/dL Historical Provider MD LAB BLOOD ORDERABLES Adeola l Result * Outside Hepatitis C Virus Screening (03/19/2013) Pathologist [facility] Hepatitis C Screening - External Neg us Historical Provider MD LAB BLOOD ORDERABLES Adeola l Result from Last 3 Months or Most Recently Relevant to Health Maintenance Insurance [employer] CHOICE Nov[employer] [facility] Algorithmics CHOICE [facility] COMMUNITY CHOICE [facility] CHOICE [facility] [place] [address] OLMST[facility] COMMUNITY CHOICE [facility] CHOICE [facility] CHOICE Care Teams Dredge Runner Relationship Specialty Start Date End Date Angel Ordonez MD [address] [place] [address] PCP - General Internal Medicine 04/11/25 Additional Source Comments The information contained in this document represents components of the legal health record. It is not the complete legal health record.[facility]
== END 2025-08-29 13:45 | disposition home or self-care (01) ==
LOC: HO.HMGCLDS 13:44
PROVIDERS: Internal Medicine; PCP Student in an Organized Health Care Education/Training Program; Visit Provider Internal Medicine Hypertension Specialist
DX: E11.22 Type 2 diabetes mellitus with diabetic chronic kidney disease (principal); N18.30 Chronic kidney disease, stage 3 unspecified; H61.22 Impacted cerumen, left ear; M25.569 Pain in unspecified knee
CPT/HCPCS: 36415; 80048; 80061; 81001; 83036; 87086

== ENCOUNTER 2025-09-19 07:54 | Outpatient (AMB) | payer OTHER, SELFPAY ==
--- OUTSIDE RECORDS SUMMARY | 2024-04-07 03:30 | XMS_ITS ---
Author Organization [facility] Address [address] [place] [address] Care Team Providers Care Mcat Tutor Name Role Phone Mery, Kartik Primary Care Provider Savi Cantu Unavailable [phone] Rosemary Brown Unavailable [phone] REASON FOR VISIT Seen Sooner Medications Medication [...] 04/07/2024 Encounters Encounter Location Date Provider Diagnosis [facility] [place] [address] [place] [address] 04/07/2024 Rosemary Brown Plan Of Treatment No Information Progress Notes * Eliel DE LEÓNDOB: [birth year] (65 yo M)Acc No.[id number]:04/07/2024 Progress Notes Patient: Eliel BLANCAS Provider: Betzaida Brown DPM :1960 A ge:64 Y S ex:Male Date:04/07/2024 Address:[address] [place] [address] [place] Pcp:Angel Ordonez Subjective: * Chief Complaints: * [...] enies. C ardiovascular: Pacemaker d enies. M POLICYHOLDER INFORMATION CLERK d enies. W PW d enies. C [...] yes, occasional, walking. Marital status: . 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 * Medications: T aking Lantus , Taking [...] 04/07/2024 Generated for Nelia ayoub/Kendell/Jonn on: 1 07:59 AM EST
--- OUTSIDE RECORDS SUMMARY | 2024-06-22 04:15 | XMS_ITS ---
Author Organization [facility] Address [address] [place] [address] Care Team Providers Care Shank Sorter Name Role Phone Angel Ordonez Primary Care Provider [phone] Savi Cantu Unavailable [phone] Brian Hutchins Unavailable [phone] Encounters Encounter Location Date Provider Diagnosis [facility] [address] [place] [address] 06/22/2024 Brian Hutchins Plan Of Treatment No Information Progress Notes * Eliel PROCTORDOB: [birth year] (65 yo M)Acc No.[id number]:06/22/2024 Progress Note Patient: Eliel BLANCAS Provider: King Hutchins DPM :1960 A ge:64 Y S ex:Male Date:06/22/2024 Address[facility] [place] [place] [address] [id number] Pcp:Angel Ordonez Subjective: * Chief Complaints: * * Medical History: Objective: * Vitals: Assessment: Plan: * Treatment: * Images: * The named appointment provid er may or may not be the originator of this progress note, and it is not deemed complete until electronically signed by the appointment provider. Sign off status: Pending * Provider: King Hutchins DPM Date: Generated for Nelia ayoub/Kendell/eTransmitting on: 07:59 AM EST
--- OUTSIDE RECORDS SUMMARY | 2025-09-05 04:30 | XMS_ITS ---
Author Organization [facility] [place] Address [address] [facility] [place] [address] Care Team Providers Care Tomographic Tech Name Role Phone Angel Ordonez Primary Care Provider Savi Cantu [phone] Encounters Encounter Location Date Provider Diagnosis [facility] [address] [place] [address] 09/05/2025 Savi Cantu Plan Of Treatment No Information Progress Notes * Eliel PROCTORDOB: [birth year] (65 yo M)Acc No.[id number]:09/05/2025 Progress Note Patient: Eliel BLANCAS Provider: Anna Cantu DPM :1960 A ge:65 Y S ex:Male Date:09/05/2025 Address:[address] [place] [address] [facility] [id number] Pcp:Angel Ordonez Subjective: * Chief Complaints: * * Medical History: Objective: * Vitals: Assessment: Plan: * Treatment: * Images: * The named appointment provid er may or may not be the originator of this progress note, and it is not deemed complete until electronically signed by the appointment provider. Sign off status: Pending * Provider: Anna Cantu DPM Date: 11/06/2024 Generated for Printi ng/Fachrisg/eTransmitting on: 07:58 AM EST
--- OUTSIDE RECORDS SUMMARY | 2025-09-19 07:59 | XMS_ITS | Clinical Summary ---
Author Organization [facility] Address [address] [facility] [address] [place] [address] Phone Care Team Providers Care Machine Feeder Raw Stock Name Role Phone Angel Ordonez MD Primary [...] Winter months 03/15/20 23 Active DEXCOM G7 PEDIATRIC DENTAL HYGIENIST Misc by Miscellaneous route as needed. 1 each 03/20/20 23 Active BlueSnapUCH ULTRA TEST Strp stripsIndication s:Type 2 diabetes [...] her glucose levels. [facility] will get a copy Assessment [...] his glucose levels. Up to date with [facility]. Primary hypertension 11/01/2021 Assessment & Plan [...] mellitus type 2, Dx 2004. Weight cycling. 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 History of weight cycling. 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 Encouraged to continue to make healthy [...] CGM and lifestyle modifications following with a restaurant line cook. Reports he had 6.5% not long ago [...] Description 11/14/2025 8:20 AM EST Office Visit [facility] [address] [place] [address] [place] [address] Colleen Velarde MD [address] [place] [address] [email or web address] Health Maintenance Due Date Last Done Comments [...] 01/10/2024 01/09/2023, 12/04/2011 HEMOGLOBIN A1C 06/04/2024 12/03/2023, 042 , 08/06/2022, Additional history exists INFLUENZA VACCINE [...] (03/19/2013) Hepatitis C Screening - External Neg us Historical Provider MD LAB BLOOD ORDERABLES Adeola l Result from Last 3 Months or Most Recently Relevant to Health Maintenance Insurance [employer] [facility] Lifestyle Air CHOICE [employer]ICE [facility] CHOICE Care Teams Machine Feeder Raw Stock Relationship Specialty Start Date End Date Angel Ordonez MD [address] [place] [address] PCP - General Internal Medicine 04/11/25 Additional Source Comments The information contained in this document represents components of the legal health record. It is not the complete legal health record.[facility]
--- OUTSIDE RECORDS SUMMARY | 2025-09-19 07:59 | XMS_ITS | Patient Health Record ---
Author Organization [facility] [place] Address [address] [facility] [place] [address] Care Team Providers Care Tobacco Drummer Name Role Phone MeryAngel Primary Care Provider [phone] Savi Cantu Unavailable [phone] Brian Hutchins Unavailable [phone] Allergies No Known Allergies Results Component Value [...] Problem Acquired hammer toe of right foot (8902835915029458 ) Other hammer toe(s) (acquired), right foot (M20.41) Active confirmed Problem Acquired hammer toe of left foot (7558907890622442 ) Other hammer toe(s) (acquired), left foot (M20.42) Active confirmed Problem Polyneuropathy due to type 2 diabetes mellitus (066920216) Type 2 diabetes mellitus with diabetic polyneuropathy (E11.42) Active confirmed Vital Signs Blood pressure diastolic 65 mm Hg 06/06/2025 Height 0mw17mf in 06/06/2025 Blood pressure systolic 130 mm Hg 06/06/2025 Weight 328 lbs 06/06/2025 BMI 47.06 kg/m2 06/06/2025 Procedures Procedure Date Ordered Date Performed Result Body Sit e 26246-YJEOBDE NAIL, 6 OR MORE 06/06/2025 N/A 65689-LWLN SKIN LESIONS, 2 TO 4 06/06/2025 N/A Encounters Encounter Location Date Provider Diagnosis [facility] [address] [address] 02/17/2025 Svai Cantu Other hammer toe(s) (acquired), right foot M20.41 ; Other hammer toe(s) (acquired), left foot M20.42 ; Type 2 diabetes mellitus with diabetic polyneuropathy E11.42 and Tinea unguium B35.1 [facility] [address] [place] [address] 06/06/2025 Savi Cantu Type 2 diabetes mellitus with diabetic polyneuropathy E11.42 ; Tinea unguium B35.1 and Left foot drop M21.372 [facility] [place] [address] [facility] [address] [place] [address] 06/27/2025 [facility] [address] [place] [address] 07/01/2025 Brian Hutchins Assessments Encounter Date Diagnosis [...] Treatment Pending Test Test Name Order Date 37542-WUEBZAB NAIL, 6 OR MORE 03/29/2024 04049-MEEZPSW NAIL, 6 OR MORE 06/06/2025 08943-PLAC SKIN LESIONS, 2 TO 4 06/06/20 25 79949-OHTU SKIN LESIONS, 2 TO 4 03/29/20 24 Insurance Providers Payer Name Payer Address Payer Phone Subscriber Number Group Number Insured Name Patient Relationship to Insured Coverage Start Date Coverage End Date [facility] [address] [place] [id number] Eliel Tay Self - patient is the insured Medical (General) History Medical History History ICD Code Neuropathy type II diabetes High blood pressure Lung disease asthma Surgical History Surgery Date(Month/Year) back surgery 08/2014 3 sinus surgery 2013 foot sx Blister 11/2018
--- OUTSIDE RECORDS SUMMARY | 2025-09-19 07:59 | XMS_ITS | Data Portability ---
Author Organization [facility], [address] Address [address] [place] [address] Care Team Providers Care Manager Educational Name Role Phone NAYELI GALINDO Primary Care Provider [phone] Assessment No assessment recorded. Plan of Treatment Reminders Order Date Submit Date Provider Last Modified By Organization Details Last Modified Time Details Appointments None recorded. Lab glucose, fingerstick , blood 2022 023 THEE [facility], [facility] [place], [address], 3 10:17:47 Referral wound care referral 2022 023 [email or web address] 26 [facility], [address] [place] [address], [address], 3 07:45:56 Procedures None recorded. Surgeries None recorded. Imaging None recorded. Medication Orders cephalexin 500 mg capsule 2022 023 [email or web address] 247 [facility] #[id number], [address] [place], [address], 3 18:53:01 Patient TargetsNo targets recorded. Patient Instructions Encounter Date Encounter Id Patient Instructions Last Modified By Organization Details Last Modified Time 03/02/2023 [id number] application of wound dressing* THEE Not available 03/04/2023 08:25:58 Return to [facility] in 2 days for dressing change and wound re-evaluation. Schedule an appointment with the wound care clinic as soon as possible. Go directly to the ER if: The rash spreads beyond the dressing The are becomes painful There are red streaks coming up your leg You develop a fever Your blood sugar level increases from you average levels [email or web address] Not available 03/02/2023 10:18:07 Reason for Referral Referring Physician: Sneha niño, Urgent Care, Encounter Date: 03/02/2023 Results Created Date Observation Date Name Description Value Unit Range Abnormal Flag Note LastModifiedBy Organization Detail LastModifiedTime 03/02/2003/02/2023 gluco se, finge rstic k, blood blood sugar - non fasting 145 mg/dL 80-140 = normal Not Available [address] [place] [address], [phone], 03/02/2023 10:08:45 03/02/2003/02/2023 gluco se, finge rstic k, blood blood sugar - fasting mg/dL 80-125 = normal Not Available [address] [place] [address], [id number], 03/02/2023 10:08:45 Result Notes None recorded. Problems Name Problem SNOMED Code Status Onset Date Resolution Date Notes Provider Name and Address Organization Details Recorded Time Diabetes mellitus 18393000 Active 2022 Helen hinton, [place] - [facility] 3 09:36:40 Hypertensive disorder 46718305 Active 2022 Helen hinton, [place] - [facility] 3 09:36:48 Arthritis 1024407 Active 2022 Helen hinton, [place] - [facility] 3 09:37:45 Problem Notes None recorded. Procedures Surgical History Date Name Laterality Status Provider Name and Address Organization Details Recorded Time 3 Wound Dressing completed SNEHA SHELDON MD [facility] [place], [address], [place] - [facility] 03/11/2023 19:08:03 Imaging [...] Not Available Not Available No t Available [employer] Ultra Test strips USE TO TEST 6 [...] Updated DateTime 3 177.8 cm 47.3 kg/m2 394194. 48 g 0 18 /min 97 [degF] 97 % 81 /min 136/86 mm[Hg] Helen CRAIN [facility] 3 09:39:15 Social History Question Answer Notes LastModified by [employer]av[employer] Details LastModified Time Tobacco Smoking Status Never Smoker Helen hinton [facility] 03/02/2023 09:37:51 Have You Recently Traveled Abroad? No Information not available 03/02/2023 Sex: Unknown Functional Status Question Answer Note LastModified by [employer] Details LastModified Time Do you use any [...] ICD10 Code Diagnosis IMO Codes Diagnosis Note [id number] [address] [place] [address] 03/13/2020 08:01:58 03/13/2020 09:06:51 [id number] [address] [facility] [place] [address] 08/13/2021 09:20:42 08/13/2021 12:30:07 [id number] [address] [place] [address] 02/06/2016 11:33:15 02/06/2016 15:10:00 [id number] [address] [place] [address] 02/04/2017 09:25:30 02/04/2017 11:05:18 [id number] SNEHA SHELDON MD [address] [place] [address] 03/02/2023 08:12:40 03/02/2023 10:19:06 Open wound of lower leg 814362162 S81.802A Peripheral neuropathy due to type 2 diabetes mellitus 8937233660 107 E11.42 Health Concerns Section Related Observation LastModified by Organization Detai ls LastModified Time None Recorded Concern Status LastModified by Organization Details LastModified Time None Recorded Advance Directives Directive None Recorded Payers Insurance Date Sequence Insurance Name Policy Number Policy Oconnell Covered Member ID Oconnell Member ID Guarantor Name 03/13/2023 1 [facility] INDEMNITY PLAN (INDEMNITY) [id number] 1 Eliel De León [id number] Eliel De León 03/13/2023 1 [employer] (PPO) [id number] 1 Nancy James [id number] Eliel De León Notes Date Note Type Note Provider Name and Address Organization Details Recorded Time 03/02/2023 text/html open sore on bilateral legs x1 week. 62 yo male with Type 2 Diabetes who has had a rash on both lower legs for months. He is followed by a Arc Welder Apprentice who prescribed clobetasol for the rash. He states that the skin over the rash stated to blister and peal off 1 week ago. He was still applying the clobetasol but the rash is spreading and the skin is still falling off. He has peripheral neuropathy so he doesn't feel pain in the area. SNEHA SHELDON MD [address] [place], [address], [place] - [facility] 03/11/2023 19:08:23
--- NOTE | 2025-09-19 08:10 | A.OFFPC_ITS ---
Vital Signs 09/19/25 08:11 Height 5 ft 10 in Weight 312 lb 7 oz BMI 44.8 BP 130/80 Blood Pressure Location Lt brachial Position Sitting Respiration 16 Pulse 87 Pulse Source Pulse Oximeter Temp 96.9 F Temp Source Temporal Artery Scan Pulse Oximetry (%) 97 Oxygen Delivery Method Room Air Intake Visit Reasons: 3 month f/u Keg Header Required: No Accompanied by: Self / Same As Patient Allergies No Known Allergies Allergy (Verified 09/19/25 08:11) Medication List - Last Reconciled 09/19/25 by Gutierrez Kessler MD albuterol sulfate 90 mcg/actuation 2 inhalations inhalation BID blood sugar diagnostic (OneTouch Ultra Test strips) check blood sugar three times daily blood sugar diagnostic (OneTouch Ultra Test strips) As directed- To test sugar 7 x daily blood-glucose sensor (Curefab G7 Sensor device) test blood sugar three times daily fluticasone propion-salmeterol 500-50 mcg/dose (Wixela Inhub) 2 inhalations inhalation BID insulin aspart U-100 (Novolog U-100 Insulin aspart) 25 units subcut TID insulin glargine (Lantus U-100 Insulin) 50 units subcut BEDTIME semaglutide (Ozempic) mg subcut QWEEK valsartan 80 mg PO DAILY Tobacco use date assessed: 03/28/25 Dental Screening Dental Screen Date: 03/28/25 HPI HPI Comments History of Present Illness Details History of Present Illness The patient is a 65 year old male presenting for follow-up and management of multiple chronic conditions, including stage 3 kidney disease. He has stage 2-3A borderline chronic kidney disease, and his kidney function has improved from 42 to 50 since medications were adjusted. He reports a history of a kidney infection which caused fatigue. He follows regularly with a money order clerk. The patient also has a history of type 2 diabetes mellitus, which was previously uncontrolled with an A1c as high as 7.6, but is now well-controlled with an A1c of 5.8. He is managed by an hide tanner, Dr. Matson, and his current regimen includes 25 units of Lovelag three times a day, 50 units of insulin at night, and 2 mg of Ozempic weekly. His blood pressure is well-controlled on valsartan. Regarding his cholesterol, his LDL was 91 on recent labs, down from 117 in May, and his triglycerides are noted to be very high. He was previously on simvastatin. He has lost approximately 17 pounds since his last visit. 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 He is planning to start a workout program twice a week with a physical therapist to receive guidance on using weights. Medical History: - Stage 3 Chronic Kidney Disease, border line stage 2/3A - Type 2 Diabetes Mellitus - Hypertension - Hyperlipidemia - History of kidney infection Surgical History: - Knee replacement a year and a half ago Medications: - Lovela units three times a day fo r diabetes - Insulin: 50 units at night for diabete s - Ozempic: 2 mg weekly for diabetes - Valsartan: for hypertension - Previously on simvastatin Diagnostic Results: - Labs: Kidney function at 50 (up from a previous value of 42). - Labs: A1c is 5.8%, improved from 6.8% and 7.6% in 2022. - Labs: LDL is 91, down from 117 in May. - Labs: Triglycerides are very high. - Tests and Diagnostics: Calculated 10-y ear ASCVD risk is approximately 30%. 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 - Substance Use: Denies smoking. - Exercise: Currently has a low activity level but is motivated to start a new fitness regimen with a physical therapist, focusing on weight training twice a week for five weeks. - Functional Status: Reports fatigue thr oughout the past year. - Weight Management: Has successfully lo st 17 pounds since his last visit. [facility] Medical History (Updated 09/19/25 @ 08:31 by Gutierrez Kessler MD) Groin pain Mixed hyperlipidemia Murmur, cardiac CKD stage 3 due to type 2 diabetes mellitus Elevated liver enzymes Essential hypertension Diabetes mellitus Obesity (BMI 30-39.9) Surgical History History of ear, nose, and throat (ENT) surgery History of total right knee replacement Family History Mother No problems noted. Father No problems noted. 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 How often do you have a drink containing alcohol?: Never 3. How often do you have six or more drinks on one occasion?: Never Total Score: 0 MELODIE-7 AMB Questionnaire MELODIE-7 Date MELODIE - 7 assessed: 03/28/25 Source: Developed by Drs. Sundar Luna, Peggy Kevin, Omkar Vega and colleagues, with an educational john from [employer]. Review of Systems Narrative Review of Systems - General: Reports fatigue for the past year. - Musculoskeletal: Reports pain in his groin. - Respiratory: Reports a cough after his was sick. All systems reviewed & are unremarkable except as reviewed in HPI and above Physical exam (Primary Care) Vital Signs: Last Vital Signs Temp 96.9 F 09/19/25 08:11 Pulse 87 09/19/25 08:11 Resp 16 09/19/25 08:11 BP 130/80 09/19/25 08:11 Pulse Ox 97 09/19/25 08:11 Oxygen Delivery Method Room Air 09/19/25 08:11 Care Plan Goal for BP management: Pressures in goal Next steps: Continue valsartan BMI result Body Mass Index 44.8 Tobacco/Smoking Status: Tobacco use Status Tobacco use date assessed 03/28/25 09/19/25 08:16 Patient Tobacco Use Status Never used Tobacco 09/19/25 08:16 e-Cigarette/Vaping Use Never Used 09/19/25 08:16 Thrive Assessment: Date of Thrive Assessment Date Thrive assessed 03/28/25 09/19/25 08:16 Narrative Physical Exam General: +Alert and oriented, Well nourished, No acute distress. Eye: Pupils are equal, round and reactive to light, Intact accommodation, Extraocular movements are intact, Normal conjunctiva, Vision unchanged. HENT: Normocephalic, Atraumatic, Tympanic membranes are clear, Normal hearing, Oral mucosa is moist, No pharyngeal erythema, Ear canals patent. Respiratory: Lungs CTA bilaterally, No wheeze, Respirations are non-labored, Cough present. Cardiovascular: Regular rate, Regular rhythm, S1 auscultated, S2 auscultated, No murmur, Good pulses equal in all extremities, Normal peripheral perfusion, No edema. Gastrointestinal: Soft, Non-tender, Non-distended, Normal bowel sounds, No organomegaly, Pain in groin area. Musculoskeletal: Normal range of motion, Normal strength, No tenderness, No swelling, No deformity, Normal gait. Integumentary: Warm, Dry, Alexis, Intact. Neurologic: Alert, Oriented, Normal sensory, Normal motor function, No focal defects, Cranial Nerves II-XII are grossly intact, Normal deep tendon reflexes. Psychiatric: Cooperative, Appropriate mood & affect, Normal judgment. Coding Level of Care Code Est Pt Level 4 (95063) Add On Problem Visit Only Diagnoses CKD stage 3 due to type 2 diabetes mellitus E11.22; N18.30 Type 2 diabetes mellitus with stage 3b chronic kidney disease, with long-term current use of insulin E11.22; N18.32; Z79.4 Diabetes mellitus type: type 2 Diabetes mellitus adjunct faculty for medical terminology insulin use: with jail use Diabetes mellitus complication status: with kidney complications Diabetes mellitus complication detail: with chronic kidney disease Chronic kidney disease stage: stage 3 (moderate) Chronic kidney disease stage 3 subtype: stage 3b (GFR 30-44) Mixed hyperlipidemia E78.2 Essential hypertension I10 Left inguinal pain R10.32 Laterality: left Assessment & Plan Assessment & Plan (1) CKD stage 3 due to type 2 diabetes mellitus: Comment: - Kidney function is stable, having improved to a GFR of 50. - The plan is to protect kidney function by maintaining tight control of blood pressure and diabetes. - He follows with nephrology, and no repeat labs are indicated at this time as his condition is not expected to change rapidly. Code(s): E11.22 - Type 2 diabetes mellitus with diabetic chronic kidney disease; N18.30 - Chronic kidney disease, stage 3 unspecified Category: Medical (2) Diabetes mellitus: Comment: - The patient's diabetes is well-controlled with an A1c of 5.8. - He will continue his current medication regimen, which includes Lovelag, basal insulin, and Ozempic, under the management of his hide tanner. - Continued weight loss is encouraged. Code(s): E11.9 - Type 2 diabetes mellitus without complications Category: Medical Qualifiers: Diabetes mellitus type: type 2 Diabetes mellitus adjunct faculty for medical terminology insulin use: with adjunct faculty for medical terminology use Diabetes mellitus complication status: with kidney complications Diabetes mellitus complication detail: with chronic kidney disease Chronic kidney disease stage: stage 3 (moderate) Chronic kidney disease stage 3 subtype: stage 3b (GFR 30-44) Qualified Code(s): E11.22 - Type 2 diabetes mellitus with diabetic chronic kidney disease; N18.32 - Chronic kidney disease, stage 3b; Z79.4 - adjunct faculty for medical terminology (current) use of insulin (3) Mixed hyperlipidemia: Comment: - His LDL is 91 and triglycerides are very high, contributing to a 10-year ASCVD risk of approximately 30%. - A prescription for a high-intensity statin, atorvastatin, will be sent. - He is advised to take it at night to minimize potential side effects such as m uscle pain. Code(s): E78.2 - Mixed hyperlipidemia Category: Medical (4) Essential hypertension: Comment: - His blood pressure is well-controlled on valsartan. - He will continue his current treatment. Code(s): I10 - Essential (primary) hypertension Category: Medical (5) Groin pain: Comment: - The patient's groin pain is thought to be muscular in origin. - He is encouraged to increase his activity levels, and he has a plan to start a supervised exercise program. Code(s): R10.30 - Lower abdominal pain, unspecified Category: Medical Qualifiers: Laterality: left Qualified Code(s): R10.32 - Left lower quadrant pain Plan: Health Maintenance: - ASCVD Risk Reduction: With a calculated 10-year risk of 30% for coronary artery disease, a high-intensity statin (atorvastatin) will be initiated to reduce this risk. - Weight Management: The patient has successfully lost 17 pounds and is commended for this progress. - Continued weight loss is encouraged to improve diabetes control. - Exercise: The patient is planning to begin a supervised exercise program with a physical therapist to incorporate weight training. - Vaccinations: The patient has received his COVID and flu shots for the season. Patient was informed and verbally consented to the use of an ambient scribe for clinic note documentation during this visit. Plan I discussed the patient's stable stage 3 kidney disease and explained that the function has improved slightly to 50, emphasizing that the main goal is to prevent further decline through good diabetes and blood pressure control. I commended him on his excellent diabetes control, as evidenced by his A1c of 5.8, and his 17-pound weight loss. We discussed his high triglycerides and LDL of 91, which, in the context of his diabetes, contribute to a 10-year ASCVD risk of about 30%. I recommended starting a high-intensity statin to lower this risk and explained that while it can cause muscle pain, taking it at night can help mitigate this side effect. I reassured him that this medication is safe for his kidneys. We agreed on a follow-up plan for an annual physical in six months, with labs to be drawn one week prior. I explained that more frequent lab monitoring for his kidney function is not necessary at this time as his condition is stable. Orders: Orders Comprehensive Met. Panel 6 Months Z00.00 - Encounter for general adult medical examination without abnormal findings Hemoglobin A1c 6 Months Z00.00 - Encounter for general adult medical examin ation without abnormal findings TSH reflex Free T4 6 Months Z00.00 - Encounter for general adult medical examination without abnormal findings Vitamin D 25-OH Total 6 Months Z00.00 - Encounter for general adult medical examination without abnormal findings Complete Blood Count Auto Diff 6 Months Z00.00 - Encounter for general adult medical examination without abnormal findings Lipid Panel 6 Months Z00.00 - Encounter for general adult medical examination without abnormal findings Microalbumin, Random (w Creat) 6 Months Z00.00 - Encounter for general adult medical examination without abnormal findings Medications: New atorvastatin (Lipitor) 40 mg PO BEDTIME 90 tabs 1RF Patient Instructions: - A prescription for atorvastatin has been sent to your pharmacy. - Take one tablet every night to help lower your cholesterol and reduce your risk of heart attack and stroke. - Continue all your current medications for diabetes and high blood pressure as prescribed. - Continue your efforts with weight loss and healthy eating. - Follow through with your plan to start the exercise program with the physical therapist. - There is no need for any new lab tests at this time. - Please schedule a follow-up appointment in six months for your annual physical. - We will have you get your blood work done a week before that visit.
[2025-09-19 08:11] VITALS: BP 130/80; PULSE 87; RESP 16; TEMP 36.1; O2SAT 97; BMI 44.8
== END 2025-09-19 08:28 | disposition home or self-care (01) ==
LOC: HO.HMCHD 07:55
PROVIDERS: PCP Student in an Organized Health Care Education/Training Program; Visit Provider Student in an Organized Health Care Education/Training Program
DX: E11.22 Type 2 diabetes mellitus with diabetic chronic kidney disease (principal); N18.30 Chronic kidney disease, stage 3 unspecified; N18.32 Chronic kidney disease, stage 3b; Z79.4 Long term (current) use of insulin; E78.2 Mixed hyperlipidemia; I10 Essential (primary) hypertension; R10.32 Left lower quadrant pain